=== PATIENT | female | born 1950 | race Caucasian/White ===

== ENCOUNTER 2017-11-02 22:49 | Emergency (ER) | payer MEDICARE ==
[2017-11-02 22:55] VITALS: RESP 18
[2017-11-02] MEDS ORDERED: SODIUM CHLORIDE 0.9% 1,000 ML IV STA ×2 (23:16)
[2017-11-02] MEDS ORDERED: PANTOPRAZOLE 40 MG/10 ML VIAL IVP STA (23:17)
[2017-11-02] MEDS ORDERED: KETOROLAC 30 MG/ML 1 ML VIAL IVP STA (23:17)
[2017-11-02] MEDS ORDERED: MAG HYDROX/AL HYDROX/SIMETH 30 ML, HYOSCYAMINE ELIXIR 10 ML, CIMETIDINE HCL 300 MG PO STA ×3 (23:17)
[2017-11-02 23:34] LABS: Basophils % (A) 0 %; Eosinophils # (A) 0.4 k/uL (0-0.7); Eosinophils % (A) 4 %; HCT 46.8 % (34.0-46.0); HGB 15.5 gm/dL (11.4-16.0); Lymphocytes # (A) 2.8 k/uL (1.0-4.8); Lymphocytes % (A) 29 %; MCH 28.7 pg (25.0-35.0); MCHC 33.2 g/dL (31.0-37.0); MCV 86.5 fL (80.0-100.0); Mean Platelet Volume 7.2; Monocytes # (A) 0.7 k/uL (0-1.0); Monocytes % (A) 7 %; Neutrophils # (A) 5.6 k/uL (1.3-7.7); Neutrophils % (A) 57 %; Platelet Count 223 k/uL (150-450); RBC 5.41 m/uL (3.80-5.40); WBC 9.8 k/uL (3.8-10.6)
[2017-11-02 23:44] LABS: Calcium 10.2 mg/dL (8.4-10.2); Magnesium 2.2 mg/dL (1.6-2.3); Potassium 4.2 mmol/L (3.5-5.1); Total Bilirubin 1.1 mg/dL (0.2-1.3); Total Protein 6.7 g/dL (6.3-8.2)
--- NOTE | 2017-11-02 23:45 | XR ---
EXAMINATION TYPE: XR chest 2V DATE OF EXAM: 11/02/2017 COMPARISON: 06/20/2016 HISTORY: Epigastric pain TECHNIQUE: Frontal and lateral views of the chest are obtained. FINDINGS: Heart and mediastinum are normal. Lungs are clear. Diaphragm is normal. There are chest le ads. Bony thorax is intact. IMPRESSION: Normal chest. No change.
[2017-11-02 23:49] LABS: Partial Thromboplastin Time 24.5 sec (22.0-30.0); Prothrombin Time 10.1 sec (9.0-12.0)
--- NOTE | 2017-11-03 00:03 | ED ---
Chest Pain HPI - General Chief Complaint: Chest Pain Stated Complaint: chest pain Time Seen by Provider: 11/02/17 22:58 Source: patient, RN notes reviewed, old records reviewed Mode of arrival: ambulatory Limitations: no limitations - History of Present Illness Initial Comments: 59-year-old male presents emergency Department chief complaint of burning sensation in her chest. She reports symptomsfor 3 days. She has history of GERD. She is concerned because she's been having the symptoms are not resolving with her usual Prilosec and Zantac that she thought she may have cardiac-related patient does have 1 stent. Denies any significant shortness of breath. She reports she's had no cough. She does state the pain kind of goes to her abdomen. - Related Data Home Medications Medication Instructions Recorded Confirmed Aspirin 162 mg PO BID 07/21/14 10/02/15 Atorvastatin [Lipitor] 80 mg PO QAM 07/21/14 10/02/15 Benazepril HCl 10 mg PO QAM 07/21/14 10/02/15 Insulin Glargine,Hum.rec.anlog 28 units SQ HS 07/21/14 10/02/15 [Lantus Solostar] sitaGLIPtin [Januvia] 100 mg PO QAM 07/21/14 10/02/15 Isosorbide Mononitrate ER [Imdur] 30 mg PO QAM 09/27/15 10/02/15 Metoprolol Succinate [Toprol XL] 50 mg PO BID 09/27/15 10/02/15 metFORMIN HCL 1,000 mg PO AC-SUPPER 09/27/15 10/02/15 metFORMIN HCL [Glucophage] 500 mg PO DAILY 09/27/15 10/02/15 Allergies Allergy/AdvReac Type Severity Reaction Status Date / Time No Known Allergies Allergy Verified 11/02/17 22:54 Review of Systems ROS Statement: Those systems with pertinent positive or pertinent negative responses have been documented in the HPI. ROS Other: All systems not noted in ROS Statement are negative. EKG Findings - EKG Comments: EKG Findings:: EKG shows normal sinus rhythm normal EKG. Ventricular rate of 69 bpm. KS interval 186. QT MRSA 92 ms. QT QTC 396/424. Past Medical History Past Medical History: Coronary Artery Disease (CAD), Cancer, Diabetes Mellitus, Hyperlipidemia, Hypertension, Osteoarthritis (OA) Additional Past Medical History / Comment(s): SKIN CANCER , KIDNEY STONES History of Any Multi-Drug Resistant Organisms: None Reported Past Surgical History: Adenoidectomy, Section, Cholecystectomy, Heart Catheterization, Heart Catheterization With Stent, Joint Replacement, Orthopedic Surgery, Tonsillectomy, Tubal Ligation Additional Past Surgical History / Comment(s): CATARACT BILATERAL EYE, TOTAL RIGHT AND LEFT KNEE, BILATERAL CARPAL TUNNEL RELEASE,C- SECTION X3, Past Anesthesia/Blood Transfusion Reactions: Motion Sickness Date of Last Stent Placement:: 10/2008 Past Psychological History: No Psychological Hx Reported Smoking Status: Never smoker Past Alcohol Use History: None Reported Past Drug Use History: None Reported - Past Family History Mother Family Medical History: Dementia Son(s) Family Medical History: Deep Vein Thrombosis (DVT) General Exam - General Exam Comments Initial Comments: Well appearing 67 year old female, no distress. Limitations: no limitations General appearance: alert, in no apparent distress Head exam: Present: atraumatic, normocephalic, normal inspection Eye exam: Present: normal appearance, PERRL, EOMI. Absent: scleral icterus, conjunctival injection, periorbital swelling ENT exam: Present: normal exam, mucous membranes moist Neck exam: Present: normal inspection. Absent: tenderness, meningismus, lymphadenopathy Cardiovascular Exam: Present: regular rate, normal rhythm, normal heart sounds. Absent: systolic murmur, diastolic murmur, rubs, gallop, clicks GI/Abdominal exam: Present: soft, tenderness (minimal epigastric tenderness), normal bowel sounds. Absent: distended, guarding, rebound, rigid Back exam: Present: normal inspection Neurological exam: Present: alert, oriented X3, CN II-XII intact Psychiatric exam: Present: normal affect, normal mood Course Vital Signs 11/02/17 11/03/17 11/03/17 22:50 00:29 00:43 Temperature 96.9 F L 97.1 F L Pulse Rate 70 62 Respiratory 18 18 Rate Blood Pressure 175/77 137/64 O2 Sat by Pulse 94 L 96 Oximetry Chest Pain MDM - MDM 59-year-old male presents emergency Department chief complaint of burning sensation in her chest. She reports symptomsfor 3 days. She has history of GERD. She is concerned because she's been having the symptoms are not resolving with her usual Prilosec and Zantac that she thought she may have cardiac-related patient does have 1 stent. PAtient EKG is unremarkable, no ST changes. Patient has normal lab work and negative troponin. She felt better after protonix and GI cocktail. Discussed with lenght of symptoms, patient pain is likely GERD vs cardiac etiology with normal lab results. Patient agrees, discussed follow up with PCP and return parameters discussed. Patient agrees and feels well. Disposition Clinical Impression: GERD (gastroesophageal reflux disease) Disposition: HOME SELF-CARE Condition: Good Instructions: Gastroesophageal Reflux Disease (ED) Additional Instructions: Patient advised to have a clear liquid diet for the next few days. Continue your Prilosec and Zantac medications. Return to the emergency department if any alarming signs or symptoms occur. Is patient prescribed a controlled substance at d/c from ED?: No If prescribed controlled substance>3 days was MAPS reviewed?: No When asked, does pt state using other controlled substances?: No Referrals: Lukas Hernandez DO [Primary Care Provider] - 1-2 days Time of Disposition: 00:33
[2017-11-03 00:05] LABS: Creatine Kinase 63 U/L (30-135)
[2017-11-03 00:18] LABS: Creatine Kinase MB 0.5 ng/mL (0.0-2.4); Troponin I <0.012 ng/mL (0.000-0.034)
[2017-11-03 00:30] VITALS: BP 137/64; PULSE 62
[2017-11-03 00:44] VITALS: TEMP 97.1
== END 2017-11-03 00:43 | disposition home or self-care (01) ==
LOC: EC 22:49
DX: K21.9 Gastro-esophageal reflux disease without esophagitis (principal); I25.10 Atherosclerotic heart disease of native coronary artery without angina pectoris; E11.9 Type 2 diabetes mellitus without complications; E78.5 Hyperlipidemia, unspecified; I10 Essential (primary) hypertension; Z95.5 Presence of coronary angioplasty implant and graft; Z79.4 Long term (current) use of insulin; Z79.82 Long term (current) use of aspirin; Z79.84 Long term (current) use of oral hypoglycemic drugs; Z79.899 Other long term (current) drug therapy
CPT/HCPCS: 99285; 96374; 96375; 96361; 36415; 93005; 83880; 80053; 82150; 82550; 82553; 83690; 83735; 84484; 85025; 85610; 85730; 71046; J1885; C9113

== ENCOUNTER → 2018-11-01 | Day surgery (SDC) | payer MEDICARE ==
[2018-10-28 15:29] VITALS: BMI 43.2
[~2018-11-01] MED LIST: LACTATED RINGERS 1,000 ML IV SCH; LIDOCAINE 1% 20 ML VIAL (10MG/ML) FOR IV START INTRADERMA PRN; LIDOCAINE 1% INJ 10MG/ML (20 ML MDV) ONE; PROPOFOL 10 MG/ML 20 ML VIAL IV ONE
[2018-11-01 07:17] VITALS: TEMP 98.1
[2018-11-01 07:25] LABS: Glucose,Whole Blood 187 mg/dL (75-99)
--- NOTE | 2018-11-01 08:34 | P.PCN ---
Date of Procedure: 11/01/18 Procedure(s) Performed: Procedure: Esophagogastroduodenoscopy and biopsy. Preoperative diagnosis: Gastroesophageal reflux and atypical chest pain. Postoperative diagnosis: 1. Small sliding hiatal hernia with no obvious esophagitis or complicated reflux disease. 2. Mild antral gastritis. 3. Multiple biopsies obtained from the duodenum, antrum and esophagus. Preparation and sedation: Was provided by anesthesia. Brief clinical history: The patient is 68-year-old female who was evaluated in the office earlier this month regarding issues with altered bowel function, abdominal pain, gastroesophageal reflux and atypical chest pain. There is family history of colon cancer and she had a colonoscopy in September 2015 that showed diverticulosis. The patient has been having acid reflux issues for the last year and takes omeprazole for that. Over the years, she has taken Zantac as needed for acid indigestion. She has been having epigastric pain and atypical chest pain and left upper quadrant pain. Occasional difficulty swallowing. In addition she has alternating constipation and diarrhea with sig nificant gas. No bleeding or weight loss. Procedure: With the patient on her left lateral decubitus position and after informed consent and adequate sedation, I passed the Olympus-GIF H190 video upp er endoscope through the cricopharyngeus down the esophagus. GE junction was at 40 cm from the incisors and there was a small sliding hiatal hernia but no obvious esophagitis or complicated reflux disease. The endoscope was then passed into the stomach which was insufflated with air and inspected in detail including the retroflex view in the cardia. There was some mottling and erythema in the antrum but no ulcers or erosions. Pyloric channel, duodenal bulb, post bulbar area and descending duodenum appeared within normal limits. I obtained biopsies from the duodenum, antrum and esophagus then the endoscope was withdrawn. The patient tolerated the procedure well. Plan: The patient was reassured. Will await biopsy results and make further plans based on her course and biopsy results.
[2018-11-01 09:00] VITALS: BP 146/76; PULSE 71; RESP 18
== END ==
LOC: ORWHC2ENDO 06:53
DX: K29.50 Unspecified chronic gastritis without bleeding (principal); K21.9 Gastro-esophageal reflux disease without esophagitis; K44.9 Diaphragmatic hernia without obstruction or gangrene; E78.5 Hyperlipidemia, unspecified; I25.10 Atherosclerotic heart disease of native coronary artery without angina pectoris; I10 Essential (primary) hypertension; A08.8 Other specified intestinal infections; E11.9 Type 2 diabetes mellitus without complications; Z79.4 Long term (current) use of insulin; Z80.0 Family history of malignant neoplasm of digestive organs; Z95.5 Presence of coronary angioplasty implant and graft; Z87.442 Personal history of urinary calculi; Z79.82 Long term (current) use of aspirin; Z79.899 Other long term (current) drug therapy
CPT/HCPCS: 88305; 43239; J2001; J2704

== ENCOUNTER 2019-01-31 21:10 | Observation (INO) | payer MEDICARE ==
[2019-01-31] MEDS ORDERED: SODIUM CHLORIDE 0.9% 1,000 ML IV STA (21:50)
--- NOTE | 2019-01-31 21:50 | ED ---
Chest Pain HPI - General Stated Complaint: Tightness in Chest Source: patient Mode of arrival: ambulatory Limitations: no limitations - History of Present Illness Initial Comments: Vita Romero is a 68-year-old female with known coronary artery disease status post stenting approximately 10 years ago and a cardiac catheterization about 8 years ago at which time she was told she had some blockages but none warranting stenting at that time. Patient reports that she follows annually with her heel dipper Dr. Singleton. Patient reports that today she was just doing her usual activities, she was home when she began feeling some discomfort in her chest and lightheadedness. Patient reports feeling a pressure-like discomfort, seems to be relieved with rest, came on suddenly. With this she felt somewhat lightheaded but again feels better resting here in the emergency department. Patient is taken 4 baby aspirin today prior to arrival. Patient denies any associated fevers, chills, palpitations, cough or recent illness. - Related Data Home Medications Medication Instructions Recorded Confirmed Aspirin 162 mg PO BID 07/21/14 01/31/19 Atorvastatin [Lipitor] 80 mg PO W/SUPPER 07/21/14 01/31/19 Insulin Glargine,Hum.rec.anlog 25 units SQ HS 07/21/14 01/31/19 [Lantus Solostar] Isosorbide Mononitrate ER [Imdur] 30 mg PO W/SUPPER 09/27/15 01/31/19 Metoprolol Succinate [Toprol XL] 50 mg PO QAM 09/27/15 01/31/19 Benazepril [Lotensin] 5 mg PO W/SUPPER 10/28/18 01/31/19 Cholecalciferol [Vitamin D3] 5,000 unit PO DAILY 10/28/18 01/31/19 Insulin Aspart [NovoLOG Flexpen] 10 units SQ TID-W/MEALS PRN 10/28/18 01/31/19 Omeprazole [PriLOSEC] 20 mg PO AC-BRKFST 10/28/18 01/31/19 Pioglitazone [Actos] 30 mg PO DAILY 10/28/18 01/31/19 Bifidobacterium Infantis [Align] 4 mg PO DAILY 01/31/19 01/31/19 Calcium Carbonate [Calcium] 1,200 mg PO DAILY 01/31/19 01/31/19 Insulin Aspart [NovoLOG Flexpen] See Protocol SQ AC-TID 01/31/19 01/31/19 Allergies Allergy/AdvReac Type Severity Reaction Status Date / Time No Known Allergies Allergy Verified 01/31/19 21:54 Review of Systems ROS Statement: Those systems with pertinent positive or pertinent negative responses have been documented in the HPI. ROS Other: All systems not noted in ROS Statement are negative. EKG Findings - EKG Comments: EKG Findings:: EKG was obtained due to his complaint of chest pain, EKG was obtained at 2132, rate is 71 rhythm is sinus there is normal axis there are normal intervals, [place] 172, QRS 90, QTc is 421, there are no acute ST elevations or depressions there is no evidence of acute ischemia or infarction. Past Medical History Past Medical History: Coronary Artery Disease (CAD), Cancer, Diabetes Mellitus, GERD/Reflux, Hypertension, Osteoarthritis (OA) Additional Past Medical History / Comment(s): SKIN CANCER , KIDNEY STONES, diarrhea for 6 weeks couple months ago, urinary leakage History of Any Multi-Drug Resistant Organisms: None Reported Past Surgical History: Adenoidectomy, Section, Cholecystectomy, Heart Catheterization, Heart Catheterization With Stent, Joint Replacement, Orthopedic Surgery, Tonsillectomy, Tubal Ligation Additional Past Surgical History / Comment(s): CATARACT BILATERAL EYE, TOTAL mallorie KNEE replacement, BILATERAL CARPAL TUNNEL RELEASE,C- SECTION X3, cancer removed from upper lip Past Anesthesia/Blood Transfusion Reactions: Motion Sickness Date of Last Stent Placement:: 10/2008 Past Psychological History: No Psychological Hx Reported Smoking Status: Never smoker Past Alcohol Use History: None Reported Past Drug Use History: None Reported - Past Family History Son(s) Family Medical History: Deep Vein Thrombosis (DVT) General Exam - General Exam Comments Initial Comments: Physical Exam GENERAL: Patient is well-developed and well-nourished. Patient is nontoxic and well- hydrated and is in no distress. HENT: Normocephalic, Atraumatic. EYES: PERRL, EOMI PULMONARY: Unlabored respirations. No audible rales rhonchi or wheezing was noted. CARDIOVASCULAR: There is a regular rate and rhythm without any murmurs gallops or rubs. Warm and well-perfused extremities No lower extremity edema ABDOMEN: Soft and nontender with normal bowel sounds. SKIN: Skin is clear with no lesions or rashes and otherwise unremarkable. : Deferred NEUROLOGIC: Patient is alert and oriented x3. Moving all extremities spontaneously MUSCULOSKELETAL: Normal extremities with adequate strength and full range of motion. No lower extremity swelling or edema. No calf tenderness. PSYCHIATRIC: Normal psychiatric evaluation Limitations: no limitations Course Vital Signs 01/31/19 21:27 Temperature 98.1 F Pulse Rate 63 Respiratory 18 Rate Blood Pressure 139/80 O2 Sat by Pulse 98 Oximetry Chest Pain MDM - MDM The patient was seen and evaluated, history is obtained from the patient and review of medical record Patient with multiple cardiac risk factors including known coronary artery disease, previous stenting, previous cardiac cath with known partial occlusions, hypertension, hyperlipidemia, diabetes obesity and advanced age presenting with chest pain that began with minimal exertion resolved with rest associated with lightheadedness and shortness of breath Initial EKG is nonischemic HEART score - 6 Initial labs were negative however given the high-risk nature of the patient's pain decision was made to start heparin and admit the patient for further evaluation by cardiology. Patient was updated on this plan for this and is agreeable. Primary care physician Dr. Hernandez typically admits to Dr. murphy however and his absence will be admitted to [facility] with patient's heel dipper Dr. Denise in on consult. Disposition Clinical Impression: Chest pain Disposition: ADMITTED IP TO THIS HOSP Condition: Stable Referrals: Lukas Hernandez DO [Primary Care Provider] - 1-2 days
[2019-01-31 22:01] LABS: Basophils % (A) 0 %; Eosinophils # (A) 0.2 k/uL (0-0.7); Eosinophils % (A) 3 %; HCT 44.9 % (34.0-46.0); HGB 14.7 gm/dL (11.4-16.0); Lymphocytes # (A) 3.2 k/uL (1.0-4.8); Lymphocytes % (A) 35 %; MCH 29.2 pg (25.0-35.0); MCHC 32.8 g/dL (31.0-37.0); MCV 88.9 fL (80.0-100.0); Mean Platelet Volume 6.8; Monocytes # (A) 0.8 k/uL (0-1.0); Monocytes % (A) 9 %; Neutrophils # (A) 4.5 k/uL (1.3-7.7); Neutrophils % (A) 50 %; Platelet Count 237 k/uL (150-450); RBC 5.05 m/uL (3.80-5.40); RDW 13.3 % (11.5-15.5)
[2019-01-31 22:11] LABS: Albumin 4.2 g/dL (3.5-5.0); INR 0.9 (<1.2); Magnesium 2.2 mg/dL (1.6-2.3); Potassium 4.2 mmol/L (3.5-5.1); Prothrombin Time 10.1 sec (9.0-12.0); Total Bilirubin 1.2 mg/dL (0.2-1.3); Total Protein 7.4 g/dL (6.3-8.2)
--- NOTE | 2019-01-31 22:24 | XR ---
EXAM: XR Chest, 2 Views CLINICAL HISTORY: ITS.REASON XR Reason: Chest Pain TECHNIQUE: Frontal and lateral views of the chest. COMPARISON: Chest radiography 11/02/17. FINDINGS: Lungs: Unremarkable. No consolidation. Pleural space: Unremarkable. No pneumothorax. Heart: Unremarkable. No cardiomegaly. Mediastinum: Unremarkable. Bones/joints: Degenerative spine changes. IMPRESSION: No acute cardiopulmonary disease.
[2019-01-31] MEDS ORDERED: NITROGLYCERIN SL TABS 0.4 MG TAB SUBLINGUAL PRN (22:32)
[2019-01-31] MEDS ORDERED: MORPHINE SULFATE 4 MG/ML SYRINGE IV PRN (22:32)
[2019-01-31] MEDS ORDERED: HEPARIN SODIUM,PORCINE 5,000 UNIT/ML 1 ML VIAL IV ONE (22:32)
[2019-01-31] MEDS ORDERED: HEPARIN SOD,PORK IN 0.45% NACL 25,000 UNIT in 0.45% NACL 1 250ML.BAG IV SCH (22:45)
[2019-01-31 23:51] LABS: Glucose,Whole Blood 103 mg/dL (75-99)
[2019-02-01 00:19] VITALS: BMI 44.0
[2019-02-01 04:51] LABS: Mean Platelet Volume 6.8; Platelet Count 204 k/uL (150-450)
[2019-02-01 04:59] LABS: Cholesterol 96 mg/dL (<200); HDL Cholesterol 45 mg/dL (40-60); LDL Cholesterol,Calculated 39 mg/dL (0-99); Triglycerides 61 mg/dL (<150)
[2019-02-01 06:34] LABS: Glucose,Whole Blood 111 mg/dL (75-99)
[2019-02-01] MEDS: INSULIN ASPART (NovoLOG) 100 UNIT/ML VIAL SQ SCH ×3 (06:34→16:18)
[2019-02-01] MEDS ORDERED: PANTOPRAZOLE 40 MG TABLET PO SCH (07:30)
[2019-02-01 08:18] VITALS: RESP 18
[2019-02-01] MEDS ORDERED: ASPIRIN 325 MG TAB PO SCH (09:00)
[2019-02-01] MEDS ORDERED: METOPROLOL SUCCINATE (ER) 50 MG TAB.ER.24H PO SCH (09:00)
[2019-02-01] MEDS ORDERED: ASPIRIN 325 MG TAB PO STA (09:46)
[2019-02-01] MEDS ORDERED: ALPRAZolam 0.5 MG TAB PO PRN (09:46)
[2019-02-01] MEDS ORDERED: NITROGLYCERIN SL TABS 0.4 MG TAB SUBLINGUAL PRN (09:46)
[2019-02-01] MEDS ORDERED: SODIUM CHLORIDE 0.9% 1,000 ML in EMPTY BAG 1 BAG IV ONE (09:46)
[2019-02-01] MEDS ORDERED: ALPRAZolam 0.25 MG TAB PO PRN (09:46)
[2019-02-01] MEDS ORDERED: ATORVASTATIN 80 MG TAB PO STA (09:46)
[2019-02-01] MEDS ORDERED: fentaNYL (PF) 50 MCG/ML 2 ML AMP ONE (10:02)
[2019-02-01] MEDS ORDERED: LIDOCAINE 1% INJ 10MG/ML (20 ML MDV) ONE (10:02)
--- NOTE | 2019-02-01 10:10 | CONS ---
CONSULTATION CHIEF COMPLAINT: Chest pain. Vita is a 68-year-old lady with history of coronary artery disease, hypertension, diabetes, dyslipidemia, who presented to hospital complaining of chest tightness. She describes it as moderate intensity, precordial chest pressure that came on with exertion and radiated to her back. She took one sublingual nitroglycerin last night. She has known CAD and underwent angioplasty of mid LAD in 2004. At the time of my evaluation this morning, she appears comfortable at rest and is free of symptoms. She has had 2 sets of troponins that are negative. Her LDL cholesterol is well controlled. EKG does not reveal ischemic changes. Hemoglobin is normal at 14.7 and the creatinine is 0.8. PAST MEDICAL HISTORY: Significant for coronary artery disease, hypertension, diabetes, dyslipidemia. MEDICATIONS: Medications include Actos, Prilosec, Toprol XL, Imdur 30 daily, insulin, calcium, Lotensin, Lipitor, aspirin. ALLERGIES: There are no known drug allergies. FAMILY HISTORY: Family history is significant for coronary artery disease in her grandparents. SOCIAL HISTORY: Negative for smoking, ETOH abuse or drug abuse. REVIEW OF SYSTEMS: HEENT is unremarkable. CARDIAC: As described above. RESPIRATORY: Negative. GI: Negative. GENITOURINARY: Negative. ALLERGY/IMMUNOLOGY: Negative. SKIN: Negative. MUSCULOSKELETAL: Significant for arthritis. PSYCHOSOCIAL: Negative. ENDOCRINE: Negative. DERM: Negative. CONSTITUTIONAL: Negative. ONCOLOGICAL: Negative. TAPE DUPLICATOR: Negative. Rest of the system review is not relevant. PHYSICAL EXAMINATION: On exam, comfortable at rest. Vital signs are stable. There is no jugular venous distention. Carotid upstroke is normal. There is no bruit. Chest exam reveals good air entry bilaterally. Heart exam reveals first and second heart sounds. No gallop. No murmur. No rub. Abdomen is soft, nontender. Examination of extremities did not reveal any edema. Peripheral pulses are felt. ASSESSMENT: 1. Unstable angina. 2. Hypertension. 3. Diabetes. 4. Dyslipidemia. PLAN: I advised the patient to undergo cardiac catheterization. I will obtain a 2-D echo to evaluate her LV function. MMODL / IJN: [id number] /
[2019-02-01] MEDS ORDERED: SODIUM CHLORIDE 0.9% 500 ML 500 ML IV ONE (10:25)
[2019-02-01] MEDS ORDERED: fentaNYL (PF) 50 MCG/ML 2 ML AMP IV ONE (10:35)
[2019-02-01] MEDS ORDERED: MIDAZOLAM (PF) 2 MG/2 ML VIAL IV ONE (10:35)
[2019-02-01] MEDS ORDERED: LIDOCAINE 1% INJ 10MG/ML (20 ML MDV) SQ ONE (10:36)
[2019-02-01] MEDS ORDERED: IOPAMIDOL-370 100ML BTL INJ ONE (10:46)
[2019-02-01] MEDS ORDERED: RX INFO: IV CONTRAST WAS GIVEN 1 EACH MISC MISCELLANE PRN (11:07)
--- NOTE | 2019-02-01 11:11 | CC ---
CARDIAC CATHETERIZATION REPORT INDICATION: Unstable angina in a patient with known CAD status post prior angioplasty of circumflex coronary artery. PROCEDURE NOTE: After obtaining informed consent, left heart catheterization and coronary angiogram are performed via the right femoral artery using standard Cooper catheters. The patient tolerated the procedure well without any obvious immediate complications. A femoral angiogram was performed and Angio-Seal was deployed for hemostasis. FINDINGS: 1. HEMODYNAMICS: Left ventricular end-diastolic pressure is 14 mm. There is no significant gradient across the aortic valve. 2. LEFT VENTRICULOGRAM: Left ventriculogram is not performed. 3. ANGIOGRAPHIC DATA: Left Main Coronary Artery: Left main coronary artery is a normal-sized vessel and is free of stenosis. Divides into left anterior descending coronary artery and circumflex coronary artery. Circumflex coronary artery was previously stented and the stent appears patent. Both the circumflex and the LAD appear calcified. There is a moderate area of atherosclerotic plaque in the mid LAD which seems unchanged compared to prior cardiac catheterization in 2015. Right coronary artery is a large dominant vessel and is free of significant stenosis. CONCLUSIONS: 1. Patent stent within the circumflex coronary artery. 2. Moderate atherosclerotic plaque in the LAD. 3. Calcified coronaries. PLAN: Patient will have optimal medical therapy. Patient received moderate conscious sedation. Total sedation time was 11 minutes. Angio-Seal was deployed for hemostasis. MMODL / IJN: [id number] /
[2019-02-01] MEDS ORDERED: SODIUM CHLORIDE 0.9% 1,000 ML IV SCH (11:15)
[2019-02-01 12:00] LABS: Glucose,Whole Blood 111 mg/dL (75-99)
--- NOTE | 2019-02-01 13:33 | ECHOF ---
Referral Reason:chest pain, known CAD MEASUREMENTS -------- HEIGHT: 157.5 cm WEIGHT: 109.3 kg BP: 128/58 IVSd: 1.2 cm (0.6 - 1.1) LVIDd: 5.1 cm (3.9 - 5.3) LVPWd: 1.1 cm (0.6 - 1.1) IVSs: 1.5 cm LVIDs: 3.0 cm LVPWs: 1.5 cm LA Diam: 3.9 cm (2.7 - 3.8) Ao Diam: 3.2 cm (2.0 - 3.7) AV Cusp: 1.9 cm (1.5 - 2.6) LA Diam: 4.2 cm (2.7 - 3.8) MV EXCURSION: 17.007 mm (> 18.000) MV EF SLOPE: 93 mm/s (70 - 150) EPSS: 0.3 cm MV E Jagdeep: 1.11 m/s MV DecT: 465 ms MV A Jagdeep: 0.96 m/s MV E/A Ratio: 1.15 AR PHT: 937 ms FINDINGS -------- Sinus rhythm. This was a technically good study. LV size, wall thickness and systolic function are normal, with an EF greater than 55%. The right ventricle is normal in size and function. The left atrium is normal in size. The right atrium is normal in size. Interatrial and interventricular septum intact. There is mild aortic valve sclerosis. There is mild aortic regurgitation. The mitral valve is normal. Mild mitral annular calcification present. There is trace to mild frantz ral regurgitation. The tricuspid valve appears structurally normal. Trace tricuspid regurgitation present. There is no evidence of pulmonary hypertension. Pulmonic valve appears structurally normal. The aortic root, ascending aorta and aortic arch are normal. Normal inferior vena cava with normal inspiratory collapse consistent with estimated right atrial pre ssure of 5 mmHg. The pericardium is normal. CONCLUSIONS -------- 1. Sinus rhythm. 2. This was a technically good study. 3. LV size, wall thickness and systolic function are normal, with an EF greater than 55%. 4. The right ventricle is normal in size and function. 5. The left atrium is normal in size. 6. The right atrium is normal in size. 7. Interatrial and interventricular septum intact. 8. There is mild aortic valve sclerosis. 9. There is mild aortic regurgitation. 10. The mitral valve is normal. 11. Mild mitral annular calcification present. 12. There is trace to mild mitral regurgitation. 13. The tricuspid valve appears structurally normal. 14. Trace tricuspid regurgitation present. 15. There is no evidence of pulmonary hypertension. 16. Pulmonic valve appears structurally normal. 17. The aortic root, ascending aorta and aortic arch are normal. 18. Normal inferior vena cava with normal inspiratory collapse consistent with estimated right atrial pressure of 5 mmHg. 19. The pericardium is normal. POWER LINE INSTALLER AND REPAIRER: Case Jerez RDCS
[2019-02-01 16:11] VITALS: BP 143/76; PULSE 67; TEMP 98.1
[2019-02-01] MEDS ORDERED: ATORVASTATIN 80 MG TAB PO SCH (17:30)
[2019-02-01] MEDS ORDERED: ISOSORBIDE MONONITRATE ER 30 MG TAB.ER.24H PO SCH (17:30)
[2019-02-01] MEDS ORDERED: LISINOPRIL 5 MG TAB PO SCH (17:30)
[2019-02-01] MEDS ORDERED: ASPIRIN 81 MG PO SCH (21:00)
--- NOTE | 2019-02-13 23:59 | P.HPIM ---
History of Present Illness H&P Date: 02/01/19 Chief Complaint: chest Pain Vita Romero is a 68-year-old female with known coronary artery disease status post stenting approximately 10 years ago and a cardiac catheterization about 8 years ago at which time she was told she had some blockages but none warranting stenting at that time. Patient reports that she follows annually with her landscape horticulture instructor Dr. charles. Patient reports that today she was just doing her usual activities, she was home when she began feeling some discomfort in her chest and lightheadedness. Patient reports feeling a pressure-like discomfort, seems to be relieved with rest, came on suddenly. With this she felt somewhat lightheaded but again feels better resting here in the emergency department. Patient is taken 4 baby aspirin today prior to arrival. Patient denies any associated fevers, chills, palpitations, cough or recent illness. EKG NSR CXR showed no cute cardiopulmonary process. troponi X2 negative Review of Systems Constitutional: Patient denies any fever or chills . Generalized weakness and body aches. Cardiovascular: Patient denies any chest pain or short of breath no pal pitations. Respiratory: patient denied any cough is from production. No shortness of breath Neurologic: Patient denied any numbness or tingling headache. Musculoskeletal: Patient denies any complaints of joint swelling or deformity. Skin: Negative Psychiatric: Negative Endocrine: No heat or cold intolerance. No recent weight gain. Genitourinary: No dysuria or hematuria. All other 14 point ROS negative except the above Past Medical History Past Medical History: Coronary Artery Disease (CAD), Cancer, Diabetes Mellitus, GERD/Reflux, Hypertension, Osteoarthritis (OA) Additional Past Medical History / Comment(s): SKIN CANCER , KIDNEY STONES, diarrhea for 6 weeks couple months ago, urinary leakage History of Any Multi-Drug Resistant Organisms: None Reported Past Surgical History: Adenoidectomy, Section, Cholecystectomy, Heart Catheterization, Heart Catheterization With Stent, Joint Replacement, Orthopedic Surgery, Tonsillectomy, Tubal Ligation Additional Past Surgical History / Comment(s): CATARACT BILATERAL EYE, TOTAL mallorie KNEE replacement, BILATERAL CARPAL TUNNEL RELEASE,C- SECTION X3, 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 Brother(s) Family Medical History: Cancer Additional Family Medical History / Comment(s): Pancreatic cancer, at age 62. Medications and Allergies Home Medications Medication Instructions Recorded Confirmed Type Aspirin 162 mg PO BID 07/21/14 01/31/19 History Atorvastatin [Lipitor] 80 mg PO W/SUPPER 07/21/14 01/31/19 History Insulin Glargine,Hum.rec.anlog 25 units SQ HS 07/21/14 01/31/19 History [Lantus Solostar] Isosorbide Mononitrate ER [Imdur] 30 mg PO W/SUPPER 09/27/15 01/31/19 History Metoprolol Succinate [Toprol XL] 50 mg PO QAM 09/27/15 01/31/19 History Benazepril [Lotensin] 5 mg PO W/SUPPER 10/28/18 01/31/19 History Cholecalciferol [Vitamin D3 (25 5,000 unit PO DAILY 10/28/18 01/31/19 History Mcg = 1000 Iu)] Insulin Aspart [NovoLOG Flexpen] 10 units SQ TID-W/MEALS PRN 10/28/18 01/31/19 History Omeprazole [PriLOSEC] 20 mg PO AC-BRKFST 10/28/18 01/31/19 History Pioglitazone [Actos] 30 mg PO DAILY 10/28/18 01/31/19 History Bifidobacterium Infantis [Align] 4 mg PO DAILY 01/31/19 01/31/19 History Calcium Carbonate [Calcium] 1,200 mg PO DAILY 01/31/19 01/31/19 History Insulin Aspart [NovoLOG Flexpen] See Protocol SQ AC-TID 01/31/19 01/31/19 History Allergies Allergy/AdvReac Type Severity Reaction Status Date / Time No Known Allergies Allergy Verified 01/31/19 21:54 Physical Exam Vitals: Vital Signs Temp Pulse Pulse Resp BP BP BP 02/01/19 08:00 98.2 F 61 18 144/69 02/01/19 04:00 97.7 F 63 16 128/58 02/01/19 00:00 97.7 F 70 17 166/71 01/31/19 23:06 66 16 120/62 01/31/19 23:00 67 15 01/31/19 22:30 65 18 139/80 01/31/19 21:27 98.1 F 63 18 139/80 01/31/19 21:25 Pulse Ox 02/01/19 08:00 96 02/01/19 04:00 02/01/19 00:00 96 01/31/19 23:06 98 01/31/19 23:00 95 01/31/19 22:30 97 01/31/19 21:27 98 01/31/19 21:25 98 Intake and Output 01/31/19 02/01/19 02/01/19 22:59 06:59 14:59 Intake Total 50 Balance 50 Intake: IV 50 Other: Voiding Method Toilet # Voids 1 1 # Bowel Movements 0 Weight 108.862 kg 109.6 kg Physical Exam GENERAL: Patient is well-developed and well-nourished. Patient is nontoxic and well- hydrated and is in no distress. HENT: Normocephalic, Atraumatic. EYES: PERRL, EOMI PULMONARY: Unlabored respirations. No audible rales rhonchi or wheezing was noted. CARDIOVASCULAR: There is a regular rate and rhythm without any murmurs gallops or rubs. Warm and well-perfused extremities No lower extremity edema ABDOMEN: Soft and nontender with normal bowel sounds. SKIN: Skin is clear with no lesions or rashes and otherwise unremarkable. : Deferred NEUROLOGIC: Patient is alert and oriented x3. Moving all extremities spontaneously MUSCULOSKELETAL: Normal extremities with adequate strength and full range of motion. No lower extremity swelling or edema. No calf tenderness. PSYCHIATRIC: Normal psychiatric evaluation Limitations: no limitations Results CBC & Chem 7: 02/01/19 04:18 01/31/19 21:38 Labs: Abnormal Lab Results - Last 24 Hours (Table) 01/31/19 01/31/19 02/01/19 Range/Units 21:38 23:49 04:18 APTT 70.7 H (22.0-30.0) sec BUN 22 H (7-17) mg/dL POC Glucose (mg/dL) 103 H (75-99) mg/dL 02/01/19 Range/Units 06:33 APTT (22.0-30.0) sec BUN (7-17) mg/dL POC Glucose (mg/dL) 111 H (75-99) mg/dL Thrombosis Risk Factor Assmnt - DVT/VTE Prophylaxis DVT/VTE Prophylaxis: Pharmacologic Prophylaxis ordered - Choose All That Apply Any of the Below Risk Factors Present?: Yes Each Factor Represents 1 point: Obesity (BMI >25) Other Risk Factors: Yes Each Risk Factor Represents 2 Points: Age 61-74 years Other congenital or acquired thrombophilia - If yes, enter type in comment: No Thrombosis Risk Factor Assessment Total Risk Factor Score: 3 Thrombosis Risk Factor Assessment Level: Moderate Risk Assessment and Plan Assessment: Unstable angina History of coronary artery disease status post stent placement Hypertension Diabetes type 2 Hyperlipidemia GERD PLan: Pt. will be continued on tele. serial troponin x2 negative. continued with insulin dose. continued with home meds. cardiology consult and further recommendations based on clinical course. Time with Patient: Greater than 30
--- NOTE | 2019-02-14 00:02 | P.DS ---
Providers Date of admission: 01/31/19 22:37 Expected date of discharge: 02/01/19 Attending physician: Ervin Zavala MD Consults: 01/31/19 22:33 Consult Physician Urgent Consulting Provider: Yuriy Jones Consult Reason/Comments: chest pain - known CAD Do you want consulting provider notified?: Yes, Notify in am Primary care physician: [facility] Course: Discharge Diagnosis Unstable angina History of coronary artery disease status post stent placement Hypertension Diabetes type 2 Hyperlipidemia GERD Hospital course. Vita Romero is a 68-year-old female with known coronary artery disease status post stenting approximately 10 years ago and a cardiac catheterization about 8 years ago at which time she was told she had some blockages but none warranting stenting at that time. Patient reports that she follows annually with her marine radio installer and servicer Dr. charles. Patient reports that today she was just doing her usual activities, she was home when she began feeling some discomfort in her chest and lightheadedness. Patient reports feeling a pressure-like discomfort, seems to be relieved with rest, came on suddenly. With this she felt somewhat lightheaded but again feels better resting here in the emergency department. Patient is taken 4 baby aspirin today prior to arrival. Patient denies any associated fevers, chills, palpitations, cough or recent illness. EKG NSR CXR showed no cute cardiopulmonary process. troponi X2 negative. Pt. was continued on tele. serial troponin x2 negative. continued with insulin dose. continued with home meds. cardiology consulted. s/p cardiac cath. Patent circumflex stent. stable to be discharged now. Pt. is chest pain free. Discharge PE was done and vitals reviewed. Patient Condition at Discharge: Stable Plan - Discharge Summary Discharge Rx Participant: No New Discharge Prescriptions: Continue Insulin Glargine,Hum.rec.anlog [Lantus Solostar] 25 units SQ HS Atorvastatin [Lipitor] 80 mg PO W/SUPPER Aspirin 162 mg PO BID Metoprolol Succinate [Toprol XL] 50 mg PO QAM Isosorbide Mononitrate ER [Imdur] 30 mg PO W/SUPPER Cholecalciferol [Vitamin D3 (25 Mcg = 1000 Iu)] 5,000 unit PO DAILY Insulin Aspart [NovoLOG Flexpen] 10 units SQ TID-W/MEALS PRN PRN Reason: Blood Sugar - High Benazepril [Lotensin] 5 mg PO W/SUPPER Pioglitazone [Actos] 30 mg PO DAILY Omeprazole [PriLOSEC] 20 mg PO AC-BRKFST Bifidobacterium Infantis [Align] 4 mg PO DAILY Calcium Carbonate [Calcium] 1,200 mg PO DAILY Insulin Aspart [NovoLOG Flexpen] See Protocol SQ AC-TID Discharge Medication List Aspirin 162 mg PO BID 07/21/14 [History] Atorvastatin [Lipitor] 80 mg PO W/SUPPER 07/21/14 [History] Insulin Glargine,Hum.rec.anlog [Lantus Solostar] 25 units SQ HS 07/21/14 [History] Isosorbide Mononitrate ER [Imdur] 30 mg PO W/SUPPER 09/27/15 [History] Metoprolol Succinate [Toprol XL] 50 mg PO QAM 09/27/15 [History] Benazepril [Lotensin] 5 mg PO W/SUPPER 10/28/18 [History] Cholecalciferol [Vitamin D3 (25 Mcg = 1000 Iu)] 5,000 unit PO DAILY 10/28/18 [History] Insulin Aspart [NovoLOG Flexpen] 10 units SQ TID-W/MEALS PRN 10/28/18 [History] Omeprazole [PriLOSEC] 20 mg PO AC-BRKFST 10/28/18 [History] Pioglitazone [Actos] 30 mg PO DAILY 10/28/18 [History] Bifidobacterium Infantis [Align] 4 mg PO DAILY 01/31/19 [History] Calcium Carbonate [Calcium] 1,200 mg PO DAILY 01/31/19 [History] Insulin Aspart [NovoLOG Flexpen] See Protocol SQ AC-TID 01/31/19 [History] Follow up Appointment(s)/Referral(s): Yuriy Jones MD [STAFF PHYSICIAN] - 02/09/19 10:00 am (Thursday with ADMINISTRATIVE ASSISTANT RECEPTIONIST) Luksa Hernandez DO [Primary Care Provider] - 02/08/19 8:20 am (Thursday with ADMINISTRATIVE ASSISTANT RECEPTIONIST) Patient Instructions/Handouts: *[facility] - After Heart Catheterization - Director Of Dietary Instructions, Left Heart Catheterization (DC) Discharge Disposition: HOME SELF-CARE
== END 2019-02-01 17:11 | disposition home or self-care (01) ==
LOC: EC 21:10 → 3SCARD 22:37
PROVIDERS: ADMIT Internal Medicine; ATTEND Internal Medicine
DX: I25.110 Atherosclerotic heart disease of native coronary artery with unstable angina pectoris (principal); E78.5 Hyperlipidemia, unspecified; K21.9 Gastro-esophageal reflux disease without esophagitis; I10 Essential (primary) hypertension; E11.9 Type 2 diabetes mellitus without complications; M19.90 Unspecified osteoarthritis, unspecified site; R32 Unspecified urinary incontinence; E66.9 Obesity, unspecified; Z68.41 Body mass index [BMI] 40.0-44.9, adult; Z79.82 Long term (current) use of aspirin; Z79.4 Long term (current) use of insulin; Z79.899 Other long term (current) drug therapy; Z87.442 Personal history of urinary calculi; Z85.828 Personal history of other malignant neoplasm of skin; Z90.49 Acquired absence of other specified parts of digestive tract; Z95.5 Presence of coronary angioplasty implant and graft; Z96.653 Presence of artificial knee joint, bilateral; Z98.42 Cataract extraction status, left eye; Z98.41 Cataract extraction status, right eye; Z98.51 Tubal ligation status; Z82.49 Family history of ischemic heart disease and other diseases of the circulatory system; Z82.0 Family history of epilepsy and other diseases of the nervous system; Z80.0 Family history of malignant neoplasm of digestive organs
CPT/HCPCS: 99152; 96374; 99285; 36415; 93005; 93306; 93458; 83880; 80061; 80053; 83735; 84484 ×2; 85025; 85049; 85610; 85730 ×2; 71046; G0378 ×2; C1760; C1894; C1769; J1644 ×2; J2001; J3010; Q9967; J2250

== ENCOUNTER 2019-05-10 00:17 | Observation (INO) | payer MEDICARE ==
--- NOTE | 2019-05-10 00:42 | ED ---
Neuro HPI - General Chief Complaint: Neuro Symptoms/Deficit Stated Complaint: rt side arm/face numbness Time Seen by Provider: 05/10/19 00:33 Source: patient Mode of arrival: ambulatory Limitations: no limitations - History of Present Illness Is the patient presenting with stroke symptoms?: Yes Last Known Well Date: 05/09/19 Last Known Well Time: 22:15 Onset/Timin -: hour(s) Initial Comments: This patient is 68-year-old woman who presents to be evaluated for right sided face and body tingling/numbness. She states that her symptoms came on a little after 10 PM, while she was at rest, watching television. She noticed that her face and right arm were feeling a little bit numb or tingling. She also then found that her leg was feeling same way. When the symptoms did not resolve, she became concerned that this may represent onset of a stroke. She denies weakness or lack of coordination with the right side. No change in vision, speech, or swallowing. No headache or neck pain. Location: right face, right arm, right leg History of same: No Place: home Severity: mild Quality: tingling Improves With: none Worsens With: none On Anticoagulants: No Context: sudden onset Associated Symptoms: denies other symptoms Treatments Prior to Arrival: Aspirin - Related Data Home Medications: Home Medications Medication Instructions Recorded Confirmed Aspirin 162 mg PO BID 07/21/14 05/10/19 Atorvastatin [Lipitor] 80 mg PO W/SUPPER 07/21/14 05/10/19 Insulin Glargine,Hum.rec.anlog 25 units SQ HS 07/21/14 05/10/19 [Lantus Solostar] Metoprolol Succinate [Toprol XL] 50 mg PO QAM 09/27/15 05/10/19 Cholecalciferol [Vitamin D3 (25 1,000 unit PO BID 10/28/18 05/10/19 Mcg = 1000 Iu)] Insulin Aspart [NovoLOG Flexpen] 10 units SQ TID-W/MEALS 10/28/18 05/10/19 Omeprazole [PriLOSEC] 20 mg PO AC-BRKFST 10/28/18 05/10/19 Pioglitazone [Actos] 30 mg PO DAILY 10/28/18 05/10/19 Bifidobacterium Infantis [Align] 4 mg PO DAILY 01/31/19 05/10/19 Calcium Carbonate [Calcium] 600 mg PO BID 01/31/19 05/10/19 Insulin Aspart [NovoLOG Flexpen] See Protocol SQ AC-TID PRN 01/31/19 05/10/19 Benazepril HCl 10 mg PO DAILY 05/10/19 05/10/19 Isosorbide Mononitrate ER [Imdur] 30 mg PO W/SUPPER 05/10/19 05/10/19 Allergies/Adverse Reactions: Allergies Allergy/AdvReac Type Severity Reaction Status Date / Time No Known Allergies Allergy Verified 05/10/19 07:33 Review of Systems ROS Statement: Those systems with pertinent positive or pertinent negative responses have been documented in the HPI. ROS Other: All systems not noted in ROS Statement are negative. Constitutional: Denies: fever, chills Eyes: Denies: vision change ENT: Denies: hearing loss Respiratory: Denies: cough, dyspnea Cardiovascular: Denies: chest pain, palpitations, syncope Gastrointestinal: Denies: abdominal pain, vomiting, diarrhea Genitourinary: Denies: dysuria, hematuria Musculoskeletal: Denies: back pain Skin: Denies: rash Neurological: Reports: paresthesias. Denies: headache, weakness, numbness General Exam Limitations: no limitations General appearance: alert, in no apparent distress Head exam: Present: atraumatic, normocephalic Eye exam: Present: normal appearance, PERRL, EOMI. Absent: scleral icterus, conjunctival injection, nystagmus ENT exam: Present: normal oropharynx Neck exam: Present: normal inspection Respiratory exam: Present: normal lung sounds bilaterally. Absent: respiratory distress, wheezes, rales, rhonchi, stridor Cardiovascular Exam: Present: regular rate, normal rhythm, normal heart sounds. Absent: systolic murmur, diastolic murmur, rubs, gallop GI/Abdominal exam: Present: soft. Absent: distended, tenderness, guarding, rebound, rigid Extremities exam: Present: normal inspection, normal capillary refill. Absent: pedal edema, calf tenderness Back exam: Present: normal inspection. Absent: CVA tenderness (R), CVA tendern ess (L) Neurological exam: Present: alert, oriented X3, CN II-XII intact, other (Patient has some minimal decrease in sensation to light touch throughout the right side of her body. She definitely can detect touch.) Expanded Neurological exam: Present: protecting the airway Patient oriented to: Present: person, place, time Speech: Present: fluid speech Cranial nerves: EOM's Intact: Normal, Gag Reflex: Normal, Tongue Deviation: Normal, Facial Sensation: Normal Cerebellar function: Finger to Nose: Normal Motor strength exam: RUE: 5, LUE: 5, RLE: 5, LLE: 5 Eye Response: (4) open spontaneously Motor Response: (6) obeys commands Verbal Response: (5) oriented Skin exam: Present: warm, dry, intact, normal color. Absent: rash Stroke MDM - Lab Data Result diagrams: 05/10/19 01:10 05/10/19 01:10 Lab Results 05/10/19 05/10/19 05/10/19 Range/Units 01:10 01:10 01:10 WBC 7.2 (3.8-10.6) k/uL RBC 4.59 (3.80-5.40) m/uL Hgb 14.0 (11.4-16.0) gm/dL Hct 40.8 (34.0-46.0) % MCV 88.7 (80.0-100.0) fL MCH 30.6 (25.0-35.0) pg MCHC 34.5 (31.0-37.0) g/dL RDW 12.9 (11.5-15.5) % Plt Count 208 (150-450) k/uL Neutrophils % 56 % Lymphocytes % 29 % Monocytes % 9 % Eosinophils % 3 % Basophils % 1 % Neutrophils # 4.0 (1.3-7.7) k/uL Lymphocytes # 2.0 (1.0-4.8) k/uL Monocytes # 0.6 (0-1.0) k/uL Eosinophils # 0.2 (0-0.7) k/uL Basophils # 0.1 (0-0.2) k/uL PT 10.5 (9.0-12.0) sec INR 1.0 (<1.2) APTT 25.2 (22.0-30.0) sec Sodium 137 (137-145) mmol/L Potassium 4.5 (3.5-5.1) mmol/L Chloride 104 (98-107) mmol/L Carbon Dioxide 23 (22-30) mmol/L Anion Gap 10 mmol/L BUN 25 H (7-17) mg/dL Creatinine 0.79 (0.52-1.04) mg/dL Est GFR (CKD-EPI)AfAm 89 (>60 ml/min/1.73 sqM) Est GFR (CKD-EPI)NonAf 77 (>60 ml/min/1.73 sqM) Glucose 228 H (74-99) mg/dL Calcium 9.4 (8.4-10.2) mg/dL Total Bilirubin 1.0 (0.2-1.3) mg/dL AST 30 (14-36) U/L ALT 30 (9-52) U/L Alkaline Phosphatase 114 (38-126) U/L Troponin I (0.000-0.034) ng/mL Total Protein 6.6 (6.3-8.2) g/dL Albumin 3.6 (3.5-5.0) g/dL 05/10/19 Range/Units 01:10 WBC (3.8-10.6) k/uL RBC (3.80-5.40) m/uL Hgb (11.4-16.0) gm/dL Hct (34.0-46.0) % MCV (80.0-100.0) fL MCH (25.0-35.0) pg MCHC (31.0-37.0) g/dL RDW (11.5-15.5) % Plt Count (150-450) k/uL Neutrophils % % Lymphocytes % % Monocytes % % Eosinophils % % Basophils % % Neutrophils # (1.3-7.7) k/uL Lymphocytes # (1.0-4.8) k/uL Monocytes # (0-1.0) k/uL Eosinophils # (0-0.7) k/uL Basophils # (0-0.2) k/uL PT (9.0-12.0) sec INR (<1.2) APTT (22.0-30.0) sec Sodium (137-145) mmol/L Potassium (3.5-5.1) mmol/L Chloride (98-107) mmol/L Carbon Dioxide (22-30) mmol/L Anion Gap mmol/L BUN (7-17) mg/dL Creatinine (0.52-1.04) mg/dL Est GFR (CKD-EPI)AfAm (>60 ml/min/1.73 sqM) Est GFR (CKD-EPI)NonAf (>60 ml/min/1.73 sqM) Glucose (74-99) mg/dL Calcium (8.4-10.2) mg/dL Total Bilirubin (0.2-1.3) mg/dL AST (14-36) U/L ALT (9-52) U/L Alkaline Phosphatase (38-126) U/L Troponin I <0.012 (0.000-0.034) ng/mL Total Protein (6.3-8.2) g/dL Albumin (3.5-5.0) g/dL - EKG Data -: EKG Interpreted by Me EKG shows normal: sinus rhythm (Normal), axis (Normal), intervals (Normal), QRS complexes (Normal), ST-T waves (Normal) Rate: normal (Rate 70 bpm) Interpretation: normal EKG Past Medical History Past Medical History: Coronary Artery Disease (CAD), Cancer, Diabetes Mellitus, GERD/Reflux, Hypertension, Osteoarthritis (OA) Additional Past Medical History / Comment(s): SKIN CANCER , KIDNEY STONES, diarrhea for 6 weeks couple months ago, urinary leakage History of Any Multi-Drug Resistant Organisms: None Reported Past Surgical History: Adenoidectomy, Section, Cholecystectomy, Heart Catheterization, Heart Catheterization With Stent, Joint Replacement, Orthopedic Surgery, Tonsillectomy, Tubal Ligation Additional Past Surgical History / Comment(s): CATARACT BILATERAL EYE, TOTAL mallorie KNEE replacement, BILATERAL CARPAL TUNNEL RELEASE,C- SECTION X3, 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 Brother(s) Family Medical History: Cancer Additional Family Medical History / Comment(s): Pancreatic cancer, at age 62. Course Vital Signs 05/10/19 05/10/19 05/10/19 00:19 02:41 03:00 Temperature 97.5 F L 97.9 F 98 F Pulse Rate 71 71 65 Respiratory 18 18 18 Rate Blood Pressure 182/78 130/63 147/73 O2 Sat by Pulse 99 95 98 Oximetry 05/10/19 04:00 Temperature 98 F Pulse Rate 66 Respiratory 18 Rate Blood Pressure 140/72 O2 Sat by Pulse 97 Oximetry Disposition Clinical Impression: Paresthesia of right arm and leg Disposition: ADMITTED IP TO THIS HOSP Condition: Fair Is patient prescribed a controlled substance at d/c from ED?: No
[2019-05-10 01:21] LABS: Basophils # (A) 0.1 k/uL (0-0.2); Basophils % (A) 1 %; Eosinophils # (A) 0.2 k/uL (0-0.7); Eosinophils % (A) 3 %; HCT 40.8 % (34.0-46.0); Lymphocytes % (A) 29 %; MCH 30.6 pg (25.0-35.0); MCHC 34.5 g/dL (31.0-37.0); MCV 88.7 fL (80.0-100.0); Mean Platelet Volume 5.7; Monocytes # (A) 0.6 k/uL (0-1.0); Monocytes % (A) 9 %; Neutrophils % (A) 56 %; Platelet Count 208 k/uL (150-450); RBC 4.59 m/uL (3.80-5.40); RDW 12.9 % (11.5-15.5); WBC 7.2 k/uL (3.8-10.6)
[2019-05-10 01:30] LABS: Albumin 3.6 g/dL (3.5-5.0); Calcium 9.4 mg/dL (8.4-10.2); Total Protein 6.6 g/dL (6.3-8.2)
[2019-05-10 01:35] LABS: Partial Thromboplastin Time 25.2 sec (22.0-30.0); Prothrombin Time 10.5 sec (9.0-12.0)
--- NOTE | 2019-05-10 01:38 | CT ---
EXAMINATION TYPE: CT brain wo con for TPA DATE OF EXAM: 05/10/2019 COMPARISON: None HISTORY: Neuro defecit CT DLP: 1109.4 mGycm Automated exposure control for dose reduction was used. FINDINGS: Ventricles have normal size. There is no mass effect nor midline shift. There is no sign of intracran ial hemorrhage. Calvarium is intact. IMPRESSION: NEGATIVE HEAD CT SCAN.
[2019-05-10 01:45] LABS: Potassium 4.5 mmol/L (3.5-5.1)
--- NOTE | 2019-05-10 01:45 | XR ---
EXAMINATION TYPE: XR chest 2V DATE OF EXAM: 05/10/2019 COMPARISON: 01/31/2019 HISTORY: Altered mental status TECHNIQUE: Frontal and lateral views of the chest are obtained. FINDINGS: Heart and mediastinum are normal. Lungs are clear. Diaphragm is normal. Bony thorax is int act. There are chest leads. IMPRESSION: No cardiopulmonary disease. No change.
[2019-05-10] MEDS ORDERED: ASPIRIN 325 MG TAB PO STA (02:58)
[2019-05-10 06:22] LABS: Glucose,Whole Blood 152 mg/dL (75-99)
[2019-05-10] MEDS: INSULIN ASPART (NovoLOG) 100 UNIT/ML VIAL SQ SCH ×6 (06:34→20:50)
[2019-05-10] MEDS: SODIUM CHLORIDE 0.9% 1,000 ML IV SCH ×2 (06:36→23:56)
[2019-05-10] MEDS: DOCUSATE 100 MG CAP PO SCH ×3 (07:54→23:55)
[2019-05-10] MEDS ORDERED: FAMOTIDINE 20 MG TAB PO SCH (09:00)
[2019-05-10] MEDS: METOPROLOL SUCCINATE (ER) 50 MG TAB.ER.24H PO SCH (10:59)
[2019-05-10] MEDS: PIOGLITAZONE 30 MG TAB PO SCH (10:59)
[2019-05-10] MEDS: LISINOPRIL 10 MG TAB PO SCH (10:59)
[2019-05-10] MEDS: PANTOPRAZOLE 40 MG TABLET PO SCH (10:59)
[2019-05-10 12:47] LABS: Glucose,Whole Blood 156 mg/dL (75-99)
--- NOTE | 2019-05-10 13:30 | US ---
EXAMINATION TYPE: US carotid duplex BILAT DATE OF EXAM: 05/10/2019 COMPARISON: NONE CLINICAL HISTORY: possible stroke. Pt states right side numbness EXAM MEASUREMENTS: RIGHT: Peak Systolic Velocity (PSV) cm/sec ----- Right CCA: 75.5 ----- Right ICA: 97.4 ----- Right ECA: 75.5 ICA/CCA ratio: 1.3 RIGHT: End Diastole cm/sec ----- Right CCA: 14.2 ----- Right ICA: 9.6 ----- Right ECA: 69.4 LEFT: Peak Systolic Velocity (PSV) cm/sec ----- Left CCA: 91.1 ----- Left ICA: 124.0 ----- Left ECA: 83.2 ICA/CCA ratio: 1.4 LEFT: End Diastole cm/sec ----- Left CCA: 19.7 ----- Left ICA: 27.4 ----- Left ECA: 5.2 VERTEBRALS (direction of flow): Right Vertebral: Antegrade Left Vertebral: Antegrade Rhythm: Normal No significant stenosis seen IMPRESSION: 1. No diagnostic evidence of significant hemodynamic stenosis. 2. Mild atherosclerotic plaque. Criteria for Assigning % of Stenosis / Diameter reduction (Estimation based on the indirect measurements of the internal carotid artery velocities (ICA PSV). 1. Normal (no stenosis)=ICA PSV < 125 cm/s: ratio < 2.0: ICA EDV<40 cm/s. 2. Less than 50% stenosis=ICA PSV < 125 cm/s: ratio < 2.0: ICA EDV<40 cm/s. 3. 50 to 69% stenosis=ICA PSV of 125 to 230 cm/s: ration 2.0 ? 4.0: ICA EDV 40-100 cm/s. 4. Greater than 70% stenosis to near occlusion= ICA PSV > 230 cm/s: ratio > 4.0: ICA EDV > 100 cm/s. 5. Near occlusion= ICA PSV velocities may be low or undetectable: variable ratio and ICA EDV. 6. Total occlusion=unable to detect flow.
--- NOTE | 2019-05-10 16:21 | P.HPIM ---
History of Present Illness A pleasant 68-year-old female was admitted for right-sided facial numbness and tingling and numbness in the right of the body. This happened while watching the lesion patient's symptoms resolved within about few minutes. Patient had on and off for the symptoms. Patient denied any weakness denied any lightheadedness headache photophobia. Patient denied any history of migraine. Patient was evaluated by neurology and the patient did state 325 mg of aspirin denied any history of atrial fibrillation does have history of coronary artery disease and the patient is on high-dose statin already and LDL is also being obtained along with the MRI and carotid Doppler. Review of Systems REVIEW OF SYSTEMS: CONSTITUTIONAL: No fever, no malaise, no fatigue. HEENT: No recent visual problems or hearing problems. Denied any sore throat. CARDIOVASCULAR: No chest pain, orthopnea, PND, no palpitations, no syncope. PULMONARY: No shortness of breath, no cough, no hemoptysis. GASTROINTESTINAL: No diarrhea, no nausea, no vomiting, no abdominal pain. NEUROLOGICAL: No headaches, no weakness, HEMATOLOGICAL: Denies any bleeding or petechiae. GENITOURINARY: Denies any burning micturition, frequency, or urgency. MUSCULOSKELETAL/RHEUMATOLOGICAL: Denies any joint pain, swelling, or any muscle pain. ENDOCRINE: Denies any polyuria or polydipsia. The rest of the 14-point review of systems is negative. Past Medical History Past Medical History: Coronary Artery Disease (CAD), Cancer, Diabetes Mellitus, GERD/Reflux, Hypertension, Osteoarthritis (OA) Additional Past Medical History / Comment(s): SKIN CANCER , KIDNEY STONES, diarrhea for 6 weeks couple months ago, urinary leakage History of Any Multi-Drug Resistant Organisms: None Reported Past Surgical History: Adenoidectomy, Section, Cholecystectomy, Heart Catheterization, Heart Catheterization With Stent, Joint Replacement, Orthopedic Surgery, Tonsillectomy, Tubal Ligation Additional Past Surgical History / Comment(s): CATARACT BILATERAL EYE, TOTAL mallorie KNEE replacement, BILATERAL CARPAL TUNNEL RELEASE,C- SECTION X3, 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 Brother(s) Family Medical History: Cancer Additional Family Medical History / Comment(s): Pancreatic cancer, at age 62. Medications and Allergies Home Medications Medication Instructions Recorded Confirmed Type Aspirin 162 mg PO BID 07/21/14 05/10/19 History Atorvastatin [Lipitor] 80 mg PO W/SUPPER 07/21/14 05/10/19 History Insulin Glargine,Hum.rec.anlog 25 units SQ HS 07/21/14 05/10/19 History [Lantus Solostar] Metoprolol Succinate [Toprol XL] 50 mg PO QAM 09/27/15 05/10/19 History Cholecalciferol [Vitamin D3 (25 1,000 unit PO BID 10/28/18 05/10/19 History Mcg = 1000 Iu)] Insulin Aspart [NovoLOG Flexpen] 10 units SQ TID-W/MEALS 10/28/18 05/10/19 History Omeprazole [PriLOSEC] 20 mg PO AC-BRKFST 10/28/18 05/10/19 History Pioglitazone [Actos] 30 mg PO DAILY 10/28/18 05/10/19 History Bifidobacterium Infantis [Align] 4 mg PO DAILY 01/31/19 05/10/19 History Calcium Carbonate [Calcium] 600 mg PO BID 01/31/19 05/10/19 History Insulin Aspart [NovoLOG Flexpen] See Protocol SQ AC-TID PRN 01/31/19 05/10/19 History Benazepril HCl 10 mg PO DAILY 05/10/19 05/10/19 History Isosorbide Mononitrate ER [Imdur] 30 mg PO W/SUPPER 05/10/19 05/10/19 History Allergies Allergy/AdvReac Type Severity Reaction Status Date / Time No Known Allergies Allergy Verified 05/10/19 07:33 Physical Exam Vitals: Vital Signs Temp Pulse Pulse Resp BP BP Pulse Ox 05/10/19 11:00 97.8 F 69 18 175/75 97 05/10/19 08:00 97.5 F L 68 18 187/77 98 05/10/19 07:50 97.5 F L 68 18 187/77 98 05/10/19 05:20 98 F 64 18 180/81 99 05/10/19 04:00 98 F 66 18 140/72 97 05/10/19 03:00 98 F 65 18 147/73 98 05/10/19 02:41 97.9 F 71 18 130/63 95 05/10/19 00:19 97.5 F L 71 18 182/78 99 Intake and Output 05/10/19 05/10/19 05/10/19 06:59 14:59 22:59 Intake Total 1320 Balance 1320 Intake: Intake, IV Titration 160 Amount Sodium Chloride 0.9% 1, 160 000 ml @ 20 mls/hr IV . Q24H [facility] Rx#:[id number] Oral 1160 Other: # Voids 0 2 Weight 110.7 kg PHYSICAL EXAMINATION: GENERAL: The patient is alert and oriented x3, not in any acute distress. Well developed, well nourished. HEENT: Pupils are round and equally reacting to light. EOMI. No scleral icterus. No conjunctival pallor. Normocephalic, atraumatic. No pharyngeal erythema. No thyromegaly. CARDIOVASCULAR: S1 and S2 present. No murmurs, rubs, or gallops. PULMONARY: Chest is clear to auscultation, no wheezing or crackles. ABDOMEN: Soft, nontender, nondistended, normoactive bowel sounds. No palpable organomegaly. MUSCULOSKELETAL: No joint swelling or deformity. EXTREMITIES: No cyanosis, clubbing, or pedal edema. NEUROLOGICAL: Gross neurological examination did not reveal any focal deficits. SKIN: No rashes. 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 Carotid Doppler will obtain, MRI will be obtained MRI may not show any significant abnormality as patient has TIA rather than stroke. Continue with antiplatelet therapy and statin -Coronary artery disease with stents in the past. An-type 2 diabetes mellitus Gastroesophageal reflux disease -Hypertension
[2019-05-10 17:09] LABS: Glucose,Whole Blood 108 mg/dL (75-99)
[2019-05-10] MEDS ORDERED: ATORVASTATIN 80 MG TAB PO SCH (17:30)
[2019-05-10] MEDS ORDERED: ISOSORBIDE MONONITRATE ER 30 MG TAB.ER.24H PO SCH (17:30)
[2019-05-10 17:37] LABS: Hemoglobin A1C 6.8 % (4.0-6.0)
--- NOTE | 2019-05-10 17:38 | P.CNNES ---
History of Present Illness Consult date: 05/10/19 Reason for Consult: Stroke vs TIA Chief complaint: R face and arm numbness History of Present Illness: HISTORY OF PRESENT ILLNESS: Thank you for allowing me to evaluate Ms. Vita Romero. Ms. Romero is a 68-year-old woman with past medical history of coronary artery disease, diabetes, GERD, hypertension, skin cancer, kidney stones, who presented to [facility] for right-sided face and body tingling/numbness. Her symptoms started around 10 PM last night while she was watching TV. Patient states that she still has some numbness in her R lower face and R lateral forearm area. Patient thinks she may have some numbness in her RLE, but patient also with history of sciatica so she can't tell if it was from her sciatica. Patient denies ever having similar symptoms. Denies recent sickness, headache, nausea, vomiting, double/blurry vision, weakness, CP, SOB, diarrhea or constipation. PAST MEDICAL HISTORY: Coronary artery disease, diabetes, GERD, hypertension, skin cancer, kidney stones PAST SURGICAL HISTORY: Adenoidectomy, , cholecystectomy, heart catheterization with stent, tonsillectomy, tubal ligation, bilateral eye cataract surgery, total bilateral knee replacement, bilateral carpal tunnel release, HOME MEDICATIONS: Insulin, atorvastatin, aspirin, metoprolol, pioglitazone, omeprazole, calcium, benazepril, Imdur ALLERGIES: NKDA SOCIAL HISTORY: Never smoker FAMILY HISTORY: Mother with Alzheimer's disease. Father at 48 of unknown etiology. Brother with pancreatic cancer. Son had DVT REVIEW OF SYSTEMS: The 14 systems are reviewed and no additional points are identified compared to the review of systems documented history and physical PHYSICAL EXAMINATION: VITAL SIGNS: T 97.5 HR 68 RR 18 BP 187/77 O2 sat 98% on RA GEN.: NAD, pleasant and cooperative HEENT: NCAT, sclera without icterus NECK: Supple, no carotid bruit SKIN AND EXTREMITIES: Warm to touch, no edema NEURO: MENTAL STATUS: Patient alert and oriented to self, place, time. Able to name the current president. Speech fluent, able to name and repeat, following all commands readily. No right and left disorientation, extinction to double simultaneous stimulation, finger agnosia, neglect. CRANIAL NERVES II THROUGH XII: II: Pupils are equal and reactive to light symmetrically. No afferent pupillary defect. Visual jerome are intact. III, IV, : No ptosis. Extraocular movements full. No nystagmus. V: Mild decrease in sensation in R V2 and V3 area. VII. No clear facial asymmetry. VIII: Hearing intact to finger rub bilaterally. IX, X: Symmetric palate elevation. XI: Shoul raymond shrug intact. XII: Tongue midline without fasciculation or atrophy. MOTOR: Normal bulk/tone. No pronator drift or tremor. Strength is 5/5 throughout all 4 extremities. SENSORY: Intact to light touch, temperature, pinprick in all 4 extremities. Romberg is negative. REFLEXES: 2+ throughout. Toes are downgoing. No clonus. Dayan's is absent COORDINATION: Finger to nose and heel to patterson intact. No dysmetria. Rapid alternating movements with good speed and accuracy. GAIT: Narrow-based and stable. Able to toe/heel/tandem walk DIAGNOSTIC TESTING: LABORATORY: WBC 7.2 hemoglobin 14.0 platelet 208 PT 10.5 INR 1.0 sodium 137 potassium 4.5 chloride 104 bicarb 23 BUN 25 creatinine 0.79 glucose 228 AST 30 ALT 30 alk phos 114 troponin <0.012 IMAGING: CT head without contrast 05/10/2019: Negative CT. EKG 05/10/2019: Normal sinus rhythm Transthoracic Echocardiogram 02/01/19: SR. EF >55%. RV/LV/LA/RA sizes are normal ASSESSMENT: 68-year-old woman with past medical history of coronary artery disease, diabetes, GERD, hypertension, skin cancer, kidney stones, who presented to [facility] for right-sided face and body tingling/numbness. MRI brain w/o contrast with no acute intracranial finding. There is a small area in the R parietal lobe on DWI and Flair, most likely T2 shine through. Carotid Doppler also with no hemodynamically significant stenosis. Patient most likely had a TIA, another possibility is patient's high blood glucose level 273. RECOMMENDATIONS: 1. ASA 81mg qday and Plavix 75mg qday (dual antiplatelet therapy for 3 weeks per POINT trial, then Aspirin 81mg qday only) 2. Atorvastatin 80mg qhs 3. Labs: A1C, TSH 1.830, LDL 48 4. Discussed with patient about stroke prevention guidelines. Medication compliance, hypertension/diabetes control, lifestyle changes including no smoking, drinking in moderation, losing weight, exercising, eating healthier 5. Neurology will sign off at this time. Patient needs to follow up with neurologist as outpatient with her 1-2 weeks of discharge Past Medical History Past Medical History: Coronary Artery Disease (CAD), Cancer, Diabetes Mellitus, GERD/Reflux, Hypertension, Osteoarthritis (OA) Additional Past Medical History / Comment(s): SKIN CANCER , KIDNEY STONES, diarrhea for 6 weeks couple months ago, urinary leakage History of Any Multi-Drug Resistant Organisms: None Reported Past Surgical History: Adenoidectomy, Section, Cholecystectomy, Heart Catheterization, Heart Catheterization With Stent, Joint Replacement, Orthopedic Surgery, Tonsillectomy, Tubal Ligation Additional Past Surgical History / Comment(s): CATARACT BILATERAL EYE, TOTAL mallorie KNEE replacement, BILATERAL CARPAL TUNNEL RELEASE,C- SECTION X3, 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 Brother(s) Family Medical History: Cancer Additional Family Medical History / Comment(s): Pancreatic cancer, at age 62. Medications and Allergies Home Medications Medication Instructions Recorded Confirmed Type Aspirin 162 mg PO BID 07/21/14 05/10/19 History Atorvastatin [Lipitor] 80 mg PO W/SUPPER 07/21/14 05/10/19 History Insulin Glargine,Hum.rec.anlog 25 units SQ HS 07/21/14 05/10/19 History [Lantus Solostar] Metoprolol Succinate [Toprol XL] 50 mg PO QAM 09/27/15 05/10/19 History Cholecalciferol [Vitamin D3 (25 1,000 unit PO BID 10/28/18 05/10/19 History Mcg = 1000 Iu)] Insulin Aspart [NovoLOG Flexpen] 10 units SQ TID-W/MEALS 10/28/18 05/10/19 History Omeprazole [PriLOSEC] 20 mg PO AC-BRKFST 10/28/18 05/10/19 History Pioglitazone [Actos] 30 mg PO DAILY 10/28/18 05/10/19 History Bifidobacterium Infantis [Align] 4 mg PO DAILY 01/31/19 05/10/19 History Calcium Carbonate [Calcium] 600 mg PO BID 01/31/19 05/10/19 History Insulin Aspart [NovoLOG Flexpen] See Protocol SQ AC-TID PRN 01/31/19 05/10/19 History Benazepril HCl 10 mg PO DAILY 05/10/19 05/10/19 History Isosorbide Mononitrate ER [Imdur] 30 mg PO W/SUPPER 05/10/19 05/10/19 History Allergies Allergy/AdvReac Type Severity Reaction Status Date / Time No Known Allergies Allergy Verified 05/10/19 07:33 Physical Examination - Vital Signs Vital Signs: Vital Signs Temp Pulse Pulse Resp BP BP Pulse Ox 05/10/19 08:00 97.5 F L 68 18 187/77 98 05/10/19 07:50 97.5 F L 68 18 187/77 98 05/10/19 05:20 98 F 64 18 180/81 99 05/10/19 04:00 98 F 66 18 140/72 97 05/10/19 03:00 98 F 65 18 147/73 98 05/10/19 02:41 97.9 F 71 18 130/63 95 05/10/19 00:19 97.5 F L 71 18 182/78 99 Intake and Output 05/09/19 05/10/19 05/10/19 22:59 06:59 14:59 Other: # Voids 0 Weight 110.7 kg Results - Laboratory Findings CBC and BMP: 05/10/19 01:10 05/10/19 01:10 Abnormal Lab Findings: Abnormal Labs 05/10/19 05/10/19 01:10 06:21 BUN 25 H Glucose 228 H POC Glucose (mg/dL) 152 H
--- NOTE | 2019-05-10 17:46 | MR ---
EXAMINATION TYPE: MR brain wo con DATE OF EXAM: 05/10/2019 COMPARISON: 05/10/2019 CT HISTORY: 68-year-old female Right sided facial and arm numbness TECHNIQUE: Multiplanar, multisequence images of the brain and brainstem were acquired without IV con trast. Diffusion weighted imaging is performed. FINDINGS: DWI sequence shows some T2 shine through in the right periatrial white matter. No evidence for acute infarction, hemorrhage, mass, mass effect, midline shift, herniation, effacemen t of basal cisterns, or extra-axial fluid collection. Mild ventricular prominence secondary to central cerebral atrophy. Dominant right vertebral artery. Major intracranial flow voids are intact. T2/FLAIR weighted sequences show mild scattered burden of white matter change particularly in the sub cortical and periventricular region of both cerebral hemispheres. Approximately 7 foci on the left an d 3 foci in the right. Empty sella is noted with corresponding enlargement of the sella turcica. Otherwise, midline structur es demonstrate normal morphology. The craniocervical junction is normal. Scattered mild mucosal thickening within the ethmoid air cells. The globes are intact. IMPRESSION: 1. No acute intracranial abnormality seen. Focal bright signal on DWI within the right periatrial whi te matter corresponds to T2 shine through when correlating with ADC map. 2. Mild central cerebral atrophy. 3. Scattered nonspecific T2 bright white matter change nonspecific, likely relating to mild changes o f chronic small vessel ischemic disease. 4. Incidental empty sella.
[2019-05-10 20:50] LABS: Glucose,Whole Blood 99 mg/dL (75-99)
[2019-05-10] MEDS ORDERED: INSULIN DETEMIR (LEVEMIR) 100 UNIT/ML SYR SQ SCH (21:00)
[2019-05-10] MEDS: CHOLECALCIFEROL 1,000 UNIT TAB PO SCH (22:26)
[2019-05-10] MEDS: CALCIUM CARBONATE 500 MG CHEWABLE PO SCH (22:26)
[2019-05-11] MEDS ORDERED: ASPIRIN 325 MG TAB PO SCH ×2 (03:01→09:00)
[2019-05-11] MEDS: PANTOPRAZOLE 40 MG TABLET PO SCH (06:49)
[2019-05-11 07:26] LABS: Glucose,Whole Blood 86 mg/dL (75-99)
[2019-05-11] MEDS: INSULIN ASPART (NovoLOG) 100 UNIT/ML VIAL SQ SCH ×4 (07:31→12:52)
[2019-05-11] MEDS: DOCUSATE 100 MG CAP PO SCH (07:55)
[2019-05-11] MEDS: METOPROLOL SUCCINATE (ER) 50 MG TAB.ER.24H PO SCH (07:59)
[2019-05-11] MEDS: PIOGLITAZONE 30 MG TAB PO SCH (07:59)
[2019-05-11] MEDS: CHOLECALCIFEROL 1,000 UNIT TAB PO SCH (07:59)
[2019-05-11] MEDS: CALCIUM CARBONATE 500 MG CHEWABLE PO SCH (07:59)
[2019-05-11] MEDS: LISINOPRIL 10 MG TAB PO SCH (07:59)
[2019-05-11 11:09] VITALS: BP 124/75; PULSE 63; RESP 18; TEMP 97.8
[2019-05-11 12:31] LABS: Glucose,Whole Blood 96 mg/dL (75-99)
--- NOTE | 2019-05-11 12:32 | P.PN ---
Subjective 68-year-old admitted with the tingling and numbness of the right side of the body and rates of the face appears to have pure sensory TIA MRI is essentially not significant. Patient is cleared by neurology the recommending addition of Plavix to his her aspirin for about 3 weeks. Patient had a carotid Doppler which did not show any significant disease that needs intervention at this time. Patient will be discharged today. Patient is already on high-dose statin. Her symptoms presently resolved. PHYSICAL EXAMINATION: GENERAL: The patient is alert and oriented x3, not in any acute distress. Well developed, well nourished. HEENT: Pupils are round and equally reacting to light. EOMI. No scleral icterus. No conjunctival pallor. Normocephalic, atraumatic. No pharyngeal erythema. No thyromegaly. CARDIOVASCULAR: S1 and S2 present. No murmurs, rubs, or gallops. PULMONARY: Chest is clear to auscultation, no wheezing or crackles. ABDOMEN: Soft, nontender, nondistended, normoactive bowel sounds. No palpable organomegaly. MUSCULOSKELETAL: No joint swelling or deformity. EXTREMITIES: No cyanosis, clubbing, or pedal edema. NEUROLOGICAL: Gross neurological examination did not reveal any focal deficits. SKIN: No rashes. please refer to my HPI for further discussion of hospitalization course and medical problems that were addressed. Objective - Vital Signs Vital signs: Vital Signs Temp 97.8 F 05/11/19 07:45 Pulse 63 05/11/19 07:45 Resp 18 05/11/19 07:45 BP 124/75 05/11/19 07:45 Pulse Ox 99 05/11/19 07:45 Intake & Output 05/10/19 05/11/19 05/11/19 18:59 06:59 18:59 Intake Total 1560 120 358 Balance 1560 120 358 Weight 110 kg Intake: Intake, IV Titration 160 Amount Sodium Chloride 0.9% 1, 160 000 ml @ 20 mls/hr IV . Q24H [facility] Rx#:[id number] Oral 1400 120 358 Other: # Voids 1 2 - Labs CBC & Chem 7: 05/10/19 01:10 05/10/19 01:10 Labs: Abnormal Lab Results - Last 24 Hours (Table) 05/10/19 05/10/19 05/10/19 Range/Units 01:10 12:41 17:03 POC Glucose (mg/dL) 156 H 108 H (75-99) mg/dL Hemoglobin A1c 6.8 H (4.0-6.0) %
== END 2019-05-11 13:04 | disposition home or self-care (01) ==
LOC: EC 00:17 → 3SCARD 03:01
PROVIDERS: ADMIT Hospitalist; ATTEND Hospitalist
DX: R20.2 Paresthesia of skin (principal); R20.0 Anesthesia of skin; I25.10 Atherosclerotic heart disease of native coronary artery without angina pectoris; I10 Essential (primary) hypertension; E11.65 Type 2 diabetes mellitus with hyperglycemia; K21.9 Gastro-esophageal reflux disease without esophagitis; M19.90 Unspecified osteoarthritis, unspecified site; M54.31 Sciatica, right side; R32 Unspecified urinary incontinence; Z79.82 Long term (current) use of aspirin; Z79.4 Long term (current) use of insulin; Z79.899 Other long term (current) drug therapy; Z96.653 Presence of artificial knee joint, bilateral; Z90.49 Acquired absence of other specified parts of digestive tract; Z95.5 Presence of coronary angioplasty implant and graft; Z98.42 Cataract extraction status, left eye; Z98.41 Cataract extraction status, right eye; Z98.51 Tubal ligation status; Z82.0 Family history of epilepsy and other diseases of the nervous system; Z80.0 Family history of malignant neoplasm of digestive organs; Z82.49 Family history of ischemic heart disease and other diseases of the circulatory system
CPT/HCPCS: 99285; 36415; 93005; 97161; 97165; 80061; 80053; 84443; 84484; 85025; 85610; 85730; 83036; 71046; 93880; 70450; 70551; G0378 ×2

== ENCOUNTER 2019-06-02 22:46 | Observation (INO) | payer MEDICARE ==
[2019-06-02] MEDS ORDERED: SODIUM CHLORIDE 0.9% 1,000 ML IV STA (22:58)
[2019-06-02 22:59] LABS: Glucose,Whole Blood 162 mg/dL (75-99)
--- NOTE | 2019-06-02 23:03 | ED ---
Neuro HPI - General Chief Complaint: Neuro Symptoms/Deficit Stated Complaint: R Sided Numbness Time Seen by Provider: 06/02/19 22:58 Source: patient Mode of arrival: ambulatory Limitations: no limitations - History of Present Illness Is the patient presenting with stroke symptoms?: No Initial Comments: Vita is a 8-year-old female with a history of diabetes, hypertension and a recent TIA approximately 2 weeks ago. Patient returns the emergency department today by private vehicle for reevaluation of TIA-like symptoms. Patient reports that 2 weeks ago when she was evaluated she was experiencing some vague numbness in her right arm, she came to the emergency department had a negative workup was admitted the hospital had a negative MRI and was discharged home on Plavix and continued her home statin therapy. Patient states she's been compliant with her medications. She states around 7 PM this evening she felt that her entire right arm was going numb and then felt numbness on the right side of her body including her right leg. Patient had a vague headache upon initiation of the symptoms with the headache resolved. Patient denies any facial droop, difficulty with speech or swallowing, she denies any drooling. She denies any vision changes. reports that she can feel her arm and leg she has no weaknesses in them but the feeling seems dulled. She reports a sensation just feels different than the left side of her body. - Related Data Home Medications: Home Medications Medication Instructions Recorded Confirmed Atorvastatin [Lipitor] 80 mg PO AC-SUPPER 07/21/14 06/02/19 Insulin Glargine,Hum.rec.anlog 25 units SQ HS 07/21/14 06/02/19 [Lantus Solostar] Metoprolol Succinate [Toprol XL] 50 mg PO DAILY 09/27/15 06/02/19 Cholecalciferol [Vitamin D3 (25 2,500 unit PO BID 10/28/18 06/02/19 Mcg = 1000 Iu)] Insulin Aspart [NovoLOG Flexpen] 10 units SQ TID-W/MEALS 10/28/18 06/02/19 Omeprazole [PriLOSEC] 20 mg PO AC-BRKFST 10/28/18 06/02/19 Pioglitazone [Actos] 30 mg PO DAILY 10/28/18 06/02/19 Bifidobacterium Infantis [Align] 4 mg PO DAILY 01/31/19 06/02/19 Calcium Carbonate [Calcium] 600 mg PO BID 01/31/19 06/02/19 Insulin Aspart [NovoLOG Flexpen] See Protocol SQ AC-TID PRN 01/31/19 06/02/19 Isosorbide Mononitrate ER [Imdur] 30 mg PO W/SUPPER 05/10/19 06/02/19 Benazepril/Hydrochlorothiazide 0.5 tab PO DAILY 06/02/19 06/02/19 [Benazepril-Hctz 20-12.5 mg Tab] Isosorbide 30mg(Unknown) 1 tab PO AC-SUPPER 06/02/19 06/02/19 Previous Rx's Medication Instructions Recorded Clopidogrel Bisulfate [Plavix] 75 mg PO DAILY #30 tab 05/11/19 Allergies/Adverse Reactions: Allergies Allergy/AdvReac Type Severity Reaction Status Date / Time No Known Allergies Allergy Verified 06/02/19 22:47 Review of Systems ROS Statement: Those systems with pertinent positive or pertinent negative responses have been documented in the HPI. ROS Other: All systems not noted in ROS Statement are negative. General Exam - General Exam Comments Initial Comments: Physical Exam GENERAL: Patient is well-developed and well-nourished. Patient is nontoxic and well-hydrated and is in no distress. HENT: Normocephalic, Atraumatic. EYES: PERRL, EOMI PULMONARY: Unlabored respirations. No audible rales rhonchi or wheezing was noted. CARDIOVASCULAR: There is a regular rate and rhythm without any murmurs gallops or rubs. ABDOMEN: Soft and nontender with normal bowel sounds. SKIN: Skin is clear with no lesions or rashes and otherwise unremarkable. : Deferred NEUROLOGIC: Patient is alert and oriented x3. Moving all extremities spontaneously Cranial nerves II through XII are grossly intact Normal strength in bilateral upper and lower extremities Normal gait Normal coordination no ataxia Subjective decreased sensation in right upper and lower extremity MUSCULOSKELETAL: Normal extremities with adequate strength and full range of motion. No lower extremity swelling or edema. No calf tenderness. PSYCHIATRIC: Normal psychiatric evaluation. Limitations: no limitations Stroke MDM - Lab Data Result diagrams: 06/02/19 23:00 06/02/19 23:00 Lab Results 06/02/19 06/02/19 06/02/19 Range/Units 22:57 23:00 23:00 WBC 8.5 (3.8-10.6) k/uL RBC 4.70 (3.80-5.40) m/uL Hgb 14.3 (11.4-16.0) gm/dL Hct 41.8 (34.0-46.0) % MCV 89.0 (80.0-100.0) fL MCH 30.3 (25.0-35.0) pg MCHC 34.1 (31.0-37.0) g/dL RDW 13.0 (11.5-15.5) % Plt Count 234 (150-450) k/uL Neutrophils % 52 % Lymphocytes % 32 % Monocytes % 8 % Eosinophils % 4 % Basophils % 2 % Neutrophils # 4.4 (1.3-7.7) k/uL Lymphocytes # 2.8 (1.0-4.8) k/uL Monocytes # 0.7 (0-1.0) k/uL Eosinophils # 0.3 (0-0.7) k/uL Basophils # 0.2 (0-0.2) k/uL PT (9.0-12.0) sec INR (<1.2) APTT (22.0-30.0) sec Sodium 138 (137-145) mmol/L Potassium 4.3 (3.5-5.1) mmol/L Chloride 107 (98-107) mmol/L Carbon Dioxide 24 (22-30) mmol/L Anion Gap 7 mmol/L BUN 25 H (7-17) mg/dL Creatinine 0.73 (0.52-1.04) mg/dL Est GFR (CKD-EPI)AfAm >90 (>60 ml/min/1.73 sqM) Est GFR (CKD-EPI)NonAf 85 (>60 ml/min/1.73 sqM) Glucose 165 H (74-99) mg/dL POC Glucose (mg/dL) 162 H (75-99) mg/dL POC Glu Surgical Scheduler ID Cullen Allan Calcium 9.9 (8.4-10.2) mg/dL Total Bilirubin 1.3 (0.2-1.3) mg/dL AST 31 (14-36) U/L ALT 31 (9-52) U/L Alkaline Phosphatase 105 (38-126) U/L Troponin I (0.000-0.034) ng/mL Total Protein 7.2 (6.3-8.2) g/dL Albumin 3.9 (3.5-5.0) g/dL Urine Color Urine Appearance (Clear) Urine pH (5.0-8.0) Ur Specific [place] (1.001-1.035) Urine Protein (Negative) Urine Glucose (UA) (Negative) Urine Ketones (Negative) Urine Blood (Negative) Urine Nitrite (Negative) Urine Bilirubin (Negative) Urine Urobilinogen (<2.0) mg/dL Ur Leukocyte Esterase (Negative) 06/02/19 06/02/19 06/03/19 Range/Units 23:00 23:00 00:13 WBC (3.8-10.6) k/uL RBC (3.80-5.40) m/uL Hgb (11.4-16.0) gm/dL Hct (34.0-46.0) % MCV (80.0-100.0) fL MCH (25.0-35.0) pg MCHC (31.0-37.0) g/dL RDW (11.5-15.5) % Plt Count (150-450) k/uL Neutrophils % % Lymphocytes % % Monocytes % % Eosinophils % % Basophils % % Neutrophils # (1.3-7.7) k/uL Lymphocytes # (1.0-4.8) k/uL Monocytes # (0-1.0) k/uL Eosinophils # (0-0.7) k/uL Basophils # (0-0.2) k/uL PT 10.3 (9.0-12.0) sec INR 1.0 (<1.2) APTT 26.6 (22.0-30.0) sec Sodium (137-145) mmol/L Potassium (3.5-5.1) mmol/L Chloride (98-107) mmol/L Carbon Dioxide (22-30) mmol/L Anion Gap mmol/L BUN (7-17) mg/dL Creatinine (0.52-1.04) mg/dL Est GFR (CKD-EPI)AfAm (>60 ml/min/1.73 sqM) Est GFR (CKD-EPI)NonAf (>60 ml/min/1.73 sqM) Glucose (74-99) mg/dL POC Glucose (mg/dL) (75-99) mg/dL POC Glu Surgical Scheduler ID Calcium (8.4-10.2) mg/dL Total Bilirubin (0.2-1.3) mg/dL AST (14-36) U/L ALT (9-52) U/L Alkaline Phosphatase (38-126) U/L Troponin I <0.012 (0.000-0.034) ng/mL Total Protein (6.3-8.2) g/dL Albumin (3.5-5.0) g/dL Urine Color Light Yellow Urine Appearance Clear (Clear) Urine pH 5.5 (5.0-8.0) Ur Specific [place] 1.007 (1.001-1.035) Urine Protein Negative (Negative) Urine Glucose (UA) Negative (Negative) Urine Ketones Negative (Negative) Urine Blood Negative (Negative) Urine Nitrite Negative (Negative) Urine Bilirubin Negative (Negative) Urine Urobilinogen <2.0 (<2.0) mg/dL Ur Leukocyte Esterase Negative (Negative) - NIH Stroke Scale 1a. Level of Consciousness: (0) alert 1b. LOC Questions: (0) answers correctly 1c. LOC Commands: (0) performs tasks correctly 2. Best Gaze: (0) normal 3. Visual: (0) no visual loss 4. Facial Palsy: (0) normal symmetrical movement 5a. Motor Arm Left: (0) no drift 5b. Motor Arm Right: (0) no drift 6a. Motor Leg Left: (0) no drift 6b. Motor Leg Right: (0) no drift 7. Limb Ataxia: (0) absent 8. Sensory: (1) mild/moderate sensory loss 9. Best Language: (0) no aphasia 10. Dysarthria: (0) normal 11. Extinction/Inattention: (0) no abnormality - Medical Decision Making Patient was seen and evaluated immediately upon arrival to the emergency department, patient with recurrent subjective numbness of the right upper extremity with no objective findings. NIH is 1 for subjective findings. This is a recurrence of symptoms that happened 2 weeks ago and had a negative workup at that time. Patient's been compliant with medications. Symptoms been present for 4 hours at the time of arrival. Given the very low NIH in no objective findings I would not consider TPA in this patient therefore a code stroke was not called. Labs and imaging were obtained, labs and imaging were unremarkable. Signed patient be readmitted to the hospital for further observation and evaluation by neurology. - EKG Data -: EKG Interpreted by Me EKG shows normal: sinus rhythm Rate: normal When compared to previous EKG there are: no significant change Interpretation: no acute changes EKG was obtained as part of the stroke workup, EKG was obtained at 2259, rate is 81 rhythm is sinus there is a normal axis, there are normal intervals, SC 190, care assigned to come QTc is 434. There are no acute ST elevations or depressions there is no evidence of acute ischemia or infarction. There is no evidence of arrhythmia. 06/03/19 01:01 Past Medical History Past Medical History: Coronary Artery Disease (CAD), Cancer, CVA/TIA, Diabetes Mellitus, GERD/Reflux, Hypertension, Osteoarthritis (OA) Additional Past Medical History / Comment(s): SKIN CANCER , KIDNEY STONES, diarrhea for 6 weeks couple months ago, urinary leakage History of Any Multi-Drug Resistant Organisms: None Reported Past Surgical History: Adenoidectomy, Section, Cholecystectomy, Heart Catheterization, Heart Catheterization With Stent, Joint Replacement, Orthopedic Surgery, Tonsillectomy, Tubal Ligation Additional Past Surgical History / Comment(s): CATARACT BILATERAL EYE, TOTAL mallorie KNEE replacement, BILATERAL CARPAL TUNNEL RELEASE,C- SECTION X3, 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 Brother(s) Family Medical History: Cancer Additional Family Medical History / Comment(s): Pancreatic cancer, at age 62. Course Vital Signs 06/02/19 06/02/19 06/02/19 22:48 23:00 23:37 Temperature 97.9 F Pulse Rate 78 72 73 Respiratory 16 18 18 Rate Blood Pressure 186/84 190/82 166/71 O2 Sat by Pulse 97 98 97 Oximetry Disposition Clinical Impression: Transient cerebral ischemia Disposition: ADMITTED IP TO THIS HOSP Condition: Stable Is patient prescribed a controlled substance at d/c from ED?: No
[2019-06-02 23:10] LABS: Basophils # (A) 0.2 k/uL (0-0.2); Basophils % (A) 2 %; Eosinophils # (A) 0.3 k/uL (0-0.7); Eosinophils % (A) 4 %; HCT 41.8 % (34.0-46.0); HGB 14.3 gm/dL (11.4-16.0); Lymphocytes # (A) 2.8 k/uL (1.0-4.8); Lymphocytes % (A) 32 %; MCH 30.3 pg (25.0-35.0); MCHC 34.1 g/dL (31.0-37.0); Monocytes # (A) 0.7 k/uL (0-1.0); Monocytes % (A) 8 %; Neutrophils # (A) 4.4 k/uL (1.3-7.7); Neutrophils % (A) 52 %; Platelet Count 234 k/uL (150-450); WBC 8.5 k/uL (3.8-10.6)
[2019-06-02 23:18] LABS: Partial Thromboplastin Time 26.6 sec (22.0-30.0); Prothrombin Time 10.3 sec (9.0-12.0)
[2019-06-02 23:22] LABS: ALT 31 U/L (9-52); AST 31 U/L (14-36); African American GFR (CKD) >90 (>60 ml/min/1.73 sqM); Albumin 3.9 g/dL (3.5-5.0); Alkaline Phosphatase 105 U/L (38-126); Anion Gap 7 mmol/L; Blood Urea Nitrogen 25 mg/dL (7-17); Calcium 9.9 mg/dL (8.4-10.2); Carbon Dioxide 24 mmol/L (22-30); Chloride 107 mmol/L (98-107); Glucose 165 mg/dL (74-99); Non-African American GFR(CKD) 85 (>60 ml/min/1.73 sqM); Potassium 4.3 mmol/L (3.5-5.1); Sodium 138 mmol/L (137-145); Total Bilirubin 1.3 mg/dL (0.2-1.3); Total Protein 7.2 g/dL (6.3-8.2)
--- NOTE | 2019-06-02 23:22 | XR ---
EXAMINATION TYPE: XR chest 2V DATE OF EXAM: 06/02/2019 COMPARISON: 05/10/2019 HISTORY: Neuro deficits. Weakness. TECHNIQUE: Frontal and lateral views of the chest are obtained. FINDINGS: There is no heart failure nor confluent pneumonic infiltrate. Costophrenic angles are marlin r. There are chest leads. IMPRESSION: No active cardiopulmonary disease. No significant change.
--- NOTE | 2019-06-02 23:23 | CT ---
EXAMINATION TYPE: CT brain wo con for TPA DATE OF EXAM: 06/02/2019 COMPARISON: 05/10/2019 HISTORY: Neuro deficit. CT DLP: 1094.4 mGycm Automated exposure control for dose reduction was used. FINDINGS: Ventricles have fairly normal size. There is no mass effect nor midline shift. There is no sign of in tracranial hemorrhage. Calvarium is intact. IMPRESSION: NEGATIVE HEAD CT SCAN. No change.
[2019-06-03 00:23] LABS: Appearance,Urine Clear (Clear); Bilirubin,Urine Negative (Negative); Blood,Urine Negative (Negative); Color,Urine Light Yellow; Glucose,Urine (UA) Negative (Negative); Ketones,Urine Negative (Negative); Leukocyte Esterase,Urine Negative (Negative); Nitrite,Urine Negative (Negative); PH, Urine 5.5 (5.0-8.0); Protein,Urine Negative (Negative); Specific Gravity,Urine 1.007 (1.001-1.035); Urobilinogen,Urine <2.0 mg/dL (<2.0)
[2019-06-03] MEDS ORDERED: NALOXONE 0.4 MG/ML 1 ML VIAL IV PRN (00:44)
[2019-06-03 03:25] VITALS: BMI 44.1
[2019-06-03 06:08] LABS: Glucose,Whole Blood 109 mg/dL (75-99)
[2019-06-03] MEDS: INSULIN ASPART (NovoLOG) 100 UNIT/ML VIAL SQ SCH ×3 (06:09→13:16)
[2019-06-03] MEDS ORDERED: PANTOPRAZOLE 40 MG TABLET PO SCH (07:30)
[2019-06-03] MEDS ORDERED: CLOPIDOGREL 75 MG TAB PO SCH (09:00)
[2019-06-03] MEDS ORDERED: LISINOPRIL 10 MG TAB PO SCH (09:00)
[2019-06-03] MEDS ORDERED: METOPROLOL SUCCINATE (ER) 50 MG TAB.ER.24H PO SCH (09:00)
[2019-06-03] MEDS ORDERED: HYDROCHLOROTHIAZIDE 25 MG TAB PO SCH (09:00)
[2019-06-03 12:09] LABS: Glucose,Whole Blood 139 mg/dL (75-99)
--- NOTE | 2019-06-03 13:17 | MR ---
EXAMINATION TYPE: MR angio head wo con DATE OF EXAM: 06/03/2019 COMPARISON: Prior brain MR 05/10/2019 HISTORY: Recurrent TIA TECHNIQUE: Time of flight images focusing on the [employer] [facility] [place] were performed without contrast. 3- dimensional reconstructions on an alternate workstation. FINDINGS: There is patency of the anterior and posterior circulation, no evident aneurysm, dissection , or embolus. IMPRESSION: Normal [place] MRA.
--- NOTE | 2019-06-03 15:18 | P.CNNES ---
History of Present Illness Consult date: 06/03/19 Requesting physician: Gilda Hartman Reason for Consult: Right-sided numbness, negative workup History of Present Illness: Patient is a 68-year-old female, who was recently hospitalized for right facial brachial numbness on 05/10/2019. Patient was seen by Dr. Mcclure, and patient underwent an MRI of the brain, which was negative for any acute stroke. Focal bright signal on DWI within the right periatrial white matter response to T2 shine through and coordinating with ADC map. Mild central cerebral atrophy. Scattered nonspecific T2 bright white matter change nonspecific, likely related to mild changes of chronic small vessel ischemic disease. Incidental empty sella. Carotid Doppler was negative showing mild atherosclerotic plaque. Patient had a 2-D echo which revealed EF greater than 55%. Left-ventricular size and wall thickness normal. Left atrium is normal. Mild aortic valve sclerosis. EKG showed normal sinus rhythm. Hemoglobin A1c was 6.8, total cholesterol 108, LDL 48, HDL 44 and triglycerides 82. Patient was on aspirin 81 mg, 2 tablets twice a day taking since every 2018 recommended by her bander hand. After this event, patient's regimen was changed to aspirin 81 mg and Plavix 75 mg. Patient states her neurological symptoms as mentioned above lasted for about 7-8 hours and then resolved. Patient states that she subsequently saw Dr. Mccarthy on 05/31/2019, who recommended an MRA of the brain, and also recommended to stay with monotherapy with Plavix and to stop the aspirin. Patient states that she did not take aspirin on Thursday and morning and this event happened yesterday in the evening. Patient states that the symptoms mostly resolved as of this morning. She feels fine. Denies any focal weakness, slurred speech, double vision. Patient states that yesterday she was riding in the car with her , When at around 7 PM She [place] the Same Thing Coming over Again Involving the Face Arm but Also Involved the Top of the Right Thigh. She [place] like Novocain Shot. Patient has diabetes for the last 18 years, controlled. She has hypertension f or long time. Patient had a cardiac stent performed 10 years ago in 2018 after which she started taking an aspirin 81 mg daily. The dose was increased to 4 baby aspirins a day in August as mentioned above. Patient has never smoked. Denies any family history of strokes. Patient had a repeat computed tomography scan of the head performed yesterday which was normal. Patient also had an MRA of the head performed today, which also is normal with no evidence of large vessel occlusion. Review of Systems Transient numbness as mentioned above. Otherwise completely unremarkable. Past Medical History Past Medical History: Coronary Artery Disease (CAD), Cancer, CVA/TIA, Diabetes Mellitus, GERD/Reflux, Hypertension, Osteoarthritis (OA) Additional Past Medical History / Comment(s): SKIN CANCER , KIDNEY STONES, diarrhea for 6 weeks couple months ago, urinary leakage History of Any Multi-Drug Resistant Organisms: None Reported Past Surgical History: Adenoidectomy, Section, Cholecystectomy, Heart Catheterization, Heart Catheterization With Stent, Joint Replacement, Orthopedic Surgery, Tonsillectomy, Tubal Ligation Additional Past Surgical History / Comment(s): CATARACT BILATERAL EYE, TOTAL mallorie KNEE replacement, BILATERAL CARPAL TUNNEL RELEASE,C- SECTION X3, cancer removed from upper lip, heart cath 10/19 and 01/28 Past Anesthesia/Blood Transfusion Reactions: Motion Sickness Date of Last Stent Placement:: 10/2008 Past Psychological History: No Psychological Hx Reported Smoking Status: Never smoker Past Alcohol Use History: None Reported Past Drug Use History: None Reported - Past Family History Son(s) Family Medical History: Deep Vein Thrombosis (DVT) Mother Additional Family Medical History / Comment(s): Alzheimer Disease Father Additional Family Medical History / Comment(s): Passed at age 48 due to unknown medical complications. Brother(s) Family Medical History: Cancer Additional Family Medical History / Comment(s): Pancreatic cancer, at age 62. Medications and Allergies Home Medications Medication Instructions Recorded Confirmed Type Atorvastatin [Lipitor] 80 mg PO AC-SUPPER 07/21/14 06/02/19 History Insulin Glargine,Hum.rec.anlog 25 units SQ HS 07/21/14 06/02/19 History [Lantus Solostar] Metoprolol Succinate [Toprol XL] 50 mg PO DAILY 09/27/15 06/02/19 History Cholecalciferol [Vitamin D3 (25 2,500 unit PO BID 10/28/18 06/02/19 History Mcg = 1000 Iu)] Insulin Aspart [NovoLOG Flexpen] 10 units SQ TID-W/MEALS 10/28/18 06/02/19 History Omeprazole [PriLOSEC] 20 mg PO AC-BRKFST 10/28/18 06/02/19 History Pioglitazone [Actos] 30 mg PO DAILY 10/28/18 06/02/19 History Bifidobacterium Infantis [Align] 4 mg PO DAILY 01/31/19 06/02/19 History Calcium Carbonate [Calcium] 600 mg PO BID 01/31/19 06/02/19 History Insulin Aspart [NovoLOG Flexpen] See Protocol SQ AC-TID PRN 01/31/19 06/02/19 History Clopidogrel Bisulfate [Plavix] 75 mg PO DAILY #30 tab 05/11/19 06/02/19 Rx Benazepril/Hydrochlorothiazide 0.5 tab PO DAILY 06/02/19 06/02/19 History [Benazepril-Hctz 20-12.5 mg Tab] Isosorbide Dinitrate 30 mg PO W/SUPPER 06/03/19 06/03/19 History Allergies Allergy/AdvReac Type Severity Reaction Status Date / Time No Known Allergies Allergy Verified 06/02/19 22:47 Physical Examination - Vital Signs Vital Signs: Vital Signs Temp Pulse Pulse Resp BP BP Pulse Ox 06/03/19 11:49 97.7 F 63 18 130/71 99 06/03/19 08:00 98.1 F 66 18 147/78 98 06/03/19 04:00 97.6 F 75 18 163/79 98 06/03/19 02:58 97.9 F 81 16 148/69 98 06/03/19 01:01 76 18 146/68 98 06/02/19 23:37 73 18 166/71 97 06/02/19 23:00 72 18 190/82 98 06/02/19 22:48 97.9 F 78 16 186/84 97 Intake and Output 06/03/19 06/03/19 06/03/19 06:59 14:59 22:59 Intake Total 480 Balance 480 Intake: Oral 480 Other: Voiding Method Toilet # Voids 1 Weight 109.458 kg On examination patient is an elderly female, very pleasant, in no acute distress. Patient is alert awake oriented to time place and person. Speech and language functions are normal. Attention and concentration fund of knowledge is adequate. On cranial examination pupils are round and reacting to light, visual jerome are full, face is symmetric, tongue protrudes to the midline. Palatal elevation and sensation normal. On muscle strength testing there is no pronator drift and the strength is normal in arms and legs distally and proximally. Reflexes are 1 in the upper limbs, diminished at the knees from previous knee surgery, 1+ at at the right ankle, 1 on left and plantars downgoing. Sensory to touch and temperature is equal in both upper limbs with no neglect. No ataxia for [id number] testing. Tone and bulk of muscles normal. Gait normal. There is no carotid bruit or murmur, peripheral pulses present. Results - Laboratory Findings CBC and BMP: 06/02/19 23:00 06/02/19 23:00 Abnormal Lab Findings: Abnormal Labs 06/02/19 06/02/19 06/03/19 22:57 23:00 06:05 BUN 25 H Glucose 165 H POC Glucose (mg/dL) 162 H 109 H 06/03/19 12:06 BUN Glucose POC Glucose (mg/dL) 139 H Assessment and Plan Assessment: * Recurrent TIA with numbness of right side of the body. Symptoms are suggesti ve of possible small vessel lacunar syndrome, producing recurrent ischemic symptoms, perhaps in the left thalamus. Patient's symptoms again have resolved. * Hypertension * Diabetes, well controlled * Hyperlipidemia Plan: * Patient's MRA of the brain is normal. Her symptoms are suggestive of possible involvement of small vessel. * Patient will continue Plavix 75 mg daily, and start taking aspirin 81 mg twice a day (dual antiplatelet medication). * Patient was recommended to optimize all other stroke risk factors including hypertension and diabetes. She should continue statins. * Patient was recommended to follow up with her neurologist in 2-3 weeks. * Neurologically clear for discharge.
[2019-06-03 16:07] VITALS: BP 138/79; PULSE 61; RESP 16; TEMP 97.4
[2019-06-03 17:12] LABS: Glucose,Whole Blood 109 mg/dL (75-99)
[2019-06-03] MEDS ORDERED: ISOSORBIDE MONONITRATE ER 30 MG TAB.ER.24H PO SCH (17:30)
[2019-06-03] MEDS ORDERED: ATORVASTATIN 80 MG TAB PO SCH (17:30)
[2019-06-03] MEDS ORDERED: INSULIN ASPART (NovoLOG) 100 UNIT/ML VIAL SQ SCH (17:30)
--- NOTE | 2019-06-03 22:59 | P.HPIM ---
History of Present Illness H&P Date: 06/03/19 Chief Complaint: Right-sided numbness History of presenting complaint: This is a very pleasant 68-year-old patient of Dr. Hernandez. Chronic stable medical conditions include coronary artery disease with stent in 2008, diabetes, GERD, hypertension, osteoarthritis, urinary incontinence. Patient was here with right-sided weakness recently on May 10. Patient then had a carotid Doppler, computed tomography scan of the brain, MRI of the brain although vocal was negative. Brain MRI was to be done as an outpatient. Patient had no residual weakness. Patient was supposed to follow up with Dr. Villafuerte. Yesterday patient presented with some reversible rest of the face, arm and leg. No real weakness. Symptoms lasted for a few hours. There is no change in vision, no change in speech, no change in swallowing or headache. Symptoms are completely resolved. Patient presented to the ER. is present with the patient. Neurology was consulted. Review of systems: GEN.: None EYES: None HEENT: None NECK: None RESPIRATORY: None CARDIOVASCULAR: None GASTROINTESTINAL: None GENITOURINARY: Incontinence MUSCULOSKELETAL: Joint pains LYMPHATICS: None HEMATOLOGICAL: None PSYCHIATRY: None NEUROLOGICAL: As above Past medical history: Coronary artery disease with stent in 2008, diabetes, GERD, hypertension, osteoarthritis, urinary incontinence, kidney stones, skin cancer, TIA Social history: Doesn't smoke or regard. Retired teacher. Physical examination: VITAL SIGNS: 97.9, 78, 16, 186/84, 97% room air GENERAL: BMI 44.1, sitting in the edge of bed comfortable. EYES: Pupils equal. Conjunctiva normal. HEENT: External appearance of nose and ears normal, oral cavity grossly normal. NECK: JVD not raised; masses not palpable. HEART: First and second heart sounds are normal; no edema. LUNGS: Respiratory rate normal; clear to auscultation. ABDOMEN: Soft, nontender, liver spleen not palpable, no masses palpable. PSYCH: Alert and oriented x3; mood and affect normal. NEUROLOGICAL: Cranial nerves grossly intact; no facial asymmetry, power and sensation grossly intact. LYMPHATICS: No lymph nodes palpable in the axilla and neck INVESTIGATIONS, reviewed in the clinical context: Studies from 05/10/2019 to include computed tomography scan will brain, carotid Doppler, MRI of the brain unremarkable Computed tomography scan of this admission-unremarkable EKG tracing personally reviewed by me-to sinus rhythm Chest x-ray film personally reviewed by me-acute, none Assessment: -This is a patient was here about 3 weeks ago with some right-sided numbness. Workup at that time included a computed tomography scan of the brain, carotid D oppler, and one of the brain that was all negative. Yet again presented with similar symptoms. Repeat computed tomography scan again was negative. Symptoms completely resolved. Suspicious again for TIA. -Coronary artery disease with a stent -Diabetes mellitus type 2 -GERD -Essential hypertension -Primary osteoarthritis -Urinary stress incontinence -Morbid obesity BMI 44.1 Plan: MRI of the brain was ordered. Neurology was consulted. Neuro checks in place. Home medications resumed. Past Medical History Past Medical History: Coronary Artery Disease (CAD), Cancer, CVA/TIA, Diabetes Mellitus, GERD/Reflux, Hypertension, Osteoarthritis (OA) Additional Past Medical History / Comment(s): SKIN CANCER , KIDNEY STONES, diarrhea for 6 weeks couple months ago, urinary leakage History of Any Multi-Drug Resistant Organisms: None Reported Past Surgical History: Adenoidectomy, Section, Cholecystectomy, Heart Catheterization, Heart Catheterization With Stent, Joint Replacement, Orthopedic Surgery, Tonsillectomy, Tubal Ligation Additional Past Surgical History / Comment(s): CATARACT BILATERAL EYE, TOTAL mallorie KNEE replacement, BILATERAL CARPAL TUNNEL RELEASE,C- SECTION X3, cancer removed from upper lip, heart cath 10/19 and 01/28 Past Anesthesia/Blood Transfusion Reactions: Motion Sickness Date of Last Stent Placement:: 10/2008 Past Psychological History: No Psychological Hx Reported Smoking Status: Never smoker Past Alcohol Use History: None Reported Past Drug Use History: None Reported - Past Family History Son(s) Family Medical History: Deep Vein Thrombosis (DVT) Mother Additional Family Medical History / Comment(s): Alzheimer Disease Father Additional Family Medical History / Comment(s): Passed at age 48 due to unknown medical complications. Brother(s) Family Medical History: Cancer Additional Family Medical History / Comment(s): Pancreatic cancer, at age 62. Medications and Allergies Home Medications Medication Instructions Recorded Confirmed Type Atorvastatin [Lipitor] 80 mg PO AC-SUPPER 07/21/14 06/02/19 History Insulin Glargine,Hum.rec.anlog 25 units SQ HS 07/21/14 06/02/19 History [Lantus Solostar] Metoprolol Succinate [Toprol XL] 50 mg PO DAILY 09/27/15 06/02/19 History Cholecalciferol [Vitamin D3 (25 2,500 unit PO BID 10/28/18 06/02/19 History Mcg = 1000 Iu)] Insulin Aspart [NovoLOG Flexpen] 10 units SQ TID-W/MEALS 10/28/18 06/02/19 History Omeprazole [PriLOSEC] 20 mg PO AC-BRKFST 10/28/18 06/02/19 History Pioglitazone [Actos] 30 mg PO DAILY 10/28/18 06/02/19 History Bifidobacterium Infantis [Align] 4 mg PO DAILY 01/31/19 06/02/19 History Calcium Carbonate [Calcium] 600 mg PO BID 01/31/19 06/02/19 History Insulin Aspart [NovoLOG Flexpen] See Protocol SQ AC-TID PRN 01/31/19 06/02/19 History Clopidogrel Bisulfate [Plavix] 75 mg PO DAILY #30 tab 05/11/19 06/02/19 Rx Benazepril/Hydrochlorothiazide 0.5 tab PO DAILY 06/02/19 06/02/19 History [Benazepril-Hctz 20-12.5 mg Tab] Aspirin 81 mg PO DAILY #30 chewable 06/03/19 Rx Isosorbide Dinitrate 30 mg PO W/SUPPER 06/03/19 06/03/19 History Allergies Allergy/AdvReac Type Severity Reaction Status Date / Time No Known Allergies Allergy Verified 06/02/19 22:47 Physical Exam Vitals: Vital Signs Temp Pulse Pulse Resp BP BP Pulse Ox 06/03/19 11:49 97.7 F 63 18 130/71 99 06/03/19 08:00 98.1 F 66 18 147/78 98 06/03/19 04:00 97.6 F 75 18 163/79 98 06/03/19 02:58 97.9 F 81 16 148/69 98 06/03/19 01:01 76 18 146/68 98 06/02/19 23:37 73 18 166/71 97 06/02/19 23:00 72 18 190/82 98 06/02/19 22:48 97.9 F 78 16 186/84 97 Intake and Output 06/02/19 06/03/19 06/03/19 22:59 06:59 14:59 Intake Total 240 Balance 240 Intake: Oral 240 Other: Voiding Method Toilet # Voids 1 Weight 108.862 kg 109.458 kg Results CBC & Chem 7: 06/02/19 23:00 06/02/19 23:00 Labs: Abnormal Lab Results - Last 24 Hours (Table) 06/02/19 06/02/19 06/03/19 Range/Units 22:57 23:00 06:05 BUN 25 H (7-17) mg/dL Glucose 165 H (74-99) mg/dL POC Glucose (mg/dL) 162 H 109 H (75-99) mg/dL 06/03/19 Range/Units 12:06 BUN (7-17) mg/dL Glucose (74-99) mg/dL POC Glucose (mg/dL) 139 H (75-99) mg/dL Thrombosis Risk Factor Assmnt - Choose All That Apply Each Risk Factor Represents 2 Points: Age 61-74 years Thrombosis Risk Factor Assessment Total Risk Factor Score: 2 Thrombosis Risk Factor Assessment Level: Low Risk
--- NOTE | 2019-06-06 15:29 | P.DS ---
Providers Date of admission: 06/03/19 00:46 Expected date of discharge: 06/03/19 Attending physician: Stevo Zapata Consults: 06/03/19 00:44 Consult Physician Urgent Consulting Provider: Serjio Landin Consult Reason/Comments: right sided numbness - negative workup, had TIA 2 weeks ago Do you want consulting provider notified?: Yes, Notify in am Primary care physician: Lukas [facility] Course: Chief Complaint: Right-sided numbness History of presenting complaint: This is a very pleasant 68-year-old patient of Dr. Hernandez. Chronic stable med ical conditions include coronary artery disease with stent in 2008, diabetes, GERD, hypertension, osteoarthritis, urinary incontinence. Patient was here with right-sided weakness recently on May 10. Patient then had a carotid Doppler, computed tomography scan of the brain, MRI of the brain although vocal was negative. Brain MRI was to be done as an outpatient. Patient had no residual weakness. Patient was supposed to follow up with Dr. Villafuerte. Yesterday patient presented with some reversible rest of the face, arm and leg. No real weakness. Symptoms lasted for a few hours. There is no change in vision, no change in speech, no change in swallowing or headache. Symptoms are completely resolved. Patient presented to the ER. Brain magnetic resonance imaging came back to be negative. Seen by neurology. Julius for discharge. Care was discussed with the patient and . Engine Dynamometer Tester: Dr. Nuñez from neurology Physical examination: VITAL SIGNS: 97.4, 61, 16, 138/79, 100% room air GENERAL: BMI 44.1, sitting in the edge of bed comfortable. EYES: Pupils equal. Conjunctiva normal. HEENT: External appearance of nose and ears normal, oral cavity grossly normal. NECK: JVD not raised; masses not palpable. HEART: First and second heart sounds are normal; no edema. LUNGS: Respiratory rate normal; clear to auscultation. ABDOMEN: Soft, nontender, liver spleen not palpable, no masses palpable. PSYCH: Alert and oriented x3; mood and affect normal. NEUROLOGICAL: Cranial nerves grossly intact; no facial asymmetry, power and sensation grossly intact. INVESTIGATIONS, reviewed in the clinical context: Studies from 05/10/2019 to include computed tomography scan will brain, carotid Doppler, MRI of the brain unremarkable Computed tomography scan of this admission-unremarkable EKG tracing personally reviewed by me-to sinus rhythm Chest x-ray film personally reviewed by me-acute, none MRA-unremarkable Assessment: -Possible TIA -Coronary artery disease with a stent -Diabetes mellitus type 2 -GERD -Essential hypertension -Primary osteoarthritis -Urinary stress incontinence -Morbid obesity BMI 44.1 Disposition: Home Patient Condition at Discharge: Stable Plan - Discharge Summary Discharge Rx Participant: No New Discharge Prescriptions: New Aspirin 81 mg PO DAILY #30 chewable Continue Insulin Glargine,Hum.rec.anlog [Lantus Solostar] 25 units SQ HS Atorvastatin [Lipitor] 80 mg PO AC-SUPPER Metoprolol Succinate [Toprol XL] 50 mg PO DAILY Cholecalciferol [Vitamin D3 (25 Mcg = 1000 Iu)] 2,500 unit PO BID Insulin Aspart [NovoLOG Flexpen] 10 units SQ TID-W/MEALS Pioglitazone [Actos] 30 mg PO DAILY Omeprazole [PriLOSEC] 20 mg PO AC-BRKFST Bifidobacterium Infantis [Align] 4 mg PO DAILY Calcium Carbonate [Calcium] 600 mg PO BID Insulin Aspart [NovoLOG Flexpen] See Protocol SQ AC-TID PRN PRN Reason: BLOOD SUGAR OVER 150 Clopidogrel Bisulfate [Plavix] 75 mg PO DAILY #30 tab Benazepril/Hydrochlorothiazide [Benazepril-Hctz 20-12.5 mg Tab] 0.5 tab PO DAILY Isosorbide Dinitrate 30 mg PO W/SUPPER Discharge Medication List Atorvastatin [Lipitor] 80 mg PO AC-SUPPER 07/21/14 [History] Insulin Glargine,Hum.rec.anlog [Lantus Solostar] 25 units SQ HS 07/21/14 [History] Metoprolol Succinate [Toprol XL] 50 mg PO DAILY 09/27/15 [History] Cholecalciferol [Vitamin D3 (25 Mcg = 1000 Iu)] 2,500 unit PO BID 10/28/18 [History] Insulin Aspart [NovoLOG Flexpen] 10 units SQ TID-W/MEALS 10/28/18 [History] Omeprazole [PriLOSEC] 20 mg PO AC-BRKFST 10/28/18 [History] Pioglitazone [Actos] 30 mg PO DAILY 10/28/18 [History] Bifidobacterium Infantis [Align] 4 mg PO DAILY 01/31/19 [History] Calcium Carbonate [Calcium] 600 mg PO BID 01/31/19 [History] Insulin Aspart [NovoLOG Flexpen] See Protocol SQ AC-TID PRN 01/31/19 [History] Clopidogrel Bisulfate [Plavix] 75 mg PO DAILY #30 tab 05/11/19 [Rx] Benazepril/Hydrochlorothiazide [Benazepril-Hctz 20-12.5 mg Tab] 0.5 tab PO DAILY 06/02/19 [History] Aspirin 81 mg PO DAILY #30 chewable 06/03/19 [Rx] Isosorbide Dinitrate 30 mg PO W/SUPPER 06/03/19 [History] Follow up Appointment(s)/Referral(s): Lukas Hernandez DO [Primary Care Provider] - 06/16/19 10:40 am (Office will call if an earlier appointment opens up. For now keep previous appointment. ) Tony Villafuerte MD [Medical Doctor] - 1 Week (Office closed, please follow up with your neurologist within one week of being discharged. ) Patient Instructions/Handouts: Transient Ischemic Attack (DC), Heart Healthy Diet (DC) Activity/Diet/Wound Care/Special Instructions: CVA/TIA 1. Call your physician with any worsening symptoms of stroke such as, increased weakness, new numbness or tingling, mental status changes, visual changes or new loss of sensation. 2. Stroke prevention methods include lowering cholesterol, thinning your blood, preventing high blood pressure, keeping tight control of your diabetes, increasing exercise/activity, smoking cessation and alcohol cessation. Discharge Disposition: HOME SELF-CARE
== END 2019-06-03 17:58 | disposition home or self-care (01) ==
LOC: EC 22:46 → 3SCARD 06-03 00:46
PROVIDERS: ADMIT Hospitalist; ATTEND Hospitalist
DX: R20.0 Anesthesia of skin (principal); E11.9 Type 2 diabetes mellitus without complications; E66.01 Morbid (severe) obesity due to excess calories; E78.5 Hyperlipidemia, unspecified; I10 Essential (primary) hypertension; I25.10 Atherosclerotic heart disease of native coronary artery without angina pectoris; I35.8 Other nonrheumatic aortic valve disorders; K21.9 Gastro-esophageal reflux disease without esophagitis; M19.91 Primary osteoarthritis, unspecified site; N39.3 Stress incontinence (female) (male); Z68.41 Body mass index [BMI] 40.0-44.9, adult; Z79.02 Long term (current) use of antithrombotics/antiplatelets; Z79.4 Long term (current) use of insulin; Z79.82 Long term (current) use of aspirin; Z79.899 Other long term (current) drug therapy; Z80.0 Family history of malignant neoplasm of digestive organs; Z82.0 Family history of epilepsy and other diseases of the nervous system; Z85.828 Personal history of other malignant neoplasm of skin; Z86.73 Personal history of transient ischemic attack (TIA), and cerebral infarction without residual deficits; Z87.442 Personal history of urinary calculi; Z95.5 Presence of coronary angioplasty implant and graft; Z96.653 Presence of artificial knee joint, bilateral; Z90.49 Acquired absence of other specified parts of digestive tract; Z98.42 Cataract extraction status, left eye; Z98.41 Cataract extraction status, right eye; Z98.51 Tubal ligation status
CPT/HCPCS: 96361 ×2; 96360; 99285; 36415; 93005; 80053; 84484; 85025; 85610; 85730; 81003; 71046; 70450; 70544; G0378

== ENCOUNTER 2019-06-08 11:01 | Emergency (ER) | payer MEDICARE ==
[2019-06-08 11:08] VITALS: BP 152/76; PULSE 71; RESP 17; TEMP 97.9
--- NOTE | 2019-06-08 11:52 | CT ---
EXAMINATION TYPE: CT brain wo con DATE OF EXAM: 06/08/2019 COMPARISON: 06/02/2019 CT brain INDICATION: Right sided facial and arm numbness. DLP: 1129.4 mGycm, Automated exposure control for dose reduction was used. CONTRAST: None CT of the brain is performed utilizing 3 mm thick sections through the posterior fossa and 3 mm thick sections through the remaining calvarium. Study is performed within 24 hours of arrival to the hosp ital. No abnormal hyperdensity is present to suggest an acute intracranial hemorrhage. No mass lesion is evident. No acute infarcts are evident. Ventricles and sulci are appropriate for the patient age. Paranasal sinuses and mastoid air cells within the [id number] are clear. IMPRESSIONS: 1. Normal CT Brain 2. Examination appears stable from the comparison study.
--- NOTE | 2019-06-08 12:02 | ED ---
General Adult HPI - General Chief complaint: Neuro Symptoms/Deficit Stated complaint: rt sided numbness Time Seen by Provider: 06/08/19 11:11 Source: patient, RN notes reviewed, old records reviewed Mode of arrival: wheelchair Limitations: no limitations - History of Present Illness Initial comments: 68-year-old female presents for evaluation of right sided numbness and tingling. No reported weakness. Patient has had symptoms over the past several weeks and has presented to the emergency department with admission for TIA on 2 separate occasions. She reports his symptoms returned at approximately 10 AM. Denies headache. Denies vision changes. Numbness is right-sided patient's face, right arm and progressing into her right leg. She is on aspirin and Plavix. She's had workup including MRI MRA carotid ultrasound. She's been seen by neurology both as an inpatient and as an outpatient. - Related Data Home Medications Medication Instructions Recorded Confirmed Atorvastatin [Lipitor] 80 mg PO AC-SUPPER 07/21/14 06/08/19 Insulin Glargine,Hum.rec.anlog 25 units SQ HS 07/21/14 06/08/19 [Lantus Solostar] Metoprolol Succinate [Toprol XL] 50 mg PO DAILY 09/27/15 06/08/19 Cholecalciferol [Vitamin D3 (25 2,500 unit PO BID 10/28/18 06/08/19 Mcg = 1000 Iu)] Insulin Aspart [NovoLOG Flexpen] 5 units SQ TID-W/MEALS 10/28/18 06/08/19 Omeprazole [PriLOSEC] 20 mg PO AC-BRKFST 10/28/18 06/08/19 Pioglitazone [Actos] 30 mg PO DIRECTED 10/28/18 06/08/19 Bifidobacterium Infantis [Align] 4 mg PO DAILY 01/31/19 06/08/19 Calcium Carbonate [Calcium] 600 mg PO BID 01/31/19 06/08/19 Insulin Aspart [NovoLOG Flexpen] See Protocol SQ AC-TID PRN 01/31/19 06/08/19 Benazepril/Hydrochlorothiazide 0.5 tab PO DAILY 06/02/19 06/08/19 [Benazepril-Hctz 20-12.5 mg Tab] Isosorbide Dinitrate 30 mg PO W/SUPPER 06/03/19 06/08/19 Aspirin 162 mg PO BID 06/08/19 06/08/19 Previous Rx's Medication Instructions Recorded Clopidogrel Bisulfate [Plavix] 75 mg PO DAILY #30 tab 05/11/19 Allergies Allergy/AdvReac Type Severity Reaction Status Date / Time No Known Allergies Allergy Verified 06/08/19 12:02 Review of Systems ROS Statement: Those systems with pertinent positive or pertinent negative responses have been documented in the HPI. ROS Other: All systems not noted in ROS Statement are negative. Past Medical History Past Medical History: Coronary Artery Disease (CAD), Cancer, CVA/TIA, Diabetes Mellitus, GERD/Reflux, Hypertension, Osteoarthritis (OA) Additional Past Medical History / Comment(s): SKIN CANCER , KIDNEY STONES, diarrhea for 6 weeks couple months ago, urinary leakage History of Any Multi-Drug Resistant Organisms: None Reported Past Surgical History: Adenoidectomy, Section, Cholecystectomy, Heart Catheterization, Heart Catheterization With Stent, Joint Replacement, Orthopedic Surgery, Tonsillectomy, Tubal Ligation Additional Past Surgical History / Comment(s): CATARACT BILATERAL EYE, TOTAL mallorie KNEE replacement, BILATERAL CARPAL TUNNEL RELEASE,C- SECTION X3, cancer removed from upper lip, heart cath 10/19 and 01/28 Past Anesthesia/Blood Transfusion Reactions: Motion Sickness Date of Last Stent Placement:: 10/2008 Past Psychological History: No Psychological Hx Reported Smoking Status: Never smoker Past Alcohol Use History: None Reported Past Drug Use History: None Reported - Past Family History Son(s) Family Medical History: Deep Vein Thrombosis (DVT) Mother Additional Family Medical History / Comment(s): Alzheimer Disease Father Additional Family Medical History / Comment(s): Passed at age 48 due to unknown medical complications. Brother(s) Family Medical History: Cancer Additional Family Medical History / Comment(s): Pancreatic cancer, at age 62. General Exam Limitations: no limitations General appearance: alert, in no apparent distress Head exam: Present: atraumatic, normocephalic Eye exam: Present: normal appearance, PERRL, EOMI ENT exam: Present: normal exam Neck exam: Present: normal inspection. Absent: tenderness, meningismus Respiratory exam: Present: normal lung sounds bilaterally, respiratory distress Cardiovascular Exam: Present: regular rate, normal rhythm GI/Abdominal exam: Present: soft. Absent: distended, tenderness, guarding Extremities exam: Present: normal inspection Neurological exam: Present: alert, oriented X3, CN II-XII intact, motor sensory deficit (Minor sensory deficit right upper extremity and upper portion of the right lower extremity. No focal weakness, 5 out of 5 strength.) Psychiatric exam: Present: normal affect, normal mood Skin exam: Present: warm, dry, intact. Absent: cyanosis, diaphoretic Course Vital Signs 06/08/19 11:05 Temperature 97.9 F Pulse Rate 71 Respiratory 17 Rate Blood Pressure 152/76 O2 Sat by Pulse 97 Oximetry EKG Findings - EKG Comments: EKG Findings:: EKG: Normal sinus rhythm, rate of 76, MN interval 184, QRS duration 90, QTC 427, no ST segment elevation or depression, no arrhythmia Medical Decision Making - Medical Decision Making 68-year-old female presenting for evaluation of right arm numbness, right facial numbness. Symptoms similar to previous TIA which did evaluated in the ER and with inpatient admission. Imaging from previous admission including MRI, MRA, an ultrasound of carotid arteries was reviewed. This was within normal limits. Head CT was performed today which was negative for any acute abnormality. Patient has normal electrolytes, normal CBC. She is stable vitals as well. She has no motor deficits. She has sensation although she perceives this has diminished on the right. Discussed case with Dr. Mcclure who is familiar with this patient. Agrees that there is no need for further inpatient evaluation. Recommends reevaluating aspirin and Plavix. Patient is currently on aspirin and Plavix. She's been on Plavix for 3 weeks because she had been on aspirin prior to previous TIA. She has an appointment with her neurologist in one week. Patient is eager for discharge. She will maintain her appointment with her neurologist. She will continue medications as prescribed until she follows up with her neurologist. - Lab Data Result diagrams: 06/08/19 12:15 06/08/19 12:15 Lab Results 06/08/19 06/08/19 Range/Units 12:15 12:15 WBC 7.1 (3.8-10.6) k/uL RBC 4.95 (3.80-5.40) m/uL Hgb 14.7 (11.4-16.0) gm/dL Hct 43.9 (34.0-46.0) % MCV 88.8 (80.0-100.0) fL MCH 29.7 (25.0-35.0) pg MCHC 33.4 (31.0-37.0) g/dL RDW 12.7 (11.5-15.5) % Plt Count 234 (150-450) k/uL Neutrophils % 63 % Lymphocytes % 24 % Monocytes % 8 % Eosinophils % 2 % Basophils % 1 % Neutrophils # 4.5 (1.3-7.7) k/uL Lymphocytes # 1.7 (1.0-4.8) k/uL Monocytes # 0.6 (0-1.0) k/uL Eosinophils # 0.2 (0-0.7) k/uL Basophils # 0.1 (0-0.2) k/uL Sodium 138 (137-145) mmol/L Potassium 4.1 (3.5-5.1) mmol/L Chloride 102 (98-107) mmol/L Carbon Dioxide 30 (22-30) mmol/L Anion Gap 6 mmol/L BUN 21 H (7-17) mg/dL Creatinine 0.76 (0.52-1.04) mg/dL Est GFR (CKD-EPI)AfAm >90 (>60 ml/min/1.73 sqM) Est GFR (CKD-EPI)NonAf 81 (>60 ml/min/1.73 sqM) Glucose 139 H (74-99) mg/dL Calcium 10.1 (8.4-10.2) mg/dL Magnesium 2.1 (1.6-2.3) mg/dL Total Bilirubin 1.4 H (0.2-1.3) mg/dL AST 34 (14-36) U/L ALT 30 (9-52) U/L Alkaline Phosphatase 88 (38-126) U/L Total Protein 7.5 (6.3-8.2) g/dL Albumin 4.1 (3.5-5.0) g/dL Disposition Clinical Impression: Transient cerebral ischemia Disposition: HOME SELF-CARE Condition: Fair Instructions (If sedation given, give patient instructions): Transient Ischemic Attack (ED) Is patient prescribed a controlled substance at d/c from ED?: No Referrals: Lukas Hernandez DO [Primary Care Provider] - 1-2 days Tony Villafuerte MD [Medical Doctor] - 1-2 days Time of Disposition: 13:08
[2019-06-08 12:40] LABS: Basophils # (A) 0.1 k/uL (0-0.2); Basophils % (A) 1 %; Eosinophils # (A) 0.2 k/uL (0-0.7); Eosinophils % (A) 2 %; HCT 43.9 % (34.0-46.0); HGB 14.7 gm/dL (11.4-16.0); Lymphocytes # (A) 1.7 k/uL (1.0-4.8); Lymphocytes % (A) 24 %; MCH 29.7 pg (25.0-35.0); MCHC 33.4 g/dL (31.0-37.0); MCV 88.8 fL (80.0-100.0); Mean Platelet Volume 6.5; Monocytes # (A) 0.6 k/uL (0-1.0); Monocytes % (A) 8 %; Neutrophils # (A) 4.5 k/uL (1.3-7.7); Neutrophils % (A) 63 %; Platelet Count 234 k/uL (150-450); RBC 4.95 m/uL (3.80-5.40); RDW 12.7 % (11.5-15.5); WBC 7.1 k/uL (3.8-10.6)
[2019-06-08 12:45] LABS: ALT 30 U/L (9-52); AST 34 U/L (14-36); African American GFR (CKD) >90 (>60 ml/min/1.73 sqM); Albumin 4.1 g/dL (3.5-5.0); Alkaline Phosphatase 88 U/L (38-126); Anion Gap 6 mmol/L; Blood Urea Nitrogen 21 mg/dL (7-17); Calcium 10.1 mg/dL (8.4-10.2); Carbon Dioxide 30 mmol/L (22-30); Chloride 102 mmol/L (98-107); Glucose 139 mg/dL (74-99); Magnesium 2.1 mg/dL (1.6-2.3); Non-African American GFR(CKD) 81 (>60 ml/min/1.73 sqM); Potassium 4.1 mmol/L (3.5-5.1); Sodium 138 mmol/L (137-145); Total Bilirubin 1.4 mg/dL (0.2-1.3); Total Protein 7.5 g/dL (6.3-8.2)
== END 2019-06-08 13:25 | disposition home or self-care (01) ==
LOC: EC 11:01
DX: G45.9 Transient cerebral ischemic attack, unspecified (principal); I25.10 Atherosclerotic heart disease of native coronary artery without angina pectoris; E11.9 Type 2 diabetes mellitus without complications; K21.9 Gastro-esophageal reflux disease without esophagitis; I10 Essential (primary) hypertension; M19.90 Unspecified osteoarthritis, unspecified site; Z79.4 Long term (current) use of insulin; Z79.82 Long term (current) use of aspirin; Z79.899 Other long term (current) drug therapy; Z86.73 Personal history of transient ischemic attack (TIA), and cerebral infarction without residual deficits; Z85.828 Personal history of other malignant neoplasm of skin; Z95.5 Presence of coronary angioplasty implant and graft; Z96.653 Presence of artificial knee joint, bilateral
CPT/HCPCS: 36415; 70450; 80053; 83735; 85025; 99285

== ENCOUNTER 2021-04-17 15:33 | Inpatient (IN) | payer MEDICARE ==
[2021-04-17] MEDS ORDERED: SODIUM CHLORIDE 0.9% 500 ML 500 ML IV STA (16:02)
--- NOTE | 2021-04-17 16:13 | ED ---
General Adult HPI - General Chief complaint: Neuro Symptoms/Deficit Stated complaint: r sided numbness Time Seen by Provider: 04/17/21 15:51 Source: patient, RN notes reviewed, old records reviewed Mode of arrival: ambulatory Limitations: no limitations - History of Present Illness Initial comments: 70-year-old female presenting for evaluation of right-sided numbness and tingling. Patient has a previous history of TIA. She is currently on aspirin and Plavix. She states that yesterday evening approximately 22 hours prior to arrival she developed the symptoms. They have persisted and she is seeking medical attention. She denies weakness. She denies headache. Denies chest pain or dyspnea. She states that her previous TIA right arm and right facial numbness which she is experiencing today and today she also has right leg numbness and tingling. - Related Data Home Medications Medication Instructions Recorded Confirmed Atorvastatin [Lipitor] 80 mg PO HS 07/21/14 04/17/21 Insulin Glargine,Hum.rec.anlog 30 units SQ HS 07/21/14 04/17/21 [Lantus Solostar Pen] Metoprolol Succinate [Toprol XL] 50 mg PO DAILY 09/27/15 04/17/21 Calcium Carbonate [Calcium] 1,200 mg PO DAILY 01/31/19 04/17/21 Insulin Aspart [NovoLOG Flexpen] See Protocol SQ AC-TID 01/31/19 04/17/21 Isosorbide Dinitrate 30 mg PO HS 06/03/19 04/17/21 Aspirin 81 mg PO BID 06/08/19 04/17/21 Benazepril HCl 10 mg PO HS 04/17/21 04/17/21 Benazepril HCl 20 mg PO DAILY 04/17/21 04/17/21 Cholecalciferol (Vitamin D3) 125 mcg PO DAILY 04/17/21 04/17/21 [Vitamin D3 (125 MCG = 5,000 IU)] Empagliflozin [Jardiance] 25 mg PO DAILY 04/17/21 04/17/21 Pantoprazole Sodium [Protonix] 40 mg PO BID 04/17/21 04/17/21 Previous Rx's Medication Instructions Recorded Clopidogrel Bisulfate [Plavix] 75 mg PO DAILY #30 tab 05/11/19 Allergies Allergy/AdvReac Type Severity Reaction Status Date / Time No Known Allergies Allergy Verified 04/17/21 18:11 Review of Systems ROS Statement: Those systems with pertinent positive or pertinent negative responses have been documented in the HPI. ROS Other: All systems not noted in ROS Statement are negative. Past Medical History Past Medical History: Coronary Artery Disease (CAD), Cancer, CVA/TIA, Diabetes Mellitus, GERD/Reflux, Hypertension, Osteoarthritis (OA) Additional Past Medical History / Comment(s): SKIN CANCER , KIDNEY STONES, diarrhea for 6 weeks couple months ago, urinary leakage History of Any Multi-Drug Resistant Organisms: None Reported Past Surgical History: Adenoidectomy, Section, Cholecystectomy, Heart Catheterization, Heart Catheterization With Stent, Joint Replacement, Orthopedic Surgery, Tonsillectomy, Tubal Ligation Additional Past Surgical History / Comment(s): CATARACT BILATERAL EYE, TOTAL mallorie KNEE replacement, BILATERAL CARPAL TUNNEL RELEASE,C- SECTION X3, cancer removed from upper lip, heart cath 10/19 and 01/28 Past Anesthesia/Blood Transfusion Reactions: Motion Sickness Date of Last Stent Placement:: 10/2008 Past Psychological History: No Psychological Hx Reported Smoking Status: Never smoker Past Alcohol Use History: None Reported Past Drug Use History: None Reported - Past Family History Son(s) Family Medical History: Deep Vein Thrombosis (DVT) Mother Additional Family Medical History / Comment(s): Alzheimer Disease Father Additional Family Medical History / Comment(s): Passed at age 48 due to unknown medical complications. Brother(s) Family Medical History: Cancer Additional Family Medical History / Comment(s): Pancreatic cancer, at age 62. General Exam Limitations: no limitations General appearance: alert, in no apparent distress Head exam: Present: atraumatic, normocephalic Eye exam: Present: normal appearance, PERRL ENT exam: Present: normal exam Neck exam: Present: normal inspection. Absent: tenderness, meningismus Respiratory exam: Present: normal lung sounds bilaterally. Absent: respiratory distress Cardiovascular Exam: Present: normal rhythm, tachycardia GI/Abdominal exam: Present: soft. Absent: distended, tenderness, guarding Extremities exam: Present: normal inspection, normal capillary refill. Absent: pedal edema Neurological exam: Present: alert, oriented X3, CN II-XII intact, motor sensory deficit (Patient has mild reduced sensation on the right, right face, right arm. NIH of 1.) Psychiatric exam: Present: normal affect, normal mood Skin exam: Present: warm, dry, intact. Absent: cyanosis, diaphoretic Course Vital Signs 04/17/21 04/17/21 15:47 19:01 Temperature 98.2 F Pulse Rate 120 H 69 Respiratory 16 18 Rate Blood Pressure 152/69 149/79 O2 Sat by Pulse 97 98 Oximetry EKG Findings - EKG Comments: EKG Findings:: EKG: Normal sinus rhythm, rate of 68, SD interval 164, QRS duration 86, QTC 395, no ST segment elevation. Medical Decision Making - Medical Decision Making 70-year-old female with history of previous TIA resulting with right-sided nu mbness and tingling. Patient is well-appearing. She has no focal weakness. She has a low NIH. Head CT is performed which is negative for intracranial hemorrhage. CT angiography also performed, results pending. Chest x-ray is clear. She has a normal CBC, normal CMP, negative troponin. She is in sinus rhythm. She will be admitted with neurology on consult. Case discussed with Dr. Zavala who will admit. - Lab Data Result diagrams: 04/17/21 16:44 04/17/21 16:44 Lab Results 04/17/21 04/17/21 04/17/21 Range/Units 16:44 16:44 16:44 WBC 7.8 (3.8-10.6) k/uL RBC 5.27 (3.80-5.40) m/uL Hgb 15.7 (11.4-16.0) gm/dL Hct 47.6 H (34.0-46.0) % MCV 90.4 (80.0-100.0) fL MCH 29.8 (25.0-35.0) pg MCHC 32.9 (31.0-37.0) g/dL RDW 12.7 (11.5-15.5) % Plt Count 235 (150-450) k/uL MPV 7.4 Neutrophils % 64 % Lymphocytes % 26 % Monocytes % 7 % Eosinophils % 1 % Basophils % 0 % Neutrophils # 5.0 (1.3-7.7) k/uL Lymphocytes # 2.0 (1.0-4.8) k/uL Monocytes # 0.5 (0-1.0) k/uL Eosinophils # 0.1 (0-0.7) k/uL Basophils # 0.0 (0-0.2) k/uL PT 10.3 (9.0-12.0) sec INR 1.0 (<1.2) APTT 24.0 (22.0-30.0) sec Sodium 140 (137-145) mmol/L Potassium 4.6 (3.5-5.1) mmol/L Chloride 107 (98-107) mmol/L Carbon Dioxide 23 (22-30) mmol/L Anion Gap 10 mmol/L BUN 25 H (7-17) mg/dL Creatinine 1.02 (0.52-1.04) mg/dL Est GFR (CKD-EPI)AfAm 64 (>60 ml/min/1.73 sqM) Est GFR (CKD-EPI)NonAf 56 (>60 ml/min/1.73 sqM) Glucose 129 H (74-99) mg/dL Calcium 10.3 H (8.4-10.2) mg/dL Total Bilirubin 1.0 (0.2-1.3) mg/dL AST 30 (14-36) U/L ALT 21 (4-34) U/L Alkaline Phosphatase 88 (38-126) U/L Troponin I (0.000-0.034) ng/mL Total Protein 7.2 (6.3-8.2) g/dL Albumin 3.9 (3.5-5.0) g/dL 04/17/21 Range/Units 16:44 WBC (3.8-10.6) k/uL RBC (3.80-5.40) m/uL Hgb (11.4-16.0) gm/dL Hct (34.0-46.0) % MCV (80.0-100.0) fL MCH (25.0-35.0) pg MCHC (31.0-37.0) g/dL RDW (11.5-15.5) % Plt Count (150-450) k/uL MPV Neutrophils % % Lymphocytes % % Monocytes % % Eosinophils % % Basophils % % Neutrophils # (1.3-7.7) k/uL Lymphocytes # (1.0-4.8) k/uL Monocytes # (0-1.0) k/uL Eosinophils # (0-0.7) k/uL Basophils # (0-0.2) k/uL PT (9.0-12.0) sec INR (<1.2) APTT (22.0-30.0) sec Sodium (137-145) mmol/L Potassium (3.5-5.1) mmol/L Chloride (98-107) mmol/L Carbon Dioxide (22-30) mmol/L Anion Gap mmol/L BUN (7-17) mg/dL Creatinine (0.52-1.04) mg/dL Est GFR (CKD-EPI)AfAm (>60 ml/min/1.73 sqM) Est GFR (CKD-EPI)NonAf (>60 ml/min/1.73 sqM) Glucose (74-99) mg/dL Calcium (8.4-10.2) mg/dL Total Bilirubin (0.2-1.3) mg/dL AST (14-36) U/L ALT (4-34) U/L Alkaline Phosphatase (38-126) U/L Troponin I <0.012 (0.000-0.034) ng/mL Total Protein (6.3-8.2) g/dL Albumin (3.5-5.0) g/dL Disposition Clinical Impression: Cerebrovascular accident (CVA), Transient cerebral ischemia Disposition: ADMITTED IP TO THIS [facility] Condition: Stable Is patient prescribed a controlled substance at d/c from ED?: No Referrals: Lukas Hernandez DO [Primary Care Provider] - 1-2 days Decision to Admit Reason: Admit from EC Decision Date: 04/17/21 Decision Time: 19:49
[2021-04-17 16:59] LABS: Basophils % (A) 0 %; Eosinophils # (A) 0.1 k/uL (0-0.7); Eosinophils % (A) 1 %; HCT 47.6 % (34.0-46.0); HGB 15.7 gm/dL (11.4-16.0); Lymphocytes % (A) 26 %; MCH 29.8 pg (25.0-35.0); MCHC 32.9 g/dL (31.0-37.0); MCV 90.4 fL (80.0-100.0); Mean Platelet Volume 7.4; Monocytes # (A) 0.5 k/uL (0-1.0); Monocytes % (A) 7 %; Neutrophils % (A) 64 %; Platelet Count 235 k/uL (150-450); RBC 5.27 m/uL (3.80-5.40); RDW 12.7 % (11.5-15.5); WBC 7.8 k/uL (3.8-10.6)
[2021-04-17 17:08] LABS: Albumin 3.9 g/dL (3.5-5.0); Calcium 10.3 mg/dL (8.4-10.2); Potassium 4.6 mmol/L (3.5-5.1); Total Protein 7.2 g/dL (6.3-8.2)
[2021-04-17 17:09] LABS: Prothrombin Time 10.3 sec (9.0-12.0)
--- NOTE | 2021-04-17 17:37 | XR ---
EXAMINATION TYPE: XR chest 2V DATE OF EXAM: 04/17/2021 COMPARISON: 06/02/2019 HISTORY: 70 years Female. STUDY INDICATION GIVEN: altered mental status . TECHNIQUE: Frontal and lateral chest radiographs IMPRESSION: No focal airspace disease, pneumothorax or pleural effusion. Cardiomediastinal silhouette is normal. Tiny cystic changes seen in the upper lobes likely on the basis of COPD/emphysema progressed compared to prior. No acute osseous abnormality. Bony spurs noted in the spine similar to prior. Minimal atherosclerotic calcifications project in the aortic arch. Overall no significant change.
--- NOTE | 2021-04-17 19:25 | CT ---
EXAMINATION TYPE: CT brain wo con DATE OF EXAM: 04/17/2021 COMPARISON: 08/08/2018 HISTORY: right side weakness, h/o TIA TECHNIQUE: CT scan of the head performed without contrast CT DLP: 1082 mGycm Automated exposure control for dose reduction was used. FINDINGS: No acute intracranial hemorrhage midline shift or mass effect seen. Slightly decreased casanova-white matter differentiation seen in the right temporal lobe series 3 2021 im age 12. There is brain volume loss and findings consistent with chronic microvascular ischemic changes. Tiny minimal bilateral lacunar infarcts noted in the bilateral basal ganglia. CSF spaces and ventricles are prominent in keeping with volume loss. No acute orbital, osseous or soft tissue abnormality. Atherosclerotic calcification seen in the intracranial internal carotid arteries. Paranasal sinuses and mastoid air cells partially seen and appear well aerated. IMPRESSION: 1. SLIGHT DECREASE IN CASANOVA-WHITE MATTER DIFFERENTIATION IN THE RIGHT TEMPORAL LOBE COULD BE ARTIFACTU AL OR COULD BE SECONDARY TO VASCULAR INSULT. RECOMMEND CORRELATION WITH BRAIN MRI. 2. CHRONIC CHANGES DESCRIBED IN BODY OF REPORT.
--- NOTE | 2021-04-17 19:38 | CT ---
EXAMINATION TYPE: CT angio head neck DATE OF EXAM: 04/17/2021 HISTORY: right side weakness, h/o TIA COMPARISON: None CT DLP: 531.4 mGycm. Automated Exposure Control for Dose Reduction was Utilized. TECHNIQUE: CTA scan of the neck is performed with IV Contrast, patient injected with 65 mL of Isovue 370, axial images are obtained, coronal and sagittal reformatted images are reviewed. 3D reconstruct ed images are created on an independent workstation and reviewed. FINDINGS: Carotid/Vascular Structures: Minimal atherosclerotic calcifications are seen in the arch of the aorta . There is a common origin of the left common carotid artery and brachiocephalic artery. There is a r etropharyngeal course of the right common carotid artery. There is less than 50% narrowing right grea ter than left involving the carotid bifurcation. Internal carotid arteries are patent. There is mild to moderate bilateral narrowing of the intracranial/cavernous segments of the internal carotid arteri es bilaterally. Both MCAs are patent. There is mild to moderate narrowing at the M1 segment of the ri ght MCA. Mild narrowing of the M1 segment of the left MCA noted. Both anterior cerebral arteries are patent. Questionable origin of the right posterior cerebral artery. Both posterior cerebral art eries are patent. The basilar artery is patent. Vertebral arteries are patent. There is mild narrowin g at the proximal/near origin aspect of the left vertebral artery. The right vertebral artery is vishal nant. Grossly patent deep venous sinuses. Other: No evidence for acute intracranial hemorrhage, midline shift or mass effect. Parapharyngeal fat is maintained. Airways are patent and symmetric in appearance. Occluded lungs are unremarkable. 2.2 cm lesion in the left thyroid lobe extending to the isthmus correlation with ultrasound recommend ed. Moderate severe degenerative changes seen in the cervical and thoracic spine. IMPRESSION: 1. No complete vascular occlusion seen. 2. Mild to moderate right M1 MCA segment narrowing. 3. Mild left M1 MCA segment narrowing. 4. Mild narrowing at the region of the left vertebral artery. 5. A stent 50% narrowing right greater than left bilateral carotid bifurcation. 6. Questionable origin right posterior cerebral artery. 7. Parapharyngeal course of the right common carotid artery. 8. Thyroid nodule-2.2 cm, correlate with ultrasound. NASCET criteria was used in interpretation of this exam?
[2021-04-17] MEDS ORDERED: ASPIRIN 325 MG TAB PO STA (19:45)
[2021-04-17] MEDS: SODIUM CHLORIDE 0.9% 1,000 ML IV SCH (20:00)
[2021-04-17 22:41] LABS: Glucose,Whole Blood 128 mg/dL (75-99)
[2021-04-17] MEDS: ATORVASTATIN 80 MG TAB PO SCH (23:10)
[2021-04-17] MEDS: HEPARIN SODIUM,PORCINE/PF 5,000 UNIT/0.5 ML SYRINGE SQ SCH (23:10)
[2021-04-17] MEDS: INSULIN DETEMIR (LEVEMIR) 100 UNIT/ML SYR SQ SCH (23:10)
[2021-04-18 06:09] LABS: Glucose,Whole Blood 80 mg/dL (75-99)
[2021-04-18] MEDS: PANTOPRAZOLE 40 MG TABLET PO SCH ×2 (06:28→17:19)
[2021-04-18] MEDS: SODIUM CHLORIDE 0.9% 1,000 ML IV SCH ×2 (06:44→17:17)
[2021-04-18] MEDS: METOPROLOL SUCCINATE (ER) 50 MG TAB.ER.24H PO SCH (09:13)
[2021-04-18] MEDS: CLOPIDOGREL 75 MG TAB PO SCH (09:13)
[2021-04-18] MEDS: ASPIRIN 325 MG TAB PO SCH (09:14)
[2021-04-18] MEDS: CHOLECALCIFEROL 25 MCG (1000 IU) TABLET PO SCH (09:14)
[2021-04-18] MEDS: HEPARIN SODIUM,PORCINE/PF 5,000 UNIT/0.5 ML SYRINGE SQ SCH ×2 (09:14→20:01)
--- NOTE | 2021-04-18 10:53 | US ---
EXAMINATION TYPE: US carotid duplex BILAT DATE OF EXAM: 04/18/2021 COMPARISON: 05/10/2019 CLINICAL HISTORY: TIA. EXAM MEASUREMENTS: RIGHT: Peak Systolic Velocity (PSV) cm/sec ----- Right CCA: 87.7 ----- Right ICA: 125. ----- Right ECA: 88.1 ICA/CCA ratio: 1.4 RIGHT: End Diastole cm/sec ----- Right CCA: 16.9 ----- Right ICA: 7.0 ----- Right ECA: 5.0 LEFT: Peak Systolic Velocity (PSV) cm/sec ----- Left CCA: 93.0 ----- Left ICA: 119 ----- Left ECA: 108.0 ICA/CCA ratio: 1.27 LEFT: End Diastole cm/sec ----- Left CCA: 17.6 ----- Left ICA: 25.6 ----- Left ECA: 12.5 VERTEBRALS (direction of flow): Right Vertebral: Antegrade Left Vertebral: Antegrade Rhythm: Normal No significant velocities seen bilaterally. IMPRESSION: 1. No significant hemodynamic stenosis bilaterally Criteria for Assigning % of Stenosis / Diameter reduction (Estimation based on the indirect measurements of the internal carotid artery velocities (ICA PSV). 1. Normal (no stenosis)=ICA PSV < 125 cm/s: ratio < 2.0: ICA EDV<40 cm/s. 2. Less than 50% stenosis=ICA PSV < 125 cm/s: ratio < 2.0: ICA EDV<40 cm/s. 3. 50 to 69% stenosis=ICA PSV of 125 to 230 cm/s: ration 2.0 ? 4.0: ICA EDV 40-100 cm/s. 4. Greater than 70% stenosis to near occlusion= ICA PSV > 230 cm/s: ratio > 4.0: ICA EDV > 100 cm/s. 5. Near occlusion= ICA PSV velocities may be low or undetectable: variable ratio and ICA EDV. 6. Total occlusion=unable to detect flow.
[2021-04-18 12:01] LABS: Glucose,Whole Blood 121 mg/dL (75-99)
[2021-04-18] MEDS: INSULIN ASPART (NovoLOG) 100 UNIT/ML VIAL SQ SCH ×2 (12:02→17:17)
--- NOTE | 2021-04-18 12:04 | P.CRDCN ---
History of Present Illness History of present illness: HISTORY OF PRESENTING ILLNESS This is a pleasant 70-year-old female past medical history significant for TIA, coronary artery disease status post PCI to the left circumflex in 2008, hyperten vita, type 2 diabetes, dyslipidemia, obesity. She follows in the office with Dr. Jones. Patient presented to the emergency department for evaluation of right-sided face, arm, and leg numbness and tingling that started on 04/16/21. Her symptoms persisted and decided to present to the ER. She denies any chest pain, lightheadedness, dizziness, palpitations, shortness of breath, change in vision, or syncope. Denies symptoms of orthopnea or PND. She states she is compliant with her medication. She is a non-smoker, denies alcohol use. DIAGNOSTICS EKG reveals sinus rhythm, heart rate 68, T wave inversions in lead III, prior EKG similar Telemetry tracings indicate sinus mechanism heart rate 60s. Lexiscan stress test in the office in 10/2020 was negative for reversible ischemia 24-hour Holter monitor 03/2020 revealed sinus mechanism with first degree AV block, no arrhythmia seen. Most recent echocardiogram 07/2018 revealed EF of 55%, mild LVH Carotid ultrasound no significant hemodynamic stenosis bilaterally CT Brain- Slight decrease in casanova-white matter differentiation in the right temporal lobe could be artifactual or secondary to vascular insult Recommend MRI CTA- no complete vascular occlusion seen, mild left M1 MCA segment narrowing, mild narrowing at the beach left vertebral artery Laboratory reviewed, WBC 7.8, hemoglobin 15, platelets 235, sodium 140, potassium 4.6, BUN 25, serum creatinine 1.0, troponin negative 1, COVID-19 PCr negative Current home medications include aspirin 81 mg daily, atorvastatin 80 mg daily, Plavix 75 mg daily, Imdur 30 mg daily, Toprol 50 daily, benazepril 20 mg morning and 10 mg at night REVIEW OF SYSTEMS At the time of my exam: CONSTITUTIONAL: Denies fever or chills. CARDIOVASCULAR: Denies chest pain, shortness of breath, orthopnea, PND or palpitations. RESPIRATORY: Denies cough. GASTROINTESTINAL: Denies abdominal pain, diarrhea, constipation, nausea or vomiting. MUSCULOSKELETAL: Denies myalgias. NEUROLOGIC: + numbness, +tingling, Denies headacbe or weakness. ENDOCRINE: Denies fatigue, weight change, polydipsia or polyurina. GENITOURINARY: Denies burning, hematuria or urgency with micturation. HEMATOLOGIC: Denies history of anemia or bleeding. PHYSICAL EXAMINATION Blood pressure 133/70, heart rate 63, afebrile, maintaining oxygen saturations on room air CONSTITUTIONAL: No apparent distress. HEENT: Head is normocephalic. Pupils are equal, round. Sclerae anicteric. Mucous membranes of the mouth are moist. No JVD. No carotid bruit. CHEST EXAMINATION: Lungs are clear to auscultation. No chest wall tenderness is noted on palpation or with deep breathing. HEART EXAMINATION: Regular rate and rhythm. S1, S2 heard. No murmurs, gallops or rub. ABDOMEN: Soft, nontender. Positive bowel sounds. EXTREMITIES: 2+ peripheral pulses, no lower extremity edema and no calf tenderness. NEUROLOGIC EXAMINATION: Patient is awake, alert and oriented x3. ASSESSMENT Acute onset right-sided face, arm, and leg numbness and tingling History of TIA History of Coronary artery disease status post PCI to the left circumflex in 2008 Hypertension Type 2 diabetes Dyslipidemia PLAN -Lipid Panel -2D echocardiogram -Continue current cardiac medications. If patient's blood pressure increases, recommend increasing Benazepril -Workup per neurology -Will discuss possible loop recorder placement either inpatient vs outpatient Nurse Practitioner note has been reviewed, I agree with a documented findings and plan of care. Patient was seen and examined. Past Medical History Past Medical History: Coronary Artery Disease (CAD), Cancer, CVA/TIA, Diabetes Mellitus, GERD/Reflux, Hypertension, Osteoarthritis (OA) Additional Past Medical History / Comment(s): SKIN CANCER , KIDNEY STONES, diarrhea for 6 weeks couple months ago, urinary leakage History of Any Multi-Drug Resistant Organisms: None Reported Past Surgical History: Adenoidectomy, Section, Cholecystectomy, Heart Catheterization, Heart Catheterization With Stent, Joint Replacement, Orthopedic Surgery, Tonsillectomy, Tubal Ligation Additional Past Surgical History / Comment(s): CATARACT BILATERAL EYE, TOTAL mallorie KNEE replacement, BILATERAL CARPAL TUNNEL RELEASE,C- SECTION X3, 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 stress test in 10/29 Past Anesthesia/Blood Transfusion Reactions: Motion Sickness Date of Last Stent Placement:: 10/2008 Past Psychological History: No Psychological Hx Reported Smoking Status: Never smoker Past Alcohol Use History: None Reported Past Drug Use History: None Reported - Past Family History Son(s) Family Medical History: Deep Vein Thrombosis (DVT) Mother Additional Family Medical History / Comment(s): Alzheimer Disease Father Additional Family Medical History / Comment(s): Passed at age 48 due to unknown medical complications. Brother(s) Family Medical History: Cancer Additional Family Medical History / Comment(s): Pancreatic cancer, at age 62. Medications and Allergies Home Medications Medication Instructions Recorded Confirmed Type Atorvastatin [Lipitor] 80 mg PO HS 07/21/14 04/17/21 History Insulin Glargine,Hum.rec.anlog 30 units SQ HS 07/21/14 04/17/21 History [Lantus Solostar Pen] Metoprolol Succinate [Toprol XL] 50 mg PO DAILY 09/27/15 04/17/21 History Calcium Carbonate [Calcium] 1,200 mg PO DAILY 01/31/19 04/17/21 History Insulin Aspart [NovoLOG Flexpen] See Protocol SQ AC-TID 01/31/19 04/17/21 History Clopidogrel Bisulfate [Plavix] 75 mg PO DAILY #30 tab 05/11/19 04/17/21 Rx Isosorbide Dinitrate 30 mg PO HS 06/03/19 04/17/21 History Aspirin 81 mg PO BID 06/08/19 04/17/21 History Benazepril HCl 10 mg PO HS 04/17/21 04/17/21 History Benazepril HCl 20 mg PO DAILY 04/17/21 04/17/21 History Cholecalciferol (Vitamin D3) 125 mcg PO DAILY 04/17/21 04/17/21 History [Vitamin D3 (125 MCG = 5,000 IU)] Empagliflozin [Jardiance] 25 mg PO DAILY 04/17/21 04/17/21 History Pantoprazole Sodium [Protonix] 40 mg PO BID 04/17/21 04/17/21 History Allergies Allergy/AdvReac Type Severity Reaction Status Date / Time No Known Allergies Allergy Verified 04/17/21 18:11 Physical Exam Vitals: Vital Signs Temp Pulse Pulse Resp BP BP Pulse Ox 04/18/21 07:15 97.5 F L 63 14 133/78 99 04/18/21 03:20 64 17 112/66 98 04/17/21 23:10 97 F L 71 17 127/74 97 04/17/21 21:40 98.1 F 63 17 150/78 98 04/17/21 19:01 69 18 149/79 98 04/17/21 15:47 98.2 F 120 H 16 152/69 97 Intake and Output 04/17/21 04/18/21 04/18/21 22:59 06:59 14:59 Other: Voiding Method Toilet Toilet # Voids 1 2 Weight 92.986 kg 94 kg Results 04/17/21 16:44 04/17/21 16:44 Cardiac Enzymes 04/17/21 04/17/21 Range/Units 16:44 16:44 AST 30 (14-36) U/L Troponin I <0.012 (0.000-0.034) ng/mL Coagulation 04/17/21 Range/Units 16:44 PT 10.3 (9.0-12.0) sec APTT 24.0 (22.0-30.0) sec CBC 04/17/21 Range/Units 16:44 WBC 7.8 (3.8-10.6) k/uL RBC 5.27 (3.80-5.40) m/uL Hgb 15.7 (11.4-16.0) gm/dL Hct 47.6 H (34.0-46.0) % Plt Count 235 (150-450) k/uL Comprehensive Metabolic Panel 04/17/21 Range/Units 16:44 Sodium 140 (137-145) mmol/L Potassium 4.6 (3.5-5.1) mmol/L Chloride 107 (98-107) mmol/L Carbon Dioxide 23 (22-30) mmol/L BUN 25 H (7-17) mg/dL Creatinine 1.02 (0.52-1.04) mg/dL Glucose 129 H (74-99) mg/dL Calcium 10.3 H (8.4-10.2) mg/dL AST 30 (14-36) U/L ALT 21 (4-34) U/L Alkaline Phosphatase 88 (38-126) U/L Total Protein 7.2 (6.3-8.2) g/dL Albumin 3.9 (3.5-5.0) g/dL Current Medications Generic Name Dose Route Start Last Admin Trade Name Freq PRN Reason Stop Dose Admin Aspirin 325 mg 04/18/21 09:00 04/18/21 09:14 Aspirin 325 Mg Tab PO 325 mg DAILY PAOLA Administration Atorvastatin Calcium 80 mg 04/17/21 22:00 04/17/21 23:10 Atorvastatin 80 Mg Tab PO 80 mg HS PAOLA Administration Cholecalciferol 125 mcg 04/18/21 09:00 04/18/21 09:14 Cholecalciferol 25 Mcg (1000 Iu) Tablet PO 125 mcg DAILY PAOLA Administration Clopidogrel Bisulfate 75 mg 04/18/21 09:00 04/18/21 09:13 Clopidogrel 75 Mg Tab PO 75 mg DAILY PAOLA Administration Heparin Sodium (Porcine) 5,000 unit 04/17/21 22:00 04/18/21 09:14 Heparin Sodium,Porcine/Pf 5,000 Unit/0.5 Ml Syringe SQ 5,000 unit Q12HR PAOLA Administration Sodium Chloride 1,000 mls @ 100 mls/hr 04/17/21 19:45 04/18/21 06:44 Saline 0.9% IV Not Given .Q10H PAOLA Insulin Detemir 30 unit 04/17/21 22:30 04/17/21 23:10 Insulin Detemir (Levemir) 100 Unit/Ml Syr SQ 30 unit HS PAOLA Administration Isosorbide Dinitrate 30 mg 04/18/21 21:00 Isosorbide Dinitrate 10 Mg Tab PO HS PAOLA Metoprolol Succinate 50 mg 04/18/21 09:00 04/18/21 09:13 Metoprolol Succinate (Er) 50 Mg Tab.Er.24h PO 50 mg DAILY PAOLA Administration Pantoprazole Sodium 40 mg 04/18/21 07:30 04/18/21 06:28 Pantoprazole 40 Mg Tablet PO 40 mg AC-BID PAOLA Administration Intake and Output 04/17/21 04/18/21 04/18/21 22:59 06:59 14:59 Other: Voiding Method Toilet Toilet # Voids 1 2 Weight 92.986 kg 94 kg 04/17/21 16:44 04/17/21 16:44
--- NOTE | 2021-04-18 12:08 | P.HPIM ---
History of Present Illness This is a pleasant 70 years old female with past medical history of Coronary Artery Disease (CAD), Cancer, CVA/TIA, Diabetes Mellitus, GERD, Hypertension, Osteoarthritis , KIDNEY STONES, diarrhea for 6 weeks couple months ago, urinary leakage Patient presents with right-sided numbness with intermittent headache Patient presents because of numbness on the right side of the face, arm and her leg for last night with no weakness. Associated only with mild headache. No smoking, alcohol or illicit drugs. No previous vascular surgery her neurologist is Dr. Villafuerte but she only referred to him once after last TIA Patient had a similar attack 2 years ago and diagnosed with TIA. She is currently on aspirin and Plavix, aspirin and Plavix because of TIA last time Vitals are stable. Labs including CBC, INR, BMP and liver enzymes are unremarkable. Sodium 140, potassium 4.6 and calcium 10.3. Coronavirus not detected CTA of the brain showing no complete vascular occlusion, mild to moderate right MCA significant narrowing, mild left MCA significant narrowing, mild narrowing in the region of the left vertebral artery, a stent 50% narrowing right greater than left bilateral carotid bifurcation, questionable origin right posterior cerebral artery. Left Thyroid nodule 2.[address] of brain: Slight decrease in the casanova-white matter differentiation in the right temporal lobe could be artificial or could be secondary to vascular insult. Recommend correlate with brain MRI Chest x-ray: No significant change, COPD EKG showed normal sinus rhythm at [address] T changes, QTC is 395 Patient is on aspirin 81 mg and Plavix at home, aspirin increased to 325 mg and emergency room Review of Systems CONSTITUTIONAL: No fever, no malaise, no fatigue. HEENT: No recent visual problems or hearing problems. Denied any sore throat. CARDIOVASCULAR: No orthopnea, PND, no palpitations, no syncope. PULMONARY: No shortness of breath, no cough, no hemoptysis. GASTROINTESTINAL: No diarrhea, no nausea, no vomiting, no abdominal pain. Normoactive bowel sounds. NEUROLOGICAL: No headaches, no weakness, no numbness. HEMATOLOGICAL: Denies any bleeding or petechiae. GENITOURINARY: Denies any burning micturition, frequency, or urgency. MUSCULOSKELETAL/RHEUMATOLOGICAL: Denies any joint pain, swelling, or any muscle pain. ENDOCRINE: Denies any polyuria or polydipsia. Past Medical History Past Medical History: Coronary Artery Disease (CAD), Cancer, CVA/TIA, Diabetes Mellitus, GERD/Reflux, Hypertension, Osteoarthritis (OA) Additional Past Medical History / Comment(s): SKIN CANCER , KIDNEY STONES, diarrhea for 6 weeks couple months ago, urinary leakage History of Any Multi-Drug Resistant Organisms: None Reported Past Surgical History: Adenoidectomy, Section, Cholecystectomy, Heart Catheterization, Heart Catheterization With Stent, Joint Replacement, Orthopedic Surgery, Tonsillectomy, Tubal Ligation Additional Past Surgical History / Comment(s): CATARACT BILATERAL EYE, TOTAL mallorie KNEE replacement, BILATERAL CARPAL TUNNEL RELEASE,C- SECTION X3, 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 stress test in 10/29 Past Anesthesia/Blood Transfusion Reactions: Motion Sickness Date of Last Stent Placement:: 10/2008 Past Psychological History: No Psychological Hx Reported Smoking Status: Never smoker Past Alcohol Use History: None Reported Past Drug Use History: None Reported - Past Family History Son(s) Family Medical History: Deep Vein Thrombosis (DVT) Mother Additional Family Medical History / Comment(s): Alzheimer Disease Father Additional Family Medical History / Comment(s): Passed at age 48 due to unknown medical complications. Brother(s) Family Medical History: Cancer Additional Family Medical History / Comment(s): Pancreatic cancer, at age 62. Medications and Allergies Home Medications Medication Instructions Recorded Confirmed Type Atorvastatin [Lipitor] 80 mg PO HS 07/21/14 04/17/21 History Insulin Glargine,Hum.rec.anlog 30 units SQ HS 07/21/14 04/17/21 History [Lantus Solostar Pen] Metoprolol Succinate [Toprol XL] 50 mg PO DAILY 09/27/15 04/17/21 History Calcium Carbonate [Calcium] 1,200 mg PO DAILY 01/31/19 04/17/21 History Insulin Aspart [NovoLOG Flexpen] See Protocol SQ AC-TID 01/31/19 04/17/21 History Clopidogrel Bisulfate [Plavix] 75 mg PO DAILY #30 tab 05/11/19 04/17/21 Rx Isosorbide Dinitrate 30 mg PO HS 06/03/19 04/17/21 History Aspirin 81 mg PO BID 06/08/19 04/17/21 History Benazepril HCl 10 mg PO HS 04/17/21 04/17/21 History Benazepril HCl 20 mg PO DAILY 04/17/21 04/17/21 History Cholecalciferol (Vitamin D3) 125 mcg PO DAILY 04/17/21 04/17/21 History [Vitamin D3 (125 MCG = 5,000 IU)] Empagliflozin [Jardiance] 25 mg PO DAILY 04/17/21 04/17/21 History Pantoprazole Sodium [Protonix] 40 mg PO BID 04/17/21 04/17/21 History Allergies Allergy/AdvReac Type Severity Reaction Status Date / Time No Known Allergies Allergy Verified 04/17/21 18:11 Physical Exam Vitals: Vital Signs Temp Pulse Pulse Resp BP BP Pulse Ox 04/18/21 03:20 64 17 112/66 98 04/17/21 23:10 97 F L 71 17 127/74 97 04/17/21 21:40 98.1 F 63 17 150/78 98 04/17/21 19:01 69 18 149/79 98 04/17/21 15:47 98.2 F 120 H 16 152/69 97 Intake and Output 04/17/21 04/18/21 04/18/21 22:59 06:59 14:59 Other: Voiding Method Toilet Toilet # Voids 1 2 Weight 92.986 kg 94 kg GENERAL: The patient is alert and oriented x3, not in any acute distress. Well developed, well nourished. HEENT: Pupils are round and equally reacting to light. EOMI. No scleral icterus. No conjunctival pallor. Normocephalic, atraumatic. No pharyngeal erythema. No thyromegaly. CARDIOVASCULAR: S1 and S2 present. No murmurs, rubs, or gallops. PULMONARY: Chest is clear to auscultation, no wheezing or crackles. ABDOMEN: Soft, nontender, nondistended, normoactive bowel sounds. No palpable organomegaly. MUSCULOSKELETAL: No joint swelling or deformity. EXTREMITIES: No cyanosis, clubbing, or pedal edema. NEUROLOGICAL: Gross neurological examination did not reveal any focal deficits. SKIN: No rashes. No petechiae Results CBC & Chem 7: 04/17/21 16:44 04/17/21 16:44 Labs: Abnormal Lab Results - Last 24 Hours (Table) 04/17/21 04/17/21 04/17/21 Range/Units 16:44 16:44 22:40 Hct 47.6 H (34.0-46.0) % BUN 25 H (7-17) mg/dL Glucose 129 H (74-99) mg/dL POC Glucose (mg/dL) 128 H (75-99) mg/dL Calcium 10.3 H (8.4-10.2) mg/dL Thrombosis Risk Factor Assmnt - Choose All That Apply Any of the Below Risk Factors Present?: Yes Each Factor Represents 1 point: Obesity (BMI >25) Each Risk Factor Represents 2 Points: Age 61-74 years Other congenital or acquired thrombophilia - If yes, enter type in comment: Yes Thrombosis Risk Factor Assessment Total Risk Factor Score: 3 Thrombosis Risk Factor Assessment Level: Moderate Risk Assessment and Plan Assessment: Right sided numbness, possible TIA versus stroke Left thyroid nodule 2.2 cm Hypertension History of coronary artery disease Diabetes mellitus History of GERD History of CVA/TIA History of osteoarthritis Plan: This is a pleasant 70 years old female who presents with chest pain Abnormal CT of the brain and CT of the brain are noted. Continue with aspirin and Plavix Continue with normal saline at 100 mL per hour follow-up echocardiogram Thyroid Function test. Patient informed about her thyroid nodule and the need to follow-up with Dr. Hernandez, she already has an appointment on 05/01 Neurological consult Vascular surgery consults Labs and medication were reviewed.. Continue same treatment. Continue with symptomatic treatment. Resume home medication. Monitor lytes and vitals. DVT and GI prophylaxis. Further recommendations depends on the clinical course of the patient DVT prophylaxis: Subcutaneous heparin GI Prophylaxis: Ppi PT/OT: Pending Prognosis is guarded
[2021-04-18 12:35] LABS: Basophils % (A) 0 %; Eosinophils # (A) 0.1 k/uL (0-0.7); Eosinophils % (A) 2 %; Lymphocytes % (A) 30 %; MCH 30.1 pg (25.0-35.0); MCV 88.6 fL (80.0-100.0); Mean Platelet Volume 7.1; Monocytes # (A) 0.4 k/uL (0-1.0); Monocytes % (A) 6 %; Neutrophils # (A) 3.9 k/uL (1.3-7.7); Neutrophils % (A) 60 %; Platelet Count 226 k/uL (150-450); RBC 4.97 m/uL (3.80-5.40); RDW 13.2 % (11.5-15.5); WBC 6.5 k/uL (3.8-10.6)
--- NOTE | 2021-04-18 12:46 | P.GSCN ---
History of Present Illness Consult date: 04/18/21 Reason for Consult: TIA, carotid stenosis Requesting physician: Ervin E Sheet History of present illness: This is a 70-year-old female with past medical history significant for TIA, coronary artery disease status post PCI, hypertension, type 2 diabetes, dyslipidemia, and obesity. Patient presented to the emergency department yesterday with complaints of right facial and right extremity numbness and tingling that had started on 04/16/2021 the evening. She states that it persisted through the next day into the afternoon and with her history of TIA she was concerned and came to the emergency department for further evaluation. She states she never really had weakness just that she felt off. She did not fall, no visual disturbances, no speech disturbances and no other reported focal deficits. She had a CT of the brain that showed slight decrease in casanova-white matter differentiation in the right temporal lobe could be artifactual or could be secondary to vascular insult recommend correlation with brain MRI. CT angiogram head and neck with findings of no complete vascular occlusion. Mild to moderate right M1 MCA segment narrowing, mid left M1 MCA segment narrowing. Mild narrowing at the region of the left vertebral artery. A stent 50% narrowing right greater than left bilateral carotid bifurcation, questionable origin right posterior cerebral artery, parapharyngeal course of the right common artery, thyroid nodule 2.2 cm correlate with ultrasound. Vascular surgery was consulted regarding possible carotid stenosis. Review of Systems A 14 point review of systems was completed all pertinent positives and negatives as stated in the HPI. Past Medical History Past Medical History: Coronary Artery Disease (CAD), Cancer, CVA/TIA, Diabetes Mellitus, GERD/Reflux, Hypertension, Osteoarthritis (OA) Additional Past Medical History / Comment(s): SKIN CANCER , KIDNEY STONES, diarrhea for 6 weeks couple months ago, urinary leakage History of Any Multi-Drug Resistant Organisms: None Reported Past Surgical History: Adenoidectomy, Section, Cholecystectomy, Heart Catheterization, Heart Catheterization With Stent, Joint Replacement, Orthopedic Surgery, Tonsillectomy, Tubal Ligation Additional Past Surgical History / Comment(s): CATARACT BILATERAL EYE, TOTAL mallorie KNEE replacement, BILATERAL CARPAL TUNNEL RELEASE,C- SECTION X3, 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 stress test in 10/29 Past Anesthesia/Blood Transfusion Reactions: Motion Sickness Date of Last Stent Placement:: 10/2008 Past Psychological History: No Psychological Hx Reported Smoking Status: Never smoker Past Alcohol Use History: None Reported Past Drug Use History: None Reported - Past Family History Son(s) Family Medical History: Deep Vein Thrombosis (DVT) Mother Additional Family Medical History / Comment(s): Alzheimer Disease Father Additional Family Medical History / Comment(s): Passed at age 48 due to unknown medical complications. Brother(s) Family Medical History: Cancer Additional Family Medical History / Comment(s): Pancreatic cancer, at age 62. Medications and Allergies Home Medications Medication Instructions Recorded Confirmed Type Atorvastatin [Lipitor] 80 mg PO HS 07/21/14 04/17/21 History Insulin Glargine,Hum.rec.anlog 30 units SQ HS 07/21/14 04/17/21 History [Lantus Solostar Pen] Metoprolol Succinate [Toprol XL] 50 mg PO DAILY 09/27/15 04/17/21 History Calcium Carbonate [Calcium] 1,200 mg PO DAILY 01/31/19 04/17/21 History Insulin Aspart [NovoLOG Flexpen] See Protocol SQ AC-TID 01/31/19 04/17/21 Histo ry Clopidogrel Bisulfate [Plavix] 75 mg PO DAILY #30 tab 05/11/19 04/17/21 Rx Isosorbide Dinitrate 30 mg PO HS 06/03/19 04/17/21 History Aspirin 81 mg PO BID 06/08/19 04/17/21 History Benazepril HCl 10 mg PO HS 04/17/21 04/17/21 History Benazepril HCl 20 mg PO DAILY 04/17/21 04/17/21 History Cholecalciferol (Vitamin D3) 125 mcg PO DAILY 04/17/21 04/17/21 History [Vitamin D3 (125 MCG = 5,000 IU)] Empagliflozin [Jardiance] 25 mg PO DAILY 04/17/21 04/17/21 History Pantoprazole Sodium [Protonix] 40 mg PO BID 04/17/21 04/17/21 History Allergies Allergy/AdvReac Type Severity Reaction Status Date / Time No Known Allergies Allergy Verified 04/17/21 18:11 Surgical - Exam Vital Signs Temp Pulse Resp BP Pulse Ox 98.2 F 120 H 16 152/69 97 04/17/21 15:47 04/17/21 15:47 04/17/21 15:47 04/17/21 15:47 04/17/21 15:47 General appearance: The patient is alert, oriented, appears in no acute distress. HET: Head is normocephalic and atraumatic. Pupils are equal and reactive. Neck: Supple without lymphadenopathy. Trachea midline. Heart: S1 S2. Regular rate and rhythm. Lungs: Clear to auscultation. Abdomen: Soft, nontender, nondistended Extremities: Normal skin color and turgor. No cyanosis, rash, ulceration, clubbing, or edema. Radial and pedal pulses are 2/4 bilaterally. Neurological: No focal deficits. Strength and sensation are grossly intact. Results - Labs 04/18/21 12:10 04/18/21 12:10 Abnormal Lab Results - Last 24 Hours (Table) 04/17/21 04/17/21 04/17/21 Range/Units 16:44 16:44 22:40 Hct 47.6 H (34.0-46.0) % BUN 25 H (7-17) mg/dL Glucose 129 H (74-99) mg/dL POC Glucose (mg/dL) 128 H (75-99) mg/dL Calcium 10.3 H (8.4-10.2) mg/dL 04/18/21 Range/Units 11:54 Hct (34.0-46.0) % BUN (7-17) mg/dL Glucose (74-99) mg/dL POC Glucose (mg/dL) 121 H (75-99) mg/dL Calcium (8.4-10.2) mg/dL Diabetes panel 04/17/21 Range/Units 16:44 Sodium 140 (137-145) mmol/L Potassium 4.6 (3.5-5.1) mmol/L Chloride 107 (98-107) mmol/L Carbon Dioxide 23 (22-30) mmol/L BUN 25 H (7-17) mg/dL Creatinine 1.02 (0.52-1.04) mg/dL Glucose 129 H (74-99) mg/dL Calcium 10.3 H (8.4-10.2) mg/dL AST 30 (14-36) U/L ALT 21 (4-34) U/L Alkaline Phosphatase 88 (38-126) U/L Total Protein 7.2 (6.3-8.2) g/dL Albumin 3.9 (3.5-5.0) g/dL Calcium panel 04/17/21 Range/Units 16:44 Calcium 10.3 H (8.4-10.2) mg/dL Albumin 3.9 (3.5-5.0) g/dL Pituitary panel 04/17/21 Range/Units 16:44 Sodium 140 (137-145) mmol/L Potassium 4.6 (3.5-5.1) mmol/L Chloride 107 (98-107) mmol/L Carbon Dioxide 23 (22-30) mmol/L BUN 25 H (7-17) mg/dL Creatinine 1.02 (0.52-1.04) mg/dL Glucose 129 H (74-99) mg/dL Calcium 10.3 H (8.4-10.2) mg/dL Adrenal panel 04/17/21 Range/Units 16:44 Sodium 140 (137-145) mmol/L Potassium 4.6 (3.5-5.1) mmol/L Chloride 107 (98-107) mmol/L Carbon Dioxide 23 (22-30) mmol/L BUN 25 H (7-17) mg/dL Creatinine 1.02 (0.52-1.04) mg/dL Glucose 129 H (74-99) mg/dL Calcium 10.3 H (8.4-10.2) mg/dL Total Bilirubin 1.0 (0.2-1.3) mg/dL AST 30 (14-36) U/L ALT 21 (4-34) U/L Alkaline Phosphatase 88 (38-126) U/L Total Protein 7.2 (6.3-8.2) g/dL Albumin 3.9 (3.5-5.0) g/dL - Imaging Comments: Carotid ultrasound right ICA PSV 125, ICA/CCA ratio 1.4 left ICA PSV 119, ICA/ CCA ratio 1.27. No significant hemodynamic stenosis bilaterally Assessment and Plan Assessment: 1. Right facial and upper extremity numbness and tingling 2. No significant hemodynamic internal carotid stenosis bilaterally 3. History of TIA 4. History of coronary artery disease 5. History of type 2 diabetes mellitus 6. History of hypertension and hyperlipidemia Plan: 1. CT angiogram head and neck reviewed 2. Carotid ultrasound ordered and reviewed with no hemodynamic stenosis bilaterally 3. Continue with recommendations from neurology 4. No indication for any vascular surgical intervention, patient may follow-up on an outpatient basis for carotid surveillance as needed Thank you for this consultation, and allowing us take part in the plan of care of your patient during his hospital stay The impression and plan of care has been dictated as directed. I performed a history and examination of this patient, discussed the same with the dictator. I agree with the dictator's note ,documented as a scribe. Any additional findings or plans will be noted.
[2021-04-18 12:48] LABS: African American GFR (CKD) >90 (>60 ml/min/1.73 sqM); Anion Gap 6 mmol/L; Blood Urea Nitrogen 18 mg/dL (7-17); Calcium 9.3 mg/dL (8.4-10.2); Carbon Dioxide 25 mmol/L (22-30); Chloride 107 mmol/L (98-107); Glucose 123 mg/dL (74-99); Non-African American GFR(CKD) 81 (>60 ml/min/1.73 sqM); Potassium 4.3 mmol/L (3.5-5.1); Sodium 138 mmol/L (137-145)
--- NOTE | 2021-04-18 13:56 | P.CNNES ---
History of Present Illness Consult date: 04/18/21 Requesting physician: Serge Gong Reason for Consult: CVA History of Present Illness: Patient is a 70-year-old right-handed female came to the hospital yesterday at 3:33 PM for recurrent paresthesias right side of the body. Patient states her symptoms started on Thursday night, 2 days prior to arrival. She would develop numbness and tingling sensation in right side of the face, right arm and right leg. The symptoms would come and go. She also felt like her arm was slightly weak, not as strong. She felt fuzzy headed. Denied any facial droop, slurred speech, or deviation of the tongue when she looked herself in the mirror. Denies any visual symptoms. Her balance is all right although she felt the r ight side was not as strong. Patient's vitals on arrival blood pressure 152/69, pulse rate 120, temperature 98.2. CT head showed slight decrease in casanova-white matter differentiation in the right temporal lobe could be artifactual or could be secondary to vascular insult. Recommend correlation with brain MRI. Chronic changes. CTA of head and neck showed no vascular occlusion. Mild to moderate right M1 MCA segment narrowing. Mild left M1 MCA segment narrowing. Mild narrowing at the origin of the left vertebral artery. There is less than 50% narrowing right greater than left involving carotid bifurcation. Internal carotid arteries are patent. Thyroid nodule. Will defer thyroid issue to IM. Chest x-ray showed no acute process. EKG with normal sinus rhythm. Patient has been seen by myself on 06/03/2019, when she has presented with recurrent TIA with numbness of right side of the body. Symptoms were suggestive of possible small vessel lacunar syndrome producing recurrent ischemic symptoms, perhaps in the left thalamus. Patient was on Plavix prior to that admission and aspirin was added to the regimen. Patient still taking dual antiplatelet medications as this time including Plavix 75 mg and aspirin 81 mg twice a day. Patient's blood test shows normal CBC, PT/PTT, normal chem 20. Calcium 10.3, coronavirus PCR negative. Patient has history of diabetes for last 20 years, which is very well controlled. She has never smoked. Patient says that she has blood test performed by her primary physician on 03/27/2021, in which her A1c was 6.3. Her lipid panel on 03/27/2021 was cholesterol 118, LDL 52, HDL 49 and triglycerides 87, all completely normal. Review of Systems Completely unremarkable except as mentioned above. Patient does have history of bilateral knee surgeries. Past Medical History Past Medical History: Coronary Artery Disease (CAD), Cancer, CVA/TIA, Diabetes Mellitus, GERD/Reflux, Hypertension, Osteoarthritis (OA) Additional Past Medical History / Comment(s): SKIN CANCER , KIDNEY STONES, diarrhea for 6 weeks couple months ago, urinary leakage History of Any Multi-Drug Resistant Organisms: None Reported Past Surgical History: Adenoidectomy, Section, Cholecystectomy, Heart Catheterization, Heart Catheterization With Stent, Joint Replacement, Orthopedic Surgery, Tonsillectomy, Tubal Ligation Additional Past Surgical History / Comment(s): CATARACT BILATERAL EYE, TOTAL mallorie KNEE replacement, BILATERAL CARPAL TUNNEL RELEASE,C- SECTION X3, 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 stress test in 10/29 Past Anesthesia/Blood Transfusion Reactions: Motion Sickness Date of Last Stent Placement:: 10/2008 Past Psychological History: No Psychological Hx Reported Smoking Status: Never smoker Past Alcohol Use History: None Reported Past Drug Use History: None Reported - Past Family History Son(s) Family Medical History: Deep Vein Thrombosis (DVT) Mother Additional Family Medical History / Comment(s): Alzheimer Disease Father Additional Family Medical History / Comment(s): Passed at age 48 due to unknown medical complications. Brother(s) Family Medical History: Cancer Additional Family Medical History / Comment(s): Pancreatic cancer, at age 62. Medications and Allergies Home Medications Medication Instructions Recorded Confirmed Type Atorvastatin [Lipitor] 80 mg PO HS 07/21/14 04/17/21 History Insulin Glargine,Hum.rec.anlog 30 units SQ HS 07/21/14 04/17/21 History [Lantus Solostar Pen] Metoprolol Succinate [Toprol XL] 50 mg PO DAILY 09/27/15 04/17/21 History Calcium Carbonate [Calcium] 1,200 mg PO DAILY 01/31/19 04/17/21 History Insulin Aspart [NovoLOG Flexpen] See Protocol SQ AC-TID 01/31/19 04/17/21 History Clopidogrel Bisulfate [Plavix] 75 mg PO DAILY #30 tab 05/11/19 04/17/21 Rx Isosorbide Dinitrate 30 mg PO HS 06/03/19 04/17/21 History Aspirin 81 mg PO BID 06/08/19 04/17/21 History Benazepril HCl 10 mg PO HS 04/17/21 04/17/21 History Benazepril HCl 20 mg PO DAILY 04/17/21 04/17/21 History Cholecalciferol (Vitamin D3) 125 mcg PO DAILY 04/17/21 04/17/21 History [Vitamin D3 (125 MCG = 5,000 IU)] Empagliflozin [Jardiance] 25 mg PO DAILY 04/17/21 04/17/21 History Pantoprazole Sodium [Protonix] 40 mg PO BID 04/17/21 04/17/21 History Allergies Allergy/AdvReac Type Severity Reaction Status Date / Time No Known Allergies Allergy Verified 04/17/21 18:11 Physical Examination - Vital Signs Vital Signs: Vital Signs Temp Pulse Pulse Resp BP BP Pulse Ox 04/18/21 07:15 97.5 F L 63 14 133/78 99 04/18/21 03:20 64 17 112/66 98 04/17/21 23:10 97 F L 71 17 127/74 97 04/17/21 21:40 98.1 F 63 17 150/78 98 04/17/21 19:01 69 18 149/79 98 04/17/21 15:47 98.2 F 120 H 16 152/69 97 Intake and Output 04/17/21 04/18/21 04/18/21 22:59 06:59 14:59 Other: Voiding Method Toilet Toilet # Voids 1 2 Weight 92.986 kg 94 kg Patient is an elderly female, very pleasant, in no acute distress. Patient is alert awake oriented to time place and person. Speech and language functions are normal. Attention, concentration and fund of knowledge is adequate. On cranial examination, pupils are probably equal (although the right pupil appeared minimally larger at times), both are round and reacting to light, visual jerome are full on confrontation, with no neglect, extraocular muscles are intact with no nystagmus. Face is symmetric, tongue protrudes to the midline. Palatal elevation and sensation normal, hearing and shoulder shrug normal, facial sensation normal. Shoulder shrug normal. On muscle strength testing, there is no pronator drift and the strength is normal in arms and legs distally and proximally. Deep tendon reflexes are symmetric, 1 in the upper extremities, 2 in the lower extremities and plantars downgoing bilaterally. Sensory to touch is equal with no neglect on double simultaneous stimulation. Cerebellar function showed no ataxia for [id number] testing. No dysdiadochokinesia. Tone and bulk of muscles normal. Gait normal. On general examination, there is no carotid bruit or murmur, S1-S2 audible. Abdomen is soft nontender. Chest is clear. Peripheral pulses are present. No edema. Results - Laboratory Findings CBC and BMP: 04/18/21 12:10 04/18/21 12:10 Abnormal Lab Findings: Abnormal Labs 04/17/21 04/17/21 04/17/21 16:44 16:44 22:40 Hct 47.6 H BUN 25 H Glucose 129 H POC Glucose (mg/dL) 128 H Calcium 10.3 H Assessment and Plan Assessment: * Recurrent paresthesias involving right side the body involving face arm and leg. Her symptoms are are suggestive of possible lacunar symptoms, perhaps in the left thalamic region. * Hypertension * Diabetes, well controlled * Hyperlipidemia, well controlled * Obesity Plan: * Patient's CTA of head and neck was reviewed. Vascular surgery has seen the patient. Carotid Doppler revealed no stenosis. * Await hemoglobin A1c, lipid panel, B12, folate. * Await 2-D echo. * Patient's current neurological examination is normal. * If the B12 is normal, would suggest switching from Plavix to Brilinta. * Follow up with neurologist in 2-3 weeks after discharge. * Continue neuro checks. * Telemetry monitoring so far showing sinus rhythm, with sinus bradycardia in 40s, some PVCs and PACs. No other arrhythmia.
[2021-04-18 14:26] LABS: Chol/HDL Ratio 2.66 Ratio; HDL Cholesterol 45.1 mg/dL (40.00-60.00); LDL Cholesterol,Calculated 57.7 mg/dL (0.0-131.0); Triglycerides 86.2 mg/dL (0.00-149.00); VLDL Calculation 17.24 mg/dL (5.00-40.00)
[2021-04-18 16:51] LABS: Glucose,Whole Blood 110 mg/dL (75-99)
--- NOTE | 2021-04-18 17:05 | ECHOF ---
Referral Reason:Thrombus MEASUREMENTS -------- HEIGHT: 157.5 cm WEIGHT: 93.9 kg BP: 112/66 RVIDd: 2.6 cm (< 3.3) IVSd: 1.0 cm (0.6 - 1.1) LVIDd: 5.0 cm (3.9 - 5.3) LVPWd: 1.2 cm (0.6 - 1.1) IVSs: 1.8 cm LVIDs: 2.9 cm LVPWs: 1.4 cm LA Diam: 3.9 cm (2.7 - 3.8) Ao Diam: 3.1 cm (2.0 - 3.7) AV Cusp: 2.1 cm (1.5 - 2.6) MV EXCURSION: 17.701 mm (> 18.000) MV EF SLOPE: 112 mm/s (70 - 150) EPSS: 0.2 cm MV E Jagdeep: 1.10 m/s MV DecT: 184 ms MV A Jagdeep: 0.97 m/s MV E/A Ratio: 1.13 AR PHT: 745 ms RAP: 5.00 mmHg RVSP: 30.27 mmHg FINDINGS -------- Sinus rhythm. This was a technically adequate study. The left ventricular size is normal. There is borderline concentric left ventricular hypertrophy. Overall left ventricular systolic function is normal with, an EF between 60 - 65 %. The right ventricle is normal in size. Normal LA size by volume 22+/-6 ml/m2. The right atrium is normal in size. Interatrial and interventricular septum intact. There is mild aortic regurgitation. The mitral valve leaflets are mildly thickened. Mild mitral annular calcification present. Mild m itral regurgitation is present. Mild thickening of the anterior mitral valve leaflet. There is mild pulmonary hypertension. The right ventricular systolic pressure, as measured by Doppl er, is 30.27mmHg. Trace/mild (physiologic) pulmonic regurgitation. The aortic root size is normal. Normal inferior vena cava with normal inspiratory collapse consistent with estimated right atrial pre ssure of 5 mmHg. There is no pericardial effusion. CONCLUSIONS -------- 1. The left ventricular size is normal. 2. There is borderline concentric left ventricular hypertrophy. 3. Overall left ventricular systolic function is normal with, an EF between 60 - 65 %. 4. There is mild aortic regurgitation. 5. The mitral valve leaflets are mildly thickened. 6. Mild mitral annular calcification present. 7. Mild mitral regurgitation is present. 8. Mild thickening of the anterior mitral valve leaflet. 9. There is mild pulmonary hypertension. 10. Trace/mild (physiologic) pulmonic regurgitation. 11. There is no pericardial effusion. [employer] SUPERVISOR: Kathleen Fields RDCS
[2021-04-18] MEDS: ATORVASTATIN 80 MG TAB PO SCH (20:01)
[2021-04-18 20:44] LABS: Glucose,Whole Blood 100 mg/dL (75-99)
[2021-04-18] MEDS: INSULIN DETEMIR (LEVEMIR) 100 UNIT/ML SYR SQ SCH (20:57)
[2021-04-18] MEDS ORDERED: ISOSORBIDE DINITRATE 10 MG TAB PO SCH (21:00)
[2021-04-19] MEDS: SODIUM CHLORIDE 0.9% 1,000 ML IV SCH ×2 (02:40→12:33)
[2021-04-19 06:24] LABS: Glucose,Whole Blood 102 mg/dL (75-99)
[2021-04-19] MEDS: INSULIN ASPART (NovoLOG) 100 UNIT/ML VIAL SQ SCH ×2 (06:25→12:33)
[2021-04-19] MEDS: PANTOPRAZOLE 40 MG TABLET PO SCH (06:45)
[2021-04-19] MEDS: CHOLECALCIFEROL 25 MCG (1000 IU) TABLET PO SCH (08:36)
[2021-04-19] MEDS: METOPROLOL SUCCINATE (ER) 50 MG TAB.ER.24H PO SCH (08:36)
[2021-04-19] MEDS: ASPIRIN 325 MG TAB PO SCH (08:36)
[2021-04-19] MEDS: CLOPIDOGREL 75 MG TAB PO SCH (08:37)
[2021-04-19] MEDS: HEPARIN SODIUM,PORCINE/PF 5,000 UNIT/0.5 ML SYRINGE SQ SCH (08:37)
[2021-04-19] MEDS ORDERED: EZETIMIBE 10 MG TAB PO SCH (09:30)
[2021-04-19] MEDS ORDERED: CYANOCOBALAMIN 1,000 MCG/ML 1 ML VIAL IM ONE (10:15)
[2021-04-19] MEDS ORDERED: TICAGRELOR 90 MG TAB PO SCH (10:15)
[2021-04-19 12:21] LABS: Glucose,Whole Blood 133 mg/dL (75-99)
--- NOTE | 2021-04-19 13:06 | P.PN ---
Subjective This is a pleasant 70-year-old female past medical history significant for TIA, coronary artery disease status post PCI to the left circumflex in 2008, hypertension, type 2 diabetes, dyslipidemia, obesity. She follows in the office with Dr. Jones. Patient presented to the emergency department for evaluation of right-sided face, arm, and leg numbness and tingling that started on 04/16/21. Patient seen and examined at bedside, no acute distress. Her symptoms never resolved. Echocardiogram revealed EF of 6065 percent, mild aortic regurgitat ion, mild maturity, mild pulmonary hypertension. Laboratory data reviewed. Hgb A1c was 6.8, triglycerides 86, cholesterol 120, LDL 57, HDL 45. PHYSICAL EXAMINATION Blood pressure 113/69, heart rate 63, afebrile, maintaining her saturations on room air CONSTITUTIONAL: No apparent distress. HEENT: Neck supple No JVD. CHEST EXAMINATION: Lungs are clear to auscultation. No chest wall tenderness is noted on palpation or with deep breathing. HEART EXAMINATION: Regular rate and rhythm. S1, S2 heard. No murmurs, gallops or rub. ABDOMEN: Soft, nontender. Positive bowel sounds. EXTREMITIES: 2+ peripheral pulses, no lower extremity edema and no calf tenderness. NEUROLOGIC EXAMINATION: Patient is awake, alert and oriented x3. ASSESSMENT Acute onset right-sided face, arm, and leg numbness and tingling History of TIA History of Coronary artery disease status post PCI to the left circumflex in 2008 Hypertension Type 2 diabetes Dyslipidemia PLAN -Recommend starting study at 10 mg daily and diabetes control -Continue current cardiac medications. -Workup per neurology -Will discuss possible loop recorder placement as an outpatient -From cardiology, patient stable to be discharged home. Follow up with Dr. Jones Nurse Practitioner note has been reviewed, I agree with a documented findings and plan of care. Patient was seen and examined. Objective - Vital Signs Vital signs: Vital Signs Temp 97.8 F 04/19/21 11:39 Pulse 60 04/19/21 11:39 Resp 17 04/19/21 11:39 BP 149/77 04/19/21 11:39 Pulse Ox 99 04/19/21 11:39 Intake & Output 04/18/21 04/19/21 04/19/21 18:59 06:59 18:59 Intake Total 702 Balance 702 Weight 93.6 kg Intake: Oral 702 Other: Voiding Method Toilet # Voids 1 3 - Labs CBC & Chem 7: 04/18/21 12:10 04/18/21 12:10 Labs: Abnormal Lab Results - Last 24 Hours (Table) 04/18/21 04/18/21 04/18/21 Range/Units 12:10 16:43 20:35 POC Glucose (mg/dL) 110 H 100 H (75-99) mg/dL Hemoglobin A1c 6.8 H (4.0-6.0) % 04/19/21 04/19/21 Range/Units 06:01 12:20 POC Glucose (mg/dL) 102 H 133 H (75-99) mg/dL Hemoglobin A1c (4.0-6.0) %
--- NOTE | 2021-04-19 15:03 | P.PN ---
Subjective Progress Note Date: 04/19/21 Patient was seen for a follow-up. Patient offers no new complaints. Still sometimes gets tingling of the right hand and the right facial region. No balance issues. No speech or facial drooping. Objective - Vital Signs Vital signs: Vital Signs Temp 97.8 F 04/19/21 11:39 Pulse 60 04/19/21 11:39 Resp 17 04/19/21 11:39 BP 149/77 04/19/21 11:39 Pulse Ox 99 04/19/21 11:39 Intake & Output 04/18/21 04/19/21 04/19/21 18:59 06:59 18:59 Intake Total 702 Balance 702 Weight 93.6 kg Intake: Oral 702 Other: Voiding Method Toilet # Voids 1 3 - Exam Patient's mental status, speech and language functions are normal. Cranial nerves are normal. No pronator drift. - Labs CBC & Chem 7: 04/18/21 12:10 04/18/21 12:10 Labs: Abnormal Lab Results - Last 24 Hours (Table) 04/18/21 04/18/21 04/18/21 Range/Units 12:10 16:43 20:35 POC Glucose (mg/dL) 110 H 100 H (75-99) mg/dL Hemoglobin A1c 6.8 H (4.0-6.0) % 04/19/21 04/19/21 Range/Units 06:01 12:20 POC Glucose (mg/dL) 102 H 133 H (75-99) mg/dL Hemoglobin A1c (4.0-6.0) % Assessment and Plan Assessment: * Recurrent paresthesias involving right side the body involving face arm and leg. Her symptoms are are suggestive of possible lacunar symptoms, perhaps in the left thalamic region. * Hypertension * Diabetes, well controlled * Hyperlipidemia, well controlled * Obesity Plan: * Patient's CTA of head and neck was reviewed. Vascular surgery has seen the patient. Carotid Doppler revealed no stenosis. * Hemoglobin A1c 6.8, * Lipid panel with cholesterol 120, LDL 57, HDL 45, triglycerides 86. Continue Lipitor 80 mg. * B12 411, which is borderline. Patient was given B12 1000 g IM injection 1. Thereafter she can continue B12 1000 g sublingual daily daily. Folate 8.3, TSH normal.. * 2-D echo revealed normal left ventricular size. Borderline concentric LVH. EF is between 60-65%. Mild aortic regurgitation. Mild mitral annular calcification. Mild mitral regurgitation. * Switch from Plavix to Brilinta 90 mg twice a day. Continue aspirin 81 mg daily. * Patient currently on Protonix 40 mg twice a day for gastric ulcer prophylaxis. * Telemetry monitoring so far showing sinus rhythm, with sinus bradycardia in 40s, some PVCs and PACs. No other arrhythmia. * Follow up with neurologist in 2-3 weeks after discharge. Neurologically clear.
[2021-04-19 15:14] VITALS: BP 145/75; PULSE 65; RESP 16; TEMP 97.6
--- NOTE | 2021-04-19 20:28 | P.DS ---
Providers Date of admission: 04/17/21 19:45 Attending physician: Ervin Zavala MD Consults: 04/17/21 19:47 Consult Physician Routine Consulting Provider: Serjio Landin Consult Reason/Comments: CVA Do you want consulting provider notified?: Yes 04/18/21 10:02 Consult Physician Routine Consulting Provider: Yuriy Jones Consult Reason/Comments: known to patient Do you want consulting provider notified?: Already Contacted Primary care physician: Lukas Hernandez [facility] Course: Diagnoses: Right sided numbness, possible TIA versus stroke Left thyroid nodule 2.2 cm, patient informed and she was to follow up as an outpatient Hypertension History of coronary artery disease Diabetes mellitus History of GERD History of CVA/TIA History of osteoarthritis Hospital course: This is a pleasant 70 years old female with past medical history of Coronary Artery Disease (CAD), Cancer, CVA/TIA, Diabetes Mellitus, GERD, Hypertension, Osteoarthritis , KIDNEY STONES, diarrhea for 6 weeks couple months ago, urinary leakage Patient presents with right-sided numbness with intermittent mild headache which is resolved patient had no weakness and no other neurological deficits. Her workup was unremarkable including normal ejection fraction of 60-65% Carotid duplex negative for significant stenosis and TSH is normal at 0.8. CTA of the brain showing no complete vascular occlusion, mild to moderate right MCA significant narrowing, mild left MCA significant narrowing, mild narrowing in the region of the left vertebral artery, a stent 50% narrowing right greater than left bilateral carotid bifurcation, questionable origin right posterior cerebral artery. Left Thyroid nodule 2.2 cm Patient has been evaluated by vascular surgery consult with recommended no intervention. Neurologist and radiator repairer evaluated the patient, she was on aspirin and Plavix at home last changed to aspirin and purulent. Borderline low B12 has been replaced and started on oral placement upon discharge [employer] Clerk recommended loop recorder which can be done as an outpatient On the day of discharge patient was encouraged to be going home, she still has some numbness in the right side but is improving. No other symptoms. She denies chest pain or dyspnea. No change in urine or bowel habits. No fever. Problems and management plan were discussed with the patient and he verbalized understanding and acceptance Patient was found stable and can be discharged home however he needs follow-up as an outpatient. Patient was instructed to follow up with PCP Dr. Hernandez within one week and patient agrees and states she has appointment with him on 05/01 that and that she follow up with. She is going to discuss his thyroid nodule with him Patient was instructed to follow up with her neurologist Dr. Villafuerte in one week and her radiator repairer Dr. Stacy in 1-2 weeks and she agrees to call and make appointment Physical exam Gen: patient is a AAOx3, no distress CVS: S1-S2, RRR, no murmur Lungs: B/L CTA, no wheezing Abdomen: soft, no distention, no tenderness, positive bowel sounds Extremity: no leg edema or induration Cranial nerves are grossly intact. Motor strength is 5/5 in all extremity. Sensation is intact. Meningeal signs are absent. Gait is normal. Abdomen is on the right side of the face and right arm and leg partially improvement Time spent more than 35 minutes Patient Condition at Discharge: Stable Plan - Discharge Summary Discharge Rx Participant: No New Discharge Prescriptions: New Ezetimibe [Zetia] 10 mg PO DAILY 30 Days #30 tab Ticagrelor [Brilinta] 90 mg PO BID #60 tab Cyanocobalamin [Vitamin B-12] 500 mcg PO DAILY #30 tab Aspirin 81 mg PO DAILY #30 tab Continue Insulin Glargine,Hum.rec.anlog [Lantus Solostar Pen] 30 units SQ HS Atorvastatin [Lipitor] 80 mg PO HS Metoprolol Succinate [Toprol XL] 50 mg PO DAILY Calcium Carbonate [Calcium] 1,200 mg PO DAILY Insulin Aspart [NovoLOG Flexpen] See Protocol SQ AC-TID Isosorbide Dinitrate 30 mg PO HS Pantoprazole Sodium [Protonix] 40 mg PO BID Empagliflozin [Jardiance] 25 mg PO DAILY Cholecalciferol (Vitamin D3) [Vitamin D3 (125 MCG = 5,000 IU)] 125 mcg PO DAILY Discontinued Clopidogrel Bisulfate [Plavix] 75 mg PO DAILY #30 tab Aspirin 81 mg PO BID Benazepril HCl 10 mg PO HS Benazepril HCl 20 mg PO DAILY Discharge Medication List Atorvastatin [Lipitor] 80 mg PO HS 07/21/14 [History] Insulin Glargine,Hum.rec.anlog [Lantus Solostar Pen] 30 units SQ HS 07/21/14 [History] Metoprolol Succinate [Toprol XL] 50 mg PO DAILY 03/17/16 [History] Calcium Carbonate [Calcium] 1,200 mg PO DAILY 01/31/19 [History] Insulin Aspart [NovoLOG Flexpen] See Protocol SQ AC-TID 01/31/19 [History] Isosorbide Dinitrate 30 mg PO HS 06/03/19 [History] Cholecalciferol (Vitamin D3) [Vitamin D3 (125 MCG = 5,000 IU)] 125 mcg PO DAILY 04/17/21 [History] Empagliflozin [Jardiance] 25 mg PO DAILY 04/17/21 [History] Pantoprazole Sodium [Protonix] 40 mg PO BID 04/17/21 [History] Aspirin 81 mg PO DAILY #30 tab 04/19/21 [Rx] Cyanocobalamin [Vitamin B-12] 500 mcg PO DAILY #30 tab 04/19/21 [Rx] Ezetimibe [Zetia] 10 mg PO DAILY 30 Days #30 tab 04/19/21 [Rx] Ticagrelor [Brilinta] 90 mg PO BID #60 tab 04/19/21 [Rx] Follow up Appointment(s)/Referral(s): Lukas Hernandez DO [Primary Care Provider] - 05/01/21 11:40 am (previously scheduled appt. keep this. ) Yuriy Jones MD [STAFF PHYSICIAN] - 2 Weeks (you will need loop recorder as outpatient. message left with Dr Jones's office to schedule appointment with patient. ) Tony Villafuerte MD [Medical Doctor] - 1 Week (patient refuses appointment. stat es will make neurologist appointment. ) Patient Instructions/Handouts: Transient Ischemic Attack (DC), Stroke (DC) Activity/Diet/Wound Care/Special Instructions: heart healthy diet activity is restricted till you see your doctor Please stop taking aspirin 81 mg twice daily, and change it to 81 mg once daily stop taking plavix 75mg daily. Discharge Disposition: HOME SELF-CARE
[2021-04-20] MEDS ORDERED: ASPIRIN 81 MG PO SCH (09:00)
[2021-04-20] MEDS ORDERED: CYANOCOBALAMIN 500 MCG TAB PO SCH (09:00)
--- NOTE | 2021-04-22 13:06 | CDI ---
Documentation Clarification Form Date: 04/22/2021 12:36:00 PM From: Mary Chamorro Admit Date: 04/17/2021 07:45:00 PM Patient Name: Vita Romero Visit Number: [id number] Discharge Date: 04/19/2021 03:25:00 PM ATTENTION: The Clinical Documentation Specialists (CDI) and [facility] Coding Staff appreciate your assistance in clarifying documentation. Please respond to the clarification below the line at the bottom and electronically sign. The CDI & [facility] Coding staff will review the response and follow-up if needed. Please note: Queries are made part of the Legal Health Record. If you have any questions, please contact the author of this message via ITS. Dr. Ervin Zavala TIA is documented in [facility] as possible TIA versus stroke. Per neurology consult "Recurrent parasthesias involving right side of the body involving face arm and leg. Her symptoms are suggestive of possible lacunar symptoms perhaps in the left thalamic region." In your professional opinion, additional clarification is needed to whether patient had TIA or CVA. Patient history/risk factors: History of recurrent parasthesias. Clinical indicators: CT head: Slight decrease in casanova white matter differentiation in the right temporal lobe could be secondary to vascular insult. Carotid US: no significant stenosis seen Echo: EF 60-65% Treatment: Plavix and aspirin Consult: neuro consult could be lucunar in left thalamus area Please clarify, in your professional opinion if patient has: [ ] TIA [ ] Hemorrhagic Stroke [ ] Ischemic Stroke [ ] Sequelae of Cerebrovascular Disease [ ] Vertebro-Basilar Artery Syndrome [ ] Other (please specify): [ ] Etiology unknown or Unable to determine left lacunar TIA vs stroke MTDD
== END 2021-04-19 15:25 | disposition home or self-care (01) | DRG 65 ==
LOC: EC 15:33 → 3SCARD 19:45
PROVIDERS: ADMIT Internal Medicine; ATTEND Internal Medicine
DX: I63.9 Cerebral infarction, unspecified (principal); G45.9 Transient cerebral ischemic attack, unspecified; E04.1 Nontoxic single thyroid nodule; E11.9 Type 2 diabetes mellitus without complications; E66.9 Obesity, unspecified; Z68.37 Body mass index [BMI] 37.0-37.9, adult; E78.5 Hyperlipidemia, unspecified; I10 Essential (primary) hypertension; R19.7 Diarrhea, unspecified; R20.0 Anesthesia of skin; I25.10 Atherosclerotic heart disease of native coronary artery without angina pectoris; I27.20 Pulmonary hypertension, unspecified; J44.9 Chronic obstructive pulmonary disease, unspecified; E53.8 Deficiency of other specified B group vitamins; Z83.2 Family history of diseases of the blood and blood-forming organs and certain disorders involving the immune mechanism; R32 Unspecified urinary incontinence; Z20.822 Contact with and (suspected) exposure to COVID-19; Z79.02 Long term (current) use of antithrombotics/antiplatelets; Z79.82 Long term (current) use of aspirin; Z85.828 Personal history of other malignant neoplasm of skin; Z79.84 Long term (current) use of oral hypoglycemic drugs; I44.0 Atrioventricular block, first degree; Z79.899 Other long term (current) drug therapy; Z80.0 Family history of malignant neoplasm of digestive organs; Z82.0 Family history of epilepsy and other diseases of the nervous system; Z86.73 Personal history of transient ischemic attack (TIA), and cerebral infarction without residual deficits; Z87.442 Personal history of urinary calculi; Z96.653 Presence of artificial knee joint, bilateral; Z98.61 Coronary angioplasty status; Z90.89 Acquired absence of other organs; Z98.51 Tubal ligation status
CPT/HCPCS: 36415; 70450; 70496; 70498; 71046; 80048; 80053; 80061; 82607; 82746; 83036; 84443; 84484; 85025; 85610; 85730; 87635; 93005; 93306; 93880; 96360; 96361; 99285

== ENCOUNTER 2021-05-23 13:56 | Day surgery (SDC) | payer MEDICARE ==
[2021-05-23] MEDS ORDERED: SODIUM CHLORIDE 0.9% 1,000 ML IV SCH (14:00)
[2021-05-23 14:34] LABS: Glucose,Whole Blood 134 mg/dL (75-99)
[2021-05-23 14:36] VITALS: RESP 16; TEMP 97.9
[2021-05-23] MEDS ORDERED: SODIUM CHLORIDE 0.9% 500 ML 500 ML IV ONE (14:37)
[2021-05-23] MEDS ORDERED: LIDOCAINE 1% INJ 10MG/ML (20 ML MDV) ONE (14:55)
[2021-05-23] MEDS ORDERED: LIDOCAINE 1% INJ 10MG/ML (20 ML MDV) SQ ONE (15:04)
--- NOTE | 2021-05-23 15:33 | P.EPPROC ---
- EP Procedure Note Electrophysiology Procedure Note: Diagnosis Cryptogenic stroke Loop monitor implant Primary physicians: Dr. Hernandez Math Interventionist: Dr. Jones Indication: Cryptogenic stroke Patient was brought to the EP lab in a fasting state. Written informed consent was obtained prior to the procedure. The left pectoral area was prepped and draped per protocol. Intravenous antibiotic was administered preoperatively. A subcutaneous Loop monitor was implanted successfully and the wound was closed per protocol. The device was programmed to detect significant kelley- arrhythmic and tachy-arrhythmic events, per protocol. Device and programming details: Programmed for detection of atrial fibrillation Patient underwent EP procedure under conscious sedation/moderate sedation, monitoring of the level of consciousness and physiologic parameters including but not limited to vital signs and oxygenation. Patient tolerated the procedure well without any acute complications. Start time: 1504 Stop time: 1513
--- NOTE | 2021-05-23 15:39 | P.EPPROC ---
- EP Procedure Note Electrophysiology Procedure Note: Dear Dr. David Gorman underwent implantation of a loop monitor. As you know she's had an e pisode of CVA were never documented in atrial fibrillation She has been on guideline directed medical treatment for atherosclerosis to Hopefully this will shed some light in the next few months Thank you for entrusting me with the care of the patient Warm regards Sincerely Yuriy Jones
[2021-05-23 15:49] VITALS: BP 132/62; PULSE 70
== END 2021-05-23 16:07 | disposition home or self-care (01) ==
LOC: CATHEP 13:56
PROVIDERS: ATTEND Internal Medicine Clinical Cardiac Electrophysiology
DX: I63.9 Cerebral infarction, unspecified (principal); I10 Essential (primary) hypertension; Z79.02 Long term (current) use of antithrombotics/antiplatelets; Z79.82 Long term (current) use of aspirin; Z20.822 Contact with and (suspected) exposure to COVID-19; Z79.4 Long term (current) use of insulin; Z79.899 Other long term (current) drug therapy
CPT/HCPCS: 33285; 87635; C1764; J0690; J2001

== ENCOUNTER 2021-09-06 07:09 | Day surgery (SDC) | payer MEDICARE ==
[2021-09-04 11:37] VITALS: BMI 36.3
[~2021-09-06 07:09] MED LIST changes: -LIDOCAINE 1% 20 ML VIAL (10MG/ML) FOR IV START INTRADERMA PRN; -LIDOCAINE 1% INJ 10MG/ML (20 ML MDV) ONE; -PROPOFOL 10 MG/ML 20 ML VIAL IV ONE
[2021-09-06] MEDS ORDERED: LACTATED RINGERS 1,000 ML IV ONE (07:22)
[2021-09-06 07:30] LABS: Glucose,Whole Blood 116 mg/dL (75-99)
[2021-09-06 07:34] VITALS: TEMP 98
[2021-09-06] MEDS ORDERED: fentaNYL (PF) 50 MCG/ML 2 ML AMP ONE (08:06)
[2021-09-06] MEDS ORDERED: PROPOFOL 10 MG/ML 20 ML VIAL IV ONE (08:06)
[2021-09-06] MEDS ORDERED: MIDAZOLAM 2 MG/2 ML VIAL ONE (08:06)
--- NOTE | 2021-09-06 08:20 | P.PCN ---
Date of Procedure: 09/06/21 Procedure(s) Performed: BRIEF HISTORY: Patient is a 70-year-old pleasant white female scheduled for an elective colonoscopy as a part of value should prior history of colon polyps. Last colonoscopy was 5 years ago. PROCEDURE PERFORMED: Colonoscopy with biopsy. PREOPERATIVE DIAGNOSIS: History of colon polyps. IV sedation per Anesthesia. PROCEDURE: After informed consent was obtained, the patient, was brought into the endoscopy unit. IV sedation was administered by Anesthesia under continuous monitoring. Digital rectal examination was normal. Initially the Olympus CF-160 flexible video colonoscope was then inserted in the rectum, gradually advanced into the cecum without any difficulty. Careful examination was performed as the scope was gradually being withdrawn. Ileocecal valve and the appendiceal orifice were visualized and appeared normal. Prep was excellent. Mucosa of the cecum had 3-4 mm sessile polyp removed by cold biopsy. Rest of the, ascending colon, transverse colon, descending colon, sigmoid colon, and rectum appeared normal. At her sigmoid diverticulosis seen. Retroflexion was performed in the rectum and no lesions were seen. The patient tolerated the procedure well. IMPRESSION: 3-4 mm cecal polyp status post cold biopsy Scattered sigmoid diverticulosis RECOMMENDATIONS: Findings of this examination were discussed with the patient as well as a family. She was advised to follow with the biopsy results and if the biopsy result adenoma she can have a repeat colonoscopy in 5 years.
[2021-09-06 08:25] VITALS: RESP 16
[2021-09-06 08:50] VITALS: BP 104/67; PULSE 79
== END 2021-09-06 09:06 | disposition home or self-care (01) ==
LOC: ORWHC2ENDO 07:09
PROVIDERS: ATTEND Internal Medicine Gastroenterology
DX: K57.30 Diverticulosis of large intestine without perforation or abscess without bleeding (principal); D12.0 Benign neoplasm of cecum; Z80.0 Family history of malignant neoplasm of digestive organs; Z86.010 Personal history of colon polyps
CPT/HCPCS: 45380; 88305; J2250; J3010; J2704

== ENCOUNTER 2022-04-01 12:28 | Observation (INO) | payer MEDICARE ==
[2022-04-01 13:06] LABS: Basophils # (A) 0.1 k/uL (0-0.2); Basophils % (A) 1 %; Eosinophils # (A) 0.1 k/uL (0-0.7); Eosinophils % (A) 1 %; HCT 50.9 % (34.0-46.0); HGB 16.5 gm/dL (11.4-16.0); Lymphocytes # (A) 2.2 k/uL (1.0-4.8); Lymphocytes % (A) 22 %; MCH 29.1 pg (25.0-35.0); MCHC 32.5 g/dL (31.0-37.0); MCV 89.6 fL (80.0-100.0); Mean Platelet Volume 6.9; Monocytes # (A) 0.6 k/uL (0-1.0); Monocytes % (A) 6 %; Neutrophils # (A) 6.9 k/uL (1.3-7.7); Neutrophils % (A) 69 %; Platelet Count 216 k/uL (150-450); RBC 5.68 m/uL (3.80-5.40); RDW 12.9 % (11.5-15.5)
[2022-04-01 13:23] LABS: Partial Thromboplastin Time 25.8 sec (22.0-30.0); Prothrombin Time 10.8 sec (9.0-12.0)
[2022-04-01 13:27] LABS: Potassium 4.5 mmol/L (3.5-5.1); Total Bilirubin 1.4 mg/dL (0.2-1.3); Total Protein 6.8 g/dL (6.3-8.2)
--- NOTE | 2022-04-01 13:51 | XR ---
EXAMINATION TYPE: XR chest 2V DATE OF EXAM: 04/01/2022 1:24 PM COMPARISON: Chest radiographs from 04/17/2021. TECHNIQUE: XR chest 2V Frontal and lateral views of the chest. CLINICAL INDICATION:Female, 71 years old with history of Pain; FINDINGS: Lungs/Pleura: There is no evidence of pleural effusion, focal consolidation, or pneumothorax. Pulmonary vascularity: Unremarkable. Heart/mediastinum: Cardiomediastinal silhouette is unremarkable. Atherosclerotic calcifications are seen in the aorta. Musculoskeletal: Multiple level degenerative disc disease changes seen throughout the spine. Other findings: Loop recorder overlies the left chest wall. Surgical clips in the right upper quadran t. IMPRESSION: No acute cardiopulmonary disease/process. No significant change from prior examination.
[2022-04-01] MEDS ORDERED: NITROGLYCERIN SL TABS 0.4 MG TAB SUBLINGUAL PRN (15:01)
[2022-04-01] MEDS ORDERED: ASPIRIN 81 MG PO STA (15:01)
--- NOTE | 2022-04-01 15:01 | ED ---
Chest Pain HPI - General Chief Complaint: Chest Pain Stated Complaint: chest pain Time Seen by Provider: 04/01/22 14:41 Source: patient, RN notes reviewed Mode of arrival: ambulatory Limitations: no limitations - History of Present Illness Initial Comments: 71-year-old female presents emergency Department with chief complaint of chest pain. Patient states symptoms started yesterday have an episodic associate with mild exertion. She states that even light walking she has noticed that she becomes symptomatic which she has left-sided chest pain, becomes diaphoretic. Patient states she does have history of cardiac disease including cardiac stent in 2008, at her cath 3 years ago which showed moderate stenosis. Patient states that symptoms are becoming more concerning, more frequent she states that rest symptoms resolved. - Related Data Home Medications Medication Instructions Recorded Confirmed Atorvastatin [Lipitor] 80 mg PO HS 07/21/14 09/04/21 Insulin Glargine,Hum.rec.anlog 30 units SQ HS 07/21/14 09/04/21 [Lantus Solostar Pen] Metoprolol Succinate [Toprol XL] 50 mg PO QAM 09/27/15 09/04/21 Insulin Aspart [NovoLOG Flexpen] See Protocol SQ AC-TID 01/31/19 09/04/21 Isosorbide Dinitrate 30 mg PO HS 06/03/19 09/04/21 Cholecalciferol (Vitamin D3) 125 mcg PO DAILY 04/17/21 09/04/21 [Vitamin D3 (125 MCG = 5,000 IU)] Empagliflozin [Jardiance] 25 mg PO DAILY 04/17/21 09/04/21 Benazepril HCl 20 mg PO QAM 05/23/21 09/04/21 Cyclobenzaprine [Flexeril] 5 mg PO HS 09/04/21 09/04/21 Pantoprazole [Protonix] 40 mg PO DAILY 09/04/21 09/04/21 Previous Rx's Medication Instructions Recorded Aspirin 81 mg PO DAILY #30 tab 04/19/21 Cyanocobalamin [Vitamin B-12] 500 mcg PO DAILY #30 tab 04/19/21 Ezetimibe [Zetia] 10 mg PO DAILY 30 Days #30 tab 04/19/21 Allergies Allergy/AdvReac Type Severity Reaction Status Date / Time No Known Allergies Allergy Verified 04/01/22 12:36 Review of Systems ROS Statement: Those systems with pertinent positive or pertinent negative responses have been documented in the HPI. ROS Other: All systems not noted in ROS Statement are negative. EKG Findings - EKG Comments: EKG Findings:: EKG performed at 12:46 sinus rhythm with rate of 72 WA 161/74 QT/QTC 352/376 Past Medical History Past Medical History: Coronary Artery Disease (CAD), Cancer, CVA/TIA, Diabetes Mellitus, GERD/Reflux, Hypertension, Osteoarthritis (OA) Additional Past Medical History / Comment(s): SKIN CANCER , KIDNEY STONES, urinary leakage History of Any Multi-Drug Resistant Organisms: None Reported Past Surgical History: Adenoidectomy, Section, Cholecystectomy, Heart Catheterization, Heart Catheterization With Stent, Joint Replacement, Orthopedic Surgery, Tonsillectomy, Tubal Ligation Additional Past Surgical History / Comment(s): CATARACT BILATERAL EYE, TOTAL mallorie KNEE replacement, BILATERAL CARPAL TUNNEL RELEASE,C- SECTION X3, 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 stress test in 10/29 Past Anesthesia/Blood Transfusion Reactions: Motion Sickness Date of Last Stent Placement:: 10/2008 Type of Cardiac Device: Loop Device Placement Date:: loop monitor placed May Past Psychological History: No Psychological Hx Reported Smoking Status: Never smoker Past Alcohol Use History: None Reported Past Drug Use History: None Reported - Past Family History Son(s) Family Medical History: Deep Vein Thrombosis (DVT) Mother Additional Family Medical History / Comment(s): Alzheimer Disease Father Additional Family Medical History / Comment(s): Passed at age 48 due to unknown medical complications. Brother(s) Family Medical History: Cancer Additional Family Medical History / Comment(s): Pancreatic cancer, at age 62. General Exam Limitations: no limitations General appearance: alert, in no apparent distress Head exam: Present: atraumatic, normocephalic, normal inspection Eye exam: Present: normal appearance, PERRL, EOMI. Absent: scleral icterus, conjunctival injection, periorbital swelling ENT exam: Present: normal exam, normal oropharynx, mucous membranes moist Neck exam: Present: normal inspection, full ROM. Absent: tenderness, meningismus, lymphadenopathy Respiratory exam: Present: normal lung sounds bilaterally. Absent: respiratory distress, wheezes, rales, rhonchi, stridor Cardiovascular Exam: Present: regular rate, normal rhythm, normal heart sounds. Absent: systolic murmur, diastolic murmur, rubs, gallop, clicks GI/Abdominal exam: Present: soft, normal bowel sounds. Absent: distended, tenderness, guarding, rebound, rigid Course Vital Signs 04/01/22 12:34 Temperature 97.9 F Pulse Rate 72 Respiratory 20 Rate Blood Pressure 147/69 O2 Sat by Pulse 96 Oximetry Chest Pain MDM - MDM 16-year-old female presented for chest pain. Patient has very concerning symptoms symptoms. Patient's initial workup including labs EKG revealed acute findings cardiac cath from 2019 shows moderate plaque formation. Patient be admitted for cardiac rule out, cardiology evaluation Disposition Clinical Impression: Chest pain Disposition: ADMITTED IP TO THIS HOSP Referrals: Lukas Hernandez DO [Primary Care Provider] - 1-2 days Time of Disposition: 15:00
--- NOTE | 2022-04-01 15:53 | P.HPIM ---
History of Present Illness H&P Date: 04/01/22 History of Presenting Illness: Patient is a very pleasant 71-year-old female with a past medical history of CAD status post stenting in 2008 on aspirin, hypertension, hyperlipidemia, and insulin-dependent diabetes mellitus. She presented to the emergency department with the chief complaint of chest pain. Patient reports over the past 2 days she has noticed increased fatigue and shortness of breath with exertion and accompanied by intermittent episodes of chest pain and diaphoresis. Patient describes this pain as a pressure-like sensation to her left anterior chest and denies any radiation of pain. She denies having any recent illnesses or exposure to known ill contacts, headache, lightheadedness, dizziness, palpitations, shortness of breath at rest, abdominal pain, nausea, vomiting, or experiencing any numbness/tingling/weakness/swelling in her extremities. Za ent underwent full evaluation in the emergency department. EKG was completed showing normal sinus rhythm at 72 bpm with T-wave inversion in lead III. Chest x-ray negative for acute cardiopulmonary process. CBC revealing elevated hemoglobin of 16.5 and hematocrit of 50.9. CMP revealing hyperglycemia with glucose of 214 and slightly elevated total bili of 1.4. Troponin was negative at less than 0.012. Patient admitted under our services with consultation to cardiology. Review of systems: Pertinent positives and negatives as discussed in HPI, a complete review of systems was performed and all other systems are negative. Physical exam: Vital signs reviewed and stable. General: Nontoxic, no distress and appears stated age. Derm: Skin warm and dry, normal coloration for ethnicity. Head: Atraumatic, normocephalic and symmetric. Eyes: EOMs intact, no lid lag, and anicteric sclera Mouth: no lip lesions, mucus membranes moist Cardiovascular: regular rate and rhythm with normal S1S2, systolic murmur, positive posterior tibial pulses bilaterally, and cap refill < 2 seconds. Lungs: Respirations even, regular, and unlabored on room air. Lungs CTA bilaterally, no rhonchi, no rales, no wheezing, and no accessory muscle usage. Abdominal: soft, nontender to palpation, no guarding, no appreciable organomegaly Ext: ROM intact. No gross muscle atrophy, 1+ pitting edema to BLE, no contractures Neuro: Speech clear, face symmetrical and CN II-XII grossly intact with no noted focal neuro deficits Psych: Alert and oriented to person, place, time, and situation. Appropriate and pleasant affect. Assessment and Plan of Care: Chest pain, rule out acute coronary event History of CAD status post stenting in 2008 -Cardiology consult, appreciate further recommendations -Telemetry monitoring -Trend troponins -Cardiac diet, NPO at midnight -Aspirin, atorvastatin, and metoprolol -Lipid profile with a.m. labs. -Echocardiogram Hypertension -Monitor vital signs and continue daily medication regimen with metoprolol, lisinopril, and isosorbide mononitrate. Hyperlipidemia -Continue daily medication regimen with atorvastatin. -Heart healthy diet. The patient is admitted with an anticipated less than 2 midnight stay for evaluation of chest pain CODE STATUS: Full code DVT prophylaxis: Heparin Discussed with: Pt and RN Anticipated discharge date: 1-[address]: Home A total of 47 minutes was spent on the care of this complex patient more than 50% of the time was spent in counseling and care coordination. Past Medical History Past Medical History: Coronary Artery Disease (CAD), Cancer, CVA/TIA, Diabetes Mellitus, GERD/Reflux, Hypertension, Osteoarthritis (OA) Additional Past Medical History / Comment(s): SKIN CANCER , KIDNEY STONES, urinary leakage History of Any Multi-Drug Resistant Organisms: None Reported Past Surgical History: Adenoidectomy, Section, Cholecystectomy, Heart Catheterization, Heart Catheterization With Stent, Joint Replacement, Orthopedic Surgery, Tonsillectomy, Tubal Ligation Additional Past Surgical History / Comment(s): CATARACT BILATERAL EYE, TOTAL mallorie KNEE replacement, BILATERAL CARPAL TUNNEL RELEASE,C- SECTION X3, 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 stress test in 10/29 Past Anesthesia/Blood Transfusion Reactions: Motion Sickness Date of Last Stent Placement:: 10/2008 Type of Cardiac Device: Loop Device Placement Date:: loop monitor placed May Past Psychological History: No Psychological Hx Reported Smoking Status: Never smoker Past Alcohol Use History: None Reported Past Drug Use History: None Reported - Past Family History Son(s) Family Medical History: Deep Vein Thrombosis (DVT) Mother Additional Family Medical History / Comment(s): Alzheimer Disease Father Additional Family Medical History / Comment(s): Passed at age 48 due to unknown medical complications. Brother(s) Family Medical History: Cancer Additional Family Medical History / Comment(s): Pancreatic cancer, at age 62. Medications and Allergies Home Medications Medication Instructions Recorded Confirmed Type Atorvastatin [Lipitor] 80 mg PO HS 07/21/14 04/01/22 History Insulin Glargine,Hum.rec.anlog 30 units SQ HS 07/21/14 04/01/22 History [Lantus Solostar Pen] Metoprolol Succinate [Toprol XL] 50 mg PO DAILY 09/27/15 04/01/22 History Insulin Aspart [NovoLOG Flexpen] See Protocol SQ AC-TID PRN 01/31/19 04/01/22 History Isosorbide Dinitrate 30 mg PO HS 06/03/19 04/01/22 History Empagliflozin [Jardiance] 25 mg PO DAILY 04/17/21 04/01/22 History Ezetimibe [Zetia] 10 mg PO DAILY 30 Days #30 tab 04/19/21 04/01/22 Rx Benazepril HCl 20 mg PO HS 05/23/21 04/01/22 History Pantoprazole [Protonix] 40 mg PO DAILY 09/04/21 04/01/22 History Aspirin 81 mg PO BID 04/01/22 04/01/22 History Cyanocobalamin [Vitamin B-12] 500 mcg PO BID 04/01/22 04/01/22 History Insulin Aspart [NovoLOG Flexpen] 10 units SQ AC-TID 04/01/22 04/01/22 History Allergies Allergy/AdvReac Type Severity Reaction Status Date / Time No Known Allergies Allergy Verified 04/01/22 15:32 Physical Exam Vitals: Vital Signs Temp Pulse Resp BP Pulse Ox 04/01/22 12:34 97.9 F 72 20 147/69 96 Intake and Output 04/01/22 04/01/22 04/01/22 06:59 14:59 22:59 Other: Weight 95.254 kg Results CBC & Chem 7: 04/01/22 12:46 04/01/22 12:46 Labs: Abnormal Lab Results - Last 24 Hours (Table) 04/01/22 04/01/22 Range/Units 12:46 12:46 RBC 5.68 H (3.80-5.40) m/uL Hgb 16.5 H (11.4-16.0) gm/dL Hct 50.9 H (34.0-46.0) % Sodium 136 L (137-145) mmol/L BUN 18 H (7-17) mg/dL Glucose 214 H (74-99) mg/dL Total Bilirubin 1.4 H (0.2-1.3) mg/dL
[2022-04-01] MEDS ORDERED: DEXTROSE 50% SYRINGE 50 ML IVP PRN ×2 (15:54)
[2022-04-01] MEDS ORDERED: NALOXONE 0.4 MG/ML 1 ML VIAL IVP PRN (15:56)
[2022-04-01] MEDS: HEPARIN SODIUM,PORCINE/PF 5,000 UNIT/0.5 ML SYRINGE SQ SCH (16:54)
[2022-04-01 17:03] LABS: Glucose,Whole Blood 142 mg/dL (70-110)
[2022-04-01] MEDS: INSULIN ASPART (NovoLOG) 100 UNIT/ML VIAL SQ SCH ×3 (17:14→20:29)
[2022-04-01 20:03] LABS: Glucose,Whole Blood 194 mg/dL (70-110)
[2022-04-01] MEDS ORDERED: lisinopriL 20 MG TAB PO SCH (21:00)
[2022-04-01] MEDS ORDERED: ISOSORBIDE DINITRATE 10 MG TAB PO SCH (21:00)
[2022-04-01] MEDS ORDERED: INSULIN DETEMIR (LEVEMIR) 100 UNIT/ML SYR SQ SCH (21:00)
[2022-04-01] MEDS ORDERED: ATORVASTATIN 80 MG TAB PO SCH (21:00)
[2022-04-02] MEDS: HEPARIN SODIUM,PORCINE/PF 5,000 UNIT/0.5 ML SYRINGE SQ SCH ×2 (00:58→08:54)
[2022-04-02] MEDS ORDERED: PANTOPRAZOLE 40 MG TABLET PO SCH (07:30)
[2022-04-02 07:41] VITALS: RESP 14; TEMP 97.8
[2022-04-02 08:07] LABS: Glucose,Whole Blood 122 mg/dL (70-110)
[2022-04-02] MEDS ORDERED: ALPRAZolam 0.5 MG TAB PO PRN (08:15)
[2022-04-02] MEDS ORDERED: SODIUM CHLORIDE 0.9% 1,000 ML in EMPTY BAG 1 BAG IV SCH (08:15)
[2022-04-02] MEDS ORDERED: ALPRAZolam 0.25 MG TAB PO PRN (08:15)
--- NOTE | 2022-04-02 08:36 | P.CRDCN ---
History of Present Illness History of present illness: This is a pleasant 70-year-old female past medical history significant for TIA, loop recorder placement in 05/2021, coronary artery disease status post PCI to the left circumflex in 2008, hypertension, type 2 diabetes, dyslipidemia, obesity, GERD. She follows in the office with Dr. Jones. Patient presented to the emergency department for evaluation of chest discomfort. She states her s ymptoms started 2 days ago. She has been having intermittent left sided chest discomfort, that lasts for about 1-2 minutes. Describes it initially as burning, but states she also had left sided tightness and pressure. She thought it may be GERD, took antacid with no relief. Yesterday she was walking and had episode of left sided chest pressure with associated diaphoresis. She does state it does n ot always related to activity. It is non-radiating. However, the first time she states she did feel some discomfort in the left shoulder. No specific alleviating or aggravating factors. She did not try taking nitro. She is unsure if this is similar to when she has had stenting in the past. She denies any associated shortness of breath, nausea, vomiting, palpitations, dizziness, lightheadedness, syncope or near syncope. Denies any abdominal pain, cough, fever, or chills. Denies symptoms of orthopnea or PND. She states she is compliant with her medication. She is a non-smoker, denies alcohol use. Her symptoms persisted and prompt her to come to the ER for evaluation. DIAGNOSTICS * EKG reveals sinus rhythm, heart rate 72, T wave inversion in lead III, no evidence of acute ischemia. Prior EKG in 04/2021 with similar findings. * Telemetry tracings indicate sinus mechanism * Lexiscan stress test in the office in 10/2020 was negative for reversible ischemia * Cardiac catheterization in 2019 revealed patent stent in the circumflex, moderate area of atherosclerotic plaque in the mid LAD which seemed unchanged compared to prior cardiac catheterization 2014 * Most recent echocardiogram 04/2021 EF 6065 percent, mild aortic regurgitation, mild mitral regurgitation, mild pulmonary hypertension * Laboratory reviewed, troponin negative 3, sodium 136, potassium 4.5, BUN 18, serum creatinine 0.9, hemoglobin A1c 7.6, hemoglobin 16.5 * Current home medications include aspirin 81 mg twice a day, atorvastatin 80 mg nightly, temazepam 20 mg nightly, study at 10 mg daily, Imdur 30 mg nightly, metoprolol succinate 50 mg daily REVIEW OF SYSTEMS At the time of my exam: CONSTITUTIONAL: Denies fever or chills.+diaphoresis CARDIOVASCULAR: +chest pain, Denies shortness of breath, orthopnea, PND or p alpitations. RESPIRATORY: Denies cough. GASTROINTESTINAL: Denies abdominal pain, diarrhea, constipation, nausea or vomiting. MUSCULOSKELETAL: Denies myalgias. NEUROLOGIC: Denies numbness, Denies tingling, Denies headacbe or weakness. ENDOCRINE: Denies fatigue, weight change, polydipsia or polyurina. GENITOURINARY: Denies burning, hematuria or urgency with micturation. HEMATOLOGIC: Denies history of anemia or bleeding. PHYSICAL EXAMINATION Blood pressure 120/74, heart rate 64, afebrile, saturations 98% on room air CONSTITUTIONAL: No apparent distress. HEENT: Head is normocephalic. Pupils are equal, round. Sclerae anicteric. Mucous membranes of the mouth are moist. No JVD. No carotid bruit. CHEST EXAMINATION: Lungs are clear to auscultation. No chest wall tenderness is noted on palpation or with deep breathing. HEART EXAMINATION: Regular rate and rhythm. S1, S2 heard. No murmurs, gallops or rub. ABDOMEN: Soft, nontender. Positive bowel sounds. EXTREMITIES: 2+ peripheral pulses, no lower extremity edema and no calf tenderness. NEUROLOGIC EXAMINATION: Patient is awake, alert and oriented x3. ASSESSMENT Chest discomfort with diaphoresis, concerning for Unstable Angina History of TIA History of Coronary artery disease status post PCI to the left circumflex in 2008 Hypertension Type 2 diabetes Dyslipidemia PLAN -2D echocardiogram -Plan for cardiac catheterization this morning with Dr. Leyva, patient is agreeable. -Continue current cardiac medications -Keep NPO -I have discussed the risks, benefits and alternative therapies for the above- mentioned procedure and for both sedation/analgesia as well as necessary blood product administration, if indicated, as they pertain to this patient. The patient has indicated understanding and acceptance of the risks and procedures discussed. Questions have been answered appropriately and she is agreeable to move forward with the above-stated procedure. -Further recommendations based on clinical course Nurse Practitioner note has been reviewed, I agree with a documented findings and plan of care. Patient was seen and examined. Past Medical History Past Medical History: Coronary Artery Disease (CAD), Cancer, CVA/TIA, Diabetes Mellitus, GERD/Reflux, Hypertension, Osteoarthritis (OA) Additional Past Medical History / Comment(s): SKIN CANCER , KIDNEY STONES, urinary leakage History of Any Multi-Drug Resistant Organisms: None Reported Past Surgical History: Adenoidectomy, Section, Cholecystectomy, Heart Catheterization, Heart Catheterization With Stent, Joint Replacement, Orthopedic Surgery, Tonsillectomy, Tubal Ligation Additional Past Surgical History / Comment(s): CATARACT BILATERAL EYE, TOTAL mallorie KNEE replacement, BILATERAL CARPAL TUNNEL RELEASE,C- SECTION X3, 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 stress test in 10/29 Past Anesthesia/Blood Transfusion Reactions: Motion Sickness Date of Last Stent Placement:: 10/2008 Type of Cardiac Device: Loop Device Placement Date:: loop monitor placed May Past Psychological History: No Psychological Hx Reported Smoking Status: Never smoker Past Alcohol Use History: None Reported Past Drug Use History: None Reported - Past Family History Son(s) Family Medical History: Deep Vein Thrombosis (DVT) Mother Additional Family Medical History / Comment(s): Alzheimer Disease Father Additional Family Medical History / Comment(s): Passed at age 48 due to unknown medical complications. Brother(s) Family Medical History: Cancer Additional Family Medical History / Comment(s): Pancreatic cancer, at age 62. Medications and Allergies Home Medications Medication Instructions Recorded Confirmed Type Atorvastatin [Lipitor] 80 mg PO HS 07/21/14 04/01/22 History Insulin Glargine,Hum.rec.anlog 30 units SQ HS 07/21/14 04/01/22 History [Lantus Solostar Pen] Metoprolol Succinate [Toprol XL] 50 mg PO DAILY 09/27/15 04/01/22 History Insulin Aspart [NovoLOG Flexpen] See Protocol SQ AC-TID PRN 01/31/19 04/01/22 History Isosorbide Dinitrate 30 mg PO HS 06/03/19 04/01/22 History Empagliflozin [Jardiance] 25 mg PO DAILY 04/17/21 04/01/22 History Ezetimibe [Zetia] 10 mg PO DAILY 30 Days #30 tab 04/19/21 04/01/22 Rx Benazepril HCl 20 mg PO HS 05/23/21 04/01/22 History Pantoprazole [Protonix] 40 mg PO DAILY 09/04/21 04/01/22 History Aspirin 81 mg PO BID 04/01/22 04/01/22 History Cyanocobalamin [Vitamin B-12] 500 mcg PO BID 04/01/22 04/01/22 History Insulin Aspart [NovoLOG Flexpen] 10 units SQ AC-TID 04/01/22 04/01/22 History Allergies Allergy/AdvReac Type Severity Reaction Status Date / Time No Known Allergies Allergy Verified 04/01/22 15:32 Physical Exam Vitals: Vital Signs Temp Pulse Pulse Resp BP BP Pulse Ox 04/02/22 00:58 97.5 F L 66 17 119/68 96 04/01/22 18:44 97.6 F 68 17 152/75 97 04/01/22 17:06 71 18 168/73 97 04/01/22 12:34 97.9 F 72 20 147/69 96 Intake and Output 04/01/22 04/02/22 04/02/22 22:59 06:59 14:59 Other: # Voids 1 1 Weight 95.254 kg Results 04/01/22 12:46 04/01/22 12:46 Cardiac Enzymes 04/01/22 04/01/22 04/01/22 Range/Units 12:46 12:46 15:28 AST 33 (14-36) U/L Troponin I <0.012 <0.012 (0.000-0.034) ng/mL 04/01/22 Range/Units 18:38 AST (14-36) U/L Troponin I <0.012 (0.000-0.034) ng/mL Coagulation 04/01/22 Range/Units 12:46 PT 10.8 (9.0-12.0) sec APTT 25.8 (22.0-30.0) sec CBC 04/01/22 Range/Units 12:46 WBC 10.0 (3.8-10.6) k/uL RBC 5.68 H (3.80-5.40) m/uL Hgb 16.5 H (11.4-16.0) gm/dL Hct 50.9 H (34.0-46.0) % Plt Count 216 (150-450) k/uL Comprehensive Metabolic Panel 04/01/22 Range/Units 12:46 Sodium 136 L (137-145) mmol/L Potassium 4.5 (3.5-5.1) mmol/L Chloride 103 (98-107) mmol/L Carbon Dioxide 22 (22-30) mmol/L BUN 18 H (7-17) mg/dL Creatinine 0.99 (0.52-1.04) mg/dL Glucose 214 H (74-99) mg/dL Calcium 10.0 (8.4-10.2) mg/dL AST 33 (14-36) U/L ALT 32 (4-34) U/L Alkaline Phosphatase 104 (38-126) U/L Total Protein 6.8 (6.3-8.2) g/dL Albumin 4.0 (3.5-5.0) g/dL Current Medications Generic Name Dose Route Start Last Admin Trade Name Freq PRN Reason Stop Dose Admin Aspirin 325 mg 04/02/22 09:00 Aspirin 325 Mg Tab PO DAILY PAOLA Atorvastatin Calcium 80 mg 04/01/22 21:00 04/01/22 20:30 Atorvastatin 80 Mg Tab PO 80 mg HS PAOLA Administration Dextrose/Water 25 ml 04/01/22 15:54 Dextrose 50% Syringe 50 Ml IVP PER PROTOCOL PRN Hypoglycemia Protocol Dextrose/Water 50 ml 04/01/22 15:54 Dextrose 50% Syringe 50 Ml IVP PER PROTOCOL PRN Hypoglycemia Protocol Ezetimibe 10 mg 04/02/22 09:00 Ezetimibe 10 Mg Tab PO DAILY PAOLA Heparin Sodium (Porcine) 5,000 unit 04/01/22 16:00 04/02/22 00:58 Heparin Sodium,Porcine/Pf 5,000 Unit/0.5 Ml Syringe SQ 5,000 unit Q8HR PAOLA Administration Insulin Aspart 10 unit 04/01/22 17:30 04/01/22 17:14 Insulin Aspart (Novolog) 100 Unit/Ml Vial SQ 10 unit AC-TID PAOLA Administration Insulin Aspart 0 unit 04/01/22 17:30 04/01/22 20:29 Insulin Aspart (Novolog) 100 Unit/Ml Vial SQ 1 unit ACHS PAOLA Administration Protocol Insulin Detemir 30 unit 04/01/22 21:00 04/01/22 20:30 Insulin Detemir (Levemir) 100 Unit/Ml Syr SQ 30 unit HS PAOLA Administration Isosorbide Dinitrate 30 mg 04/01/22 21:00 04/01/22 20:30 Isosorbide Dinitrate 10 Mg Tab PO 30 mg HS PAOLA Administration Lisinopril 20 mg 04/01/22 21:00 04/01/22 20:30 Lisinopril 20 Mg Tab PO 20 mg HS PAOLA Administration Metoprolol Succinate 50 mg 04/02/22 09:00 Metoprolol Succinate (Er) 50 Mg Tab.Er.24h PO DAILY PAOLA Naloxone HCl 0.2 mg 04/01/22 15:56 Naloxone 0.4 Mg/Ml 1 Ml Vial IVP Q2M PRN Opioid Reversal Nitroglycerin 0.4 mg 04/01/22 15:01 Nitroglycerin Sl Tabs 0.4 Mg Tab SUBLINGUAL Q5M PRN Chest Pain Pantoprazole Sodium 40 mg 04/02/22 07:30 Pantoprazole 40 Mg Tablet PO DAILY@0730 PAOLA Intake and Output 04/01/22 04/02/22 04/02/22 22:59 06:59 14:59 Other: # Voids 1 1 Weight 95.254 kg 04/01/22 12:46 04/01/22 12:46
[2022-04-02] MEDS: INSULIN ASPART (NovoLOG) 100 UNIT/ML VIAL SQ SCH ×4 (08:45→13:06)
[2022-04-02] MEDS ORDERED: EZETIMIBE 10 MG TAB PO SCH (09:00)
[2022-04-02] MEDS ORDERED: ASPIRIN 325 MG TAB PO SCH (09:00)
[2022-04-02] MEDS ORDERED: METOPROLOL SUCCINATE (ER) 50 MG TAB.ER.24H PO SCH (09:00)
[2022-04-02 09:15] LABS: HCT 47.6 % (37.2-46.3); HGB 15.9 g/dL (12.0-15.0); MCH 29.4 pg (27.0-32.0); MCHC 33.4 g/dL (32.0-37.0); MCV 88.1 fL (80.0-97.0); Mean Platelet Volume 9.4 fL (9.5-12.2); NRBC Per 100 WBC 0 /100 WBCS (0.0-0.0); Platelet Count 228 X 10*3/uL (140-440); WBC 9.35 X 10*3/uL (4.50-10.00)
[2022-04-02 09:17] LABS: ALT 30 U/L (8-44); AST 28 U/L (13-35); African American GFR (CKD) 85.4 (60.0-200.0); Albumin 4.1 g/dL (3.8-4.9); Albumin/Globulin Ratio 1.64 (1.60-3.17); Alkaline Phosphatase 82 U/L (41-126); Blood Urea Nitrogen 19.2 mg/dL (9.0-27.0); Calcium 9.8 mg/dL (8.7-10.3); Carbon Dioxide 26.6 mmol/L (20.0-27.5); Chloride 103 mmol/L (96-109); Globulin 2.5 g/dL (1.6-3.3); Glucose 138 mg/dL (70-110); LDL Cholesterol,Calculated 31.6 mg/dL (0.0-131.0); Non-African American GFR(CKD) 73.7 (60.0-200.0); Potassium 4.2 mmol/L (3.5-5.5); Sodium 139 mmol/L (135-145); Total Protein 6.6 g/dL (6.2-8.2)
[2022-04-02] MEDS ORDERED: VERAPAMIL 2.5 MG/ML 2 ML AMP ONE (10:12)
[2022-04-02] MEDS ORDERED: fentaNYL (PF) 50 MCG/ML 2 ML AMP ONE (10:25)
[2022-04-02] MEDS ORDERED: fentaNYL (PF) 50 MCG/ML 2 ML AMP IV ONE (10:34)
[2022-04-02] MEDS ORDERED: MIDAZOLAM 2 MG/2 ML VIAL IV ONE (10:34)
[2022-04-02] MEDS ORDERED: LIDOCAINE 1% INJ 10MG/ML (30 ML VIAL-PF) SQ ONE (10:37)
[2022-04-02] MEDS ORDERED: VERAPAMIL 2.5 MG/ML 2 ML AMP INTRAARTER ONE (10:42)
[2022-04-02] MEDS ORDERED: HEPARIN SODIUM 1,000 UN/ML (10ML VL) IV ONE (10:43)
[2022-04-02] MEDS ORDERED: SODIUM CHLORIDE 0.9% 1,000 ML IV ONE (10:44)
[2022-04-02] MEDS ORDERED: IOPAMIDOL-370 125ML BTL INJ ONE (10:54)
[2022-04-02] MEDS ORDERED: RX INFO: IV CONTRAST WAS GIVEN 1 EACH MISC MISCELLANE PRN ×2 (11:06→11:30)
--- NOTE | 2022-04-02 11:10 | CA ---
Transthoracic Echo Report Name: Vita Romero Age: 71 Gender: F : 1950 Exam Date: 04/02/2022 07:46 Exam Location: [facility] Ht (in): 62 Wt (lb): 210 Ordering Physician: Brady Turner Attending/Referring Phys: [id number], Johnny Key Account Manager Kathleen Fields, JOSEFA Procedure CPT: Indications: Chest Pain Cardiac Hx: Technical Quality: Fair Contrast 1: Total Dose (mL): Contrast 2: Total Dose (mL): MEASUREMENTS (Male / Female) Normal Values 2D ECHO LV Diastolic Diameter PLAX 4.6 cm 4.2 - 5.9 / 3.9 - 5.3 cm LV Systolic Diameter PLAX 2.5 cm IVS Diastolic Thickness 1.2 cm 0.6 - 1.0 / 0.6 - 0.9 cm LVPW Diastolic Thickness 1.4 cm 0.6 - 1.0 / 0.6 - 0.9 cm LV Relative Wall Thickness 0.6 RV Internal Dim ED PLAX 2.7 cm LA Systolic Diameter LX 3.9 cm 3.0 - 4.0 / 2.7 - 3.8 cm LA Volume 52.3 cm??? 18 - 58 / 22 - 52 cm??? M-MODE Aortic Root Diameter MM 3.2 cm MV E Point Septal Separation 0.4 cm AV Cusp Separation MM 2.4 cm DOPPLER AV Peak Velocity 131.0 cm/s AV Peak Gradient 6.9 mmHg AI Peak Velocity 234.8 cm/s AI Peak Gradient 22.1 mmHg AI Pressure Half Time 721.8 ms MV Area PHT 3.6 cm??? Mitral E Point Velocity 82.6 cm/s Mitral A Point Velocity 78.3 cm/s Mitral E to A Ratio 1.1 MV Deceleration Time 211.1 ms MV E' Velocity 5.9 cm/s Mitral E to MV E' Ratio 14.0 TR Peak Velocity 238.8 cm/s TR Peak Gradient 22.8 mmHg Right Ventricular Systolic Press 27.8 mmHg FINDINGS Left Ventricle Left ventricular ejection fraction is estimated at 60-65 %. Left ventricular cavity size normal. Mildly increased septal wall thickness. Moderately increased posterior wall thickness. Right Ventricle Normal right ventricular size and function. Right ventricular systolic pressure within normal limits. Right Atrium Normal right atrial size. Left Atrium Normal left atrial size. No evidence for an atrial septal defect. Mitral Valve Mitral valve thickened. Mitral annular calcification. Trace to mild mitral regurgitation. Aortic Valve Trileaflet aortic valve. No aortic valve stenosis or regurgitation. Tricuspid Valve Trace to mild tricuspid regurgitation. Pulmonic Valve Mild pulmonic regurgitation. Pericardium Normal pericardium no pericardial effusion. Aorta Normal size aortic root and proximal ascending aorta. CONCLUSIONS Left ventricular systolic function is normal Previewed by: Dr. Yanick Leyva MD (Electronically Signed) Final Date: 02 April 2022 11:09
[2022-04-02] MEDS ORDERED: SODIUM CHLORIDE 0.9% 1,000 ML IV SCH ×2 (11:15→11:30)
[2022-04-02 12:52] LABS: Glucose,Whole Blood 128 mg/dL (70-110)
--- NOTE | 2022-04-02 14:38 | P.DS ---
Providers Date of admission: 04/01/22 15:08 Expected date of discharge: 04/02/22 Attending physician: Amina Peguero MD Consults: 04/01/22 15:01 Consult Physician Urgent Consulting Provider: Yuriy Jones Consult Reason/Comments: chest pain Do you want consulting provider notified?: Yes Primary care physician: [facility] Course: Discharge Diagnosis: Chest pain, acute coronary event ruled out. No medication changes made. Patient to continue daily cardiac medication regimen with aspirin, atorvastatin, metoprolol, isosorbide mononitrate, and Zetia. History of CAD status post stenting in 2008 Hypertension. Monitor vital signs and continue daily medication regimen with metoprolol, lisinopril, and isosorbide mononitrate. Hyperlipidemia. Continue daily medication regimen with atorvastatin and Zetia. Hospital Course: Patient is a very pleasant 71-year-old female with a past medical history of CAD status post stenting in 2008 on aspirin, hypertension, hyperlipidemia, and insulin-dependent diabetes mellitus. She presented to the emergency department with the chief complaint of chest pain. Patient reports over the past 2 days she has noticed increased fatigue and shortness of breath with exertion and accompanied by intermittent episodes of chest pain and diaphoresis. Patient describes this pain as a pressure-like sensation to her left anterior chest and denies any radiation of pain. She denies having any recent illnesses or exposure to known ill contacts, headache, lightheadedness, dizziness, palpitations, shortness of breath at rest, abdominal pain, nausea, vomiting, or experiencing any numbness/tingling/weakness/swelling in her extremities. Jasson connors underwent full evaluation in the emergency department. EKG was completed showing normal sinus rhythm at 72 bpm with T-wave inversion in lead III. Chest x-ray negative for acute cardiopulmonary process. CBC revealing elevated hemoglobin of 16.5 and hematocrit of 50.9. CMP revealing hyperglycemia with glucose of 214 and slightly elevated total bili of 1.4. Troponin was negative at less than 0.012. Patient admitted under our services with consultation to cardiology. Troponins trended and all negative at less than 0.0123 draws. Lipid profile unremarkable. Echocardiogram completed revealing preserved EF of 60-65% with no significant structural or valvular abnormalities. Patient was evaluated by cardiology and taken for cardiac cath. Cardiology ruling out obstructive coronary artery disease and clearing patient for follow-up outpatient in our office. Patient is medically stable at this time and currently free from any complaints including chest pain, dizziness, lightheadedn ess, palpitations, or shortness of breath. Patient stable for discharge home and to follow up outpatient with PCP and cardiology. Physical exam: Vital signs reviewed and stable. General: Nontoxic, no distress and appears stated age. Derm: Skin warm and dry, normal coloration for ethnicity. Head: Atraumatic, normocephalic and symmetric. Eyes: EOMs intact, no lid lag, and anicteric sclera Mouth: no lip lesions, mucus membranes moist Cardiovascular: regular rate and rhythm with normal S1S2, systolic murmur, positive posterior tibial pulses bilaterally, and cap refill < 2 seconds. Lungs: Respirations even, regular, and unlabored on room air. Lungs CTA bilaterally, no rhonchi, no rales, no wheezing, and no accessory muscle usage. Abdominal: soft, nontender to palpation, no guarding, no appreciable organomegaly Ext: ROM intact. No gross muscle atrophy, 1+ pitting edema to BLE, no contractures Neuro: Speech clear, face symmetrical and CN II-XII grossly intact with no noted focal neuro deficits Psych: Alert and oriented to person, place, time, and situation. Appropriate and pleasant affect. A total of 34 minutes of time were spent preparing this complex discharge summary. Pt was discharged on 04/02/22 at 2:08 PM. Patient Condition at Discharge: Stable Plan - Discharge Summary New Discharge Prescriptions: Continue Insulin Glargine,Hum.rec.anlog [Lantus Solostar Pen] 30 units SQ HS Atorvastatin [Lipitor] 80 mg PO HS Metoprolol Succinate [Toprol XL] 50 mg PO DAILY Insulin Aspart [NovoLOG Flexpen] See Protocol SQ AC-TID PRN PRN Reason: high blood sugar Isosorbide Dinitrate 30 mg PO HS Ezetimibe [Zetia] 10 mg PO DAILY 30 Days #30 tab Benazepril HCl 20 mg PO HS Pantoprazole [Protonix] 40 mg PO DAILY Cyanocobalamin [Vitamin B-12] 500 mcg PO BID Insulin Aspart [NovoLOG Flexpen] 10 units SQ AC-TID Empagliflozin [Jardiance] 25 mg PO DAILY Aspirin 81 mg PO BID Discharge Medication List Atorvastatin [Lipitor] 80 mg PO HS 07/21/14 [History] Insulin Glargine,Hum.rec.anlog [Lantus Solostar Pen] 30 units SQ HS 07/21/14 [History] Metoprolol Succinate [Toprol XL] 50 mg PO DAILY 09/27/15 [History] Insulin Aspart [NovoLOG Flexpen] See Protocol SQ AC-TID PRN 01/31/19 [History] Isosorbide Dinitrate 30 mg PO HS 06/03/19 [History] Empagliflozin [Jardiance] 25 mg PO DAILY 04/17/21 [History] Ezetimibe [Zetia] 10 mg PO DAILY 30 Days #30 tab 04/19/21 [Rx] Benazepril HCl 20 mg PO HS 05/23/21 [History] Pantoprazole [Protonix] 40 mg PO DAILY 09/04/21 [History] Aspirin 81 mg PO BID 04/01/22 [History] Cyanocobalamin [Vitamin B-12] 500 mcg PO BID 04/01/22 [History] Insulin Aspart [NovoLOG Flexpen] 10 units SQ AC-TID 04/01/22 [History] Follow up Appointment(s)/Referral(s): Yuriy Jones MD [STAFF PHYSICIAN] - 04/10/22 10:45 am (Follow up in the office for a site check as scheduled for you) Lukas Hernandez DO [Primary Care Provider] - 1-2 days Patient Instructions/Handouts: *Surgery [facility] - After Heart Catheterization - Outdoor Emergency Care Technician Instructions, Chest Pain (DC), Noncardiac Chest Pain (DC) Activity/Diet/Wound Care/Special Instructions: Activity: As tolerated. Take breaks as needed. Diet: Heart healthy and carb consistent diet. Avoid salts, or foods with hidden salts such as canned or boxed foods and frozen dinners. Extra salt makes your heart work harder and traps the fluid in your body for longer. Special Instructions: Take all of your medications as directed and remember to keep all of your doctor's appointments and follow-up as needed. Thank you for allowing us to participate in your care, it was truly a pleasure having you for our patient!!! Discharge Disposition: HOME SELF-CARE
[2022-04-02 14:54] VITALS: BP 113/70; PULSE 68
[2022-04-03] MEDS ORDERED: HEPARIN SODIUM,PORCINE 2,500 UNIT in SODIUM CHLORIDE 0.9% 250 ML IRRIGATION PRN (07:00)
[2022-04-03] MEDS ORDERED: HEPARIN SODIUM,PORCINE 10,000 UNIT in SODIUM CHLORIDE 0.9% 1,000 ML IRRIGATION PRN (07:00)
== END 2022-04-02 16:46 | disposition home or self-care (01) ==
LOC: EC 12:28 → 6NMEDSUR 15:08
PROVIDERS: ADMIT Internal Medicine; ATTEND Internal Medicine
DX: R07.89 Other chest pain (principal); I25.10 Atherosclerotic heart disease of native coronary artery without angina pectoris; E11.65 Type 2 diabetes mellitus with hyperglycemia; K21.9 Gastro-esophageal reflux disease without esophagitis; I10 Essential (primary) hypertension; E78.5 Hyperlipidemia, unspecified; Z85.828 Personal history of other malignant neoplasm of skin; Z86.73 Personal history of transient ischemic attack (TIA), and cerebral infarction without residual deficits; Z87.442 Personal history of urinary calculi; Z95.5 Presence of coronary angioplasty implant and graft; Z96.653 Presence of artificial knee joint, bilateral; Z79.4 Long term (current) use of insulin; Z79.82 Long term (current) use of aspirin; Z79.84 Long term (current) use of oral hypoglycemic drugs; Z79.899 Other long term (current) drug therapy; Z80.0 Family history of malignant neoplasm of digestive organs; Z82.0 Family history of epilepsy and other diseases of the nervous system; Z83.2 Family history of diseases of the blood and blood-forming organs and certain disorders involving the immune mechanism
CPT/HCPCS: 96372 ×3; 99285; 36415; 93005; 93306; 93458; 80061; 80053 ×2; 84484; 85025; 85027; 85610; 85730; 83036; 71046; G0378 ×2; C1769; C1894; J2250; J2001; J3010; J1644 ×3; Q9967

== ENCOUNTER 2022-05-17 14:19 | Emergency (ER) | payer MEDICARE ==
[2022-05-17 14:37] VITALS: TEMP 98.6
[2022-05-17] MEDS ORDERED: TOPICAL SKIN ADHESIVE 1 EACH AMP TOPICAL ONE (15:29)
[2022-05-17] MEDS ORDERED: HYDROcodone/APAP 7.5-325MG 1 EACH TAB PO ONE (15:31)
--- NOTE | 2022-05-17 15:35 | ED ---
Fall HPI - General Chief Complaint: Fall Stated Complaint: Fall Time Seen by Provider: 05/17/22 15:00 Source: patient Mode of arrival: wheelchair - History of Present Illness Initial Comments: 71-year-old female who states she tripped at a local gym when she was at an event she fell striking her right side of her face and right shoulder on the ground. She denies a loss of consciousness no head neck or back pain she does complain of pain in the right shoulder. No loss of function to the upper or lower extremities except for the pain in the right upper extremity. She states the pain is 8-9/10 severity when she tries to move it at rest this about 5-6/10. No complain some knee other injuries no blurry vision nausea vomiting no other symptoms no other concerns voiced. MD Complaint: fall - Related Data Home Medications Medication Instructions Recorded Confirmed Atorvastatin [Lipitor] 80 mg PO HS 07/21/14 04/01/22 Insulin Glargine,Hum.rec.anlog 30 units SQ HS 07/21/14 04/01/22 [Lantus Solostar Pen] Metoprolol Succinate [Toprol XL] 50 mg PO DAILY 09/27/15 04/01/22 Insulin Aspart [NovoLOG Flexpen] See Protocol SQ AC-TID PRN 01/31/19 04/01/22 Isosorbide Dinitrate 30 mg PO HS 06/03/19 04/01/22 Empagliflozin [Jardiance] 25 mg PO DAILY 04/17/21 04/01/22 Benazepril HCl 20 mg PO HS 05/23/21 04/01/22 Pantoprazole [Protonix] 40 mg PO DAILY 09/04/21 04/01/22 Aspirin 81 mg PO BID 04/01/22 04/01/22 Cyanocobalamin [Vitamin B-12] 500 mcg PO BID 04/01/22 04/01/22 Insulin Aspart [NovoLOG Flexpen] 10 units SQ AC-TID 04/01/22 04/01/22 Previous Rx's Medication Instructions Recorded Ezetimibe [Zetia] 10 mg PO DAILY 30 Days #30 tab 04/19/21 HYDROcodone/APAP 7.5-325MG [[place] 1 tab PO Q4-6H PRN #12 tab 05/17/22 7.5-325] Allergies Allergy/AdvReac Type Severity Reaction Status Date / Time No Known Allergies Allergy Verified 05/17/22 14:35 Review of Systems ROS Statement: Those systems with pertinent positive or pertinent negative responses have been documented in the HPI. ROS Other: All systems not noted in ROS Statement are negative. Past Medical History Past Medical History: Coronary Artery Disease (CAD), Cancer, CVA/TIA, Diabetes Mellitus, GERD/Reflux, Hypertension, Osteoarthritis (OA) Additional Past Medical History / Comment(s): SKIN CANCER , KIDNEY STONES, urinary leakage History of Any Multi-Drug Resistant Organisms: None Reported Past Surgical History: Adenoidectomy, Section, Cholecystectomy, Heart Catheterization, Heart Catheterization With Stent, Joint Replacement, Orthopedic Surgery, Tonsillectomy, Tubal Ligation Additional Past Surgical History / Comment(s): CATARACT BILATERAL EYE, TOTAL mallorie KNEE replacement, BILATERAL CARPAL TUNNEL RELEASE,C- SECTION X3, 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 stress test in 10/29 Past Anesthesia/Blood Transfusion Reactions: Motion Sickness Date of Last Stent Placement:: 10/2008 Type of Cardiac Device: Loop Device Placement Date:: loop monitor placed May Past Psychological History: No Psychological Hx Reported Smoking Status: Never smoker Past Alcohol Use History: None Reported Past Drug Use History: None Reported - Past Family History Son(s) Family Medical History: Deep Vein Thrombosis (DVT) Mother Additional Family Medical History / Comment(s): Alzheimer Disease Father Additional Family Medical History / Comment(s): Passed at age 48 due to unknown medical complications. Brother(s) Family Medical History: Cancer Additional Family Medical History / Comment(s): Pancreatic cancer, at age 62. General Exam - General Exam Comments Initial Comments: This is a well-developed well-nourished awake alert oriented 3 female with a Joe Coma Scale of 15 Limitations: physical limitation General appearance: alert, anxious Head exam: Present: normocephalic, other (Approximately 2.570 laceration seen over the right mid to lateral eyebrow superior portion no active bleeding no st ep-off no crepitation no evidence of any foreign body in the wound.) Eye exam: Present: normal appearance, PERRL, EOMI. Absent: scleral icterus, conjunctival injection, periorbital swelling ENT exam: Present: normal exam, mucous membranes moist Neck exam: Present: normal inspection, full ROM, other. Absent: tenderness, me ningismus, lymphadenopathy Respiratory exam: Present: normal lung sounds bilaterally. Absent: respiratory distress, wheezes, rales, rhonchi, stridor, chest wall tenderness Cardiovascular Exam: Present: regular rate, normal rhythm, normal heart sounds. Absent: systolic murmur, diastolic murmur, rubs, gallop, clicks Extremities exam: Present: tenderness, normal capillary refill, other (Tenderness palpation of the right shoulder no definitive step-off or crepitation at this time however. Range of motion diminished secondary to pain. Distal to the shoulder no definitive tenderness palpation no sensorimotor or vascular deficits. ). Absent: full ROM Back exam: Present: normal inspection, full ROM. Absent: tenderness Neurological exam: Present: alert, oriented X3, CN II-XII intact Psychiatric exam: Present: normal affect, normal mood Skin exam: Present: warm, dry, normal color. Absent: intact (Laceration as stated above.), rash Course Vital Signs 05/17/22 14:35 Temperature 98.6 F Pulse Rate 86 Respiratory 18 Rate Blood Pressure 145/69 O2 Sat by Pulse 98 Oximetry - Reevaluation(s) Reevaluation #1: 05/17/22 16:47 We did discuss the events as far as the fall and physical exam findings at this time. We did discuss possibility of doing a CAT scan the patient has declined at this time. Procedures - Laceration Laceration #1 Consent Obtained: verbal consent Indication: laceration Site: face Size (cm): 25 Description: linear Depth: simple, single layer Pre-repair: wound explored Size of Sutures: other Patient Tolerated Procedure: well (2.5 cm right eyebrow laceration repaired using isocyanate glue. The wound approximated well. I did cleaned using Betadine prior.) Medical Decision Making - Medical Decision Making Patient does demonstrate a fracture of the proximal humerus/humeral head she was placed in a sling she was given pain medication I did repair the laceration using a Dermabond like glue. She tolerated this part well. She'll be discharged with follow-up with Dr. Atkinson who has seen her in the past. - Radiology Data Radiology results: image reviewed (I did review the right shoulder x-ray image. There is a fracture the proximal humerus/humeral head no definitive evidence of subluxation. Does appear to be somewhat impacted..) Disposition Clinical Impression: Fall, Laceration of right eyebrow, Closed fracture of right proximal humerus Disposition: HOME SELF-CARE Condition: Good Instructions (If sedation given, give patient instructions): Fall Prevention for Older Adults (ED), Facial Laceration (ED), Proximal Humerus Fracture (ED) Additional Instructions: Continue with the sling as directed, ice pack when necessary for up to 20 minutes, orthopedic follow-up Prescriptions: HYDROcodone/APAP 7.5-325MG [[place] 7.5-325] 1 tab PO Q4-6H PRN #12 tab PRN Reason: Pain Is patient prescribed a controlled substance at d/c from ED?: Yes When asked, does pt state using other controlled substances?: No If prescribed controlled substance>3 days was MAPS reviewed?: Prescribed <3 Days If opioid is for acute pain is fill amount 7 days or less?: Yes If Rx opioid, was Start Talking consent form obtained?: Yes Referrals: Lukas Hernandez DO [Primary Care Provider] - 1-2 days Saravanan Atkinson MD [STAFF PHYSICIAN] - 1-2 days Decision Date: 05/17/22 Decision Time: 16:51
--- NOTE | 2022-05-17 16:27 | XR ---
Right shoulder. History pain following trauma. COMPARISON: None. TECHNIQUE: 3 views the right shoulder were obtained. Please: The osseous structures are diffusely osteopenic. There are multiple mildly displaced fractures of both anatomic and surgical neck of the humerus invol ving both the greater and lesser tuberosities. The AC joint is intact. There is no clavicular fracture. IMPRESSION: Mildly displaced comminuted fracture of the proximal humerus.
--- NOTE | 2022-05-17 16:28 | XR ---
Right humerus. HISTORY: Pain findings trauma. COMPARISON: None. TECHNIQUE: 2 views right humerus were obtained. These: There is a comminuted displaced fracture the proximal right wrist involving humeral head and surgical neck. Remainder of the humerus is intact. IMPRESSION: Comminuted fracture of the right humeral head as described above.
[2022-05-17] MEDS ORDERED: KETOROLAC 15 MG/ML 1 ML VIAL IM STA (16:42)
[2022-05-17 17:30] VITALS: BP 167/87; PULSE 78; RESP 19
== END 2022-05-17 17:29 | disposition home or self-care (01) ==
LOC: EC 14:19
DX: S51.011A Laceration without foreign body of right elbow, initial encounter (principal); S42.201A Unspecified fracture of upper end of right humerus, initial encounter for closed fracture; I25.10 Atherosclerotic heart disease of native coronary artery without angina pectoris; I63.9 Cerebral infarction, unspecified; E11.9 Type 2 diabetes mellitus without complications; K21.9 Gastro-esophageal reflux disease without esophagitis; I10 Essential (primary) hypertension; M19.90 Unspecified osteoarthritis, unspecified site; Z79.83 Long term (current) use of bisphosphonates; Z79.4 Long term (current) use of insulin; Z79.891 Long term (current) use of opiate analgesic; Z79.84 Long term (current) use of oral hypoglycemic drugs; Z79.811 Long term (current) use of aromatase inhibitors; W01.0XXA Fall on same level from slipping, tripping and stumbling without subsequent striking against object, initial encounter
CPT/HCPCS: 99284; 96372; 73030; 73060; 12011; J1885

== ENCOUNTER → 2022-05-26 | Outpatient (CLI) | payer MEDICARE ==
--- NOTE | 2022-05-26 09:20 | CT ---
EXAMINATION TYPE: CT shoulder RT wo con DATE OF EXAM: 05/26/2022 COMPARISON: Radiograph 05/17/2022 HISTORY: 71-year-old female patient, S4 2.41A, Fall, Humeral head fx TECHNIQUE: Contiguous axial scanning of the right shoulder without IV contrast. Coronal and sagittal reconstructions performed. 3-D reconstructions generated on a dedicated workstation. CT DLP: 375 mGycm Automated exposure control for dose reduction was used. FINDINGS: Comminuted fracture proximal right humerus redemonstrated. There is a surgical neck component impacte d by 2.7 cm. There is a greater tuberosity component displaced by 1.2 cm. Humeral articular surface c omponent is mildly subluxed inferiorly. There is a 6 mm step off along a superior margin extending t o the superior aspect of the glenohumeral joint. Moderate degenerative change AC joint. Overall preserved volume of the rotator cuff musculature. Nodularity of the thyroid gland with underlying nodules possibly measuring up to 2.3 cm. Thyroid ultr asound evaluation to further evaluate. IMPRESSION: 1. AT LEAST 3 PART FRACTURE PROXIMAL RIGHT HUMERUS DESCRIBED ABOVE. 2. MODERATE AC JOINT OA.
== END | disposition home or self-care (01) ==
LOC: RADCTMAIN 07:45
PROVIDERS: ATTEND Orthopaedic Surgery Hand Surgery
DX: S42.231A 3-part fracture of surgical neck of right humerus, initial encounter for closed fracture (principal); M19.011 Primary osteoarthritis, right shoulder; X58.XXXA Exposure to other specified factors, initial encounter

== ENCOUNTER 2024-10-26 07:38 | Inpatient (IN) | payer MEDICARE ==
--- NOTE | 2024-10-26 07:51 | ED ---
Chest Pain HPI - General Chief Complaint: Chest Pain Stated Complaint: chest pain Time Seen by Provider: 10/26/24 07:45 Source: patient, RN notes reviewed Mode of arrival: ambulatory Limitations: no limitations - History of Present Illness Initial Comments: 74-year-old female presents emergency department with chief complaint had a sudden onset of pressure, squeezing type discomfort in her left side of her chest she became very cold, clammy at that time she states she does not feel well at this time she admits she had prior cardiac stent approximately 5 years ago she has a history of hyperlipidemia diabetes and hypertension which she takes medication for she took 1 baby aspirin this morning. Patient denies any fevers chills no cough or other symptoms no history of DVT or PE denies any leg pain leg swelling - Related Data Home Medications Medication Instructions Recorded Confirmed Atorvastatin [Lipitor] 80 mg PO HS 07/21/14 04/01/22 Insulin Glargine,Hum.rec.anlog 30 units SQ HS 07/21/14 04/01/22 [Lantus Solostar Pen] Metoprolol Succinate [Toprol XL] 50 mg PO DAILY 09/27/15 04/01/22 Insulin Aspart [NovoLOG Flexpen] See Protocol SQ AC-TID PRN 01/31/19 04/01/22 Isosorbide Dinitrate 30 mg PO HS 06/03/19 04/01/22 Empagliflozin [Jardiance] 25 mg PO DAILY 04/17/21 04/01/22 Benazepril HCl 20 mg PO HS 05/23/21 04/01/22 Pantoprazole [Protonix] 40 mg PO DAILY 09/04/21 04/01/22 Aspirin 81 mg PO BID 04/01/22 04/01/22 Cyanocobalamin [Vitamin B-12] 500 mcg PO BID 04/01/22 04/01/22 Insulin Aspart [NovoLOG Flexpen] 10 units SQ AC-TID 04/01/22 04/01/22 Previous Rx's Medication Instructions Recorded Ezetimibe [Zetia] 10 mg PO DAILY 30 Days #30 tab 04/19/21 HYDROcodone/APAP 7.5-325MG [Winston 1 tab PO Q4-6H PRN #12 tab 05/17/22 7.5-325] Allergies Allergy/AdvReac Type Severity Reaction Status Date / Time No Known Allergies Allergy Verified 10/26/24 07:44 Review of Systems ROS Statement: Those systems with pertinent positive or pertinent negative responses have been documented in the HPI. ROS Other: All systems not noted in ROS Statement are negative. EKG Findings - EKG Comments: EKG Findings:: EKG performed at 7: 52 sinus rhythm rate of 77 NM 164 QRS 96 QT/QTc 365 - EKG Results: EKG: interpreted by ERMD Past Medical History Past Medical History: Coronary Artery Disease (CAD), Cancer, CVA/TIA, Diabetes Mellitus, GERD/Reflux, Hypertension, Osteoarthritis (OA) Additional Past Medical History / Comment(s): SKIN CANCER , KIDNEY STONES, urinary leakage History of Any Multi-Drug Resistant Organisms: None Reported Past Surgical History: Adenoidectomy, Section, Cholecystectomy, Heart Catheterization, Heart Catheterization With Stent, Joint Replacement, Orthopedic Surgery, Tonsillectomy, Tubal Ligation Additional Past Surgical History / Comment(s): CATARACT BILATERAL EYE, TOTAL mallorie KNEE replacement, BILATERAL CARPAL TUNNEL RELEASE,C- SECTION X3, 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 stress test in 10/29 Past Anesthesia/Blood Transfusion Reactions: Motion Sickness Date of Last Stent Placement:: 10/2008 Type of Cardiac Device: Loop Device Placement Date:: loop monitor placed May Past Psychological History: No Psychological Hx Reported Smoking Status: Never smoker Past Alcohol Use History: None Reported Past Drug Use History: None Reported - Past Family History Son(s) Family Medical History: Deep Vein Thrombosis (DVT) Mother Additional Family Medical History / Comment(s): Alzheimer Disease Father Additional Family Medical History / Comment(s): Passed at age 48 due to unknown medical complications. Brother(s) Family Medical History: Cancer Additional Family Medical History / Comment(s): Pancreatic cancer, at age 62. General Exam Limitations: no limitations General appearance: alert, in no apparent distress Head exam: Present: atraumatic, normocephalic, normal inspection Eye exam: Present: normal appearance, PERRL, EOMI. Absent: scleral icterus, conjunctival injection, periorbital swelling ENT exam: Present: normal exam, normal oropharynx, mucous membranes moist Neck exam: Present: normal inspection, full ROM. Absent: tenderness, meningismus, lymphadenopathy Respiratory exam: Present: normal lung sounds bilaterally. Absent: respiratory distress, wheezes, rales, rhonchi, stridor Cardiovascular Exam: Present: regular rate, normal rhythm, normal heart sounds. Absent: systolic murmur, diastolic murmur, rubs, gallop, clicks Extremities exam: Present: normal inspection, full ROM, normal capillary refill. Absent: tenderness, pedal edema, joint swelling, calf tenderness Neurological exam: Present: alert, oriented X3 Skin exam: Present: warm, dry, intact, normal color. Absent: rash Course Vital Signs 10/26/24 10/26/24 10/26/24 07:40 08:01 08:13 Temperature 97.5 F L Pulse Rate 82 75 Pulse Rate [ 85 S3B Multi Sensor Operator ] Respiratory 18 20 Rate Blood Pressure 169/71 150/86 O2 Sat by Pulse 99 98 Oximetry 10/26/24 09:00 Temperature Pulse Rate 75 Pulse Rate [ S3B Multi Sensor Operator ] Respiratory 20 Rate Blood Pressure 133/66 O2 Sat by Pulse 98 Oximetry Chest Pain MDM - MDM Was pt. sent in by a medical professional or institution (, PA, VENUE COORDINATOR, urgent care, hospital, or fci...) When possible be specific @ -No Did you speak to anyone other than the patient for history (EMS, parent, family, police, friend...)? What history was obtained from this source @ -No Did you review nursing and triage notes (agree or disagree)? Why? @ -I reviewed and agree with nursing and triage notes Were old charts reviewed (outside hosp., previous admission, EMS record, old EKG, old radiological studies, urgent care reports/EKG's, fci records)? Report findings @ -No old charts were reviewed Differential Diagnosis (chest pain, altered mental status, abdominal pain women, abdominal pain men, vaginal bleeding, weakness, fever, dyspnea, syncope, headache, dizziness, GI bleed, back pain, seizure, CVA, palpatations, mental health, musculoskeletal)? @ -Differential Chest Pain: Stable Angina, Unstable Angina, STEMI, NSTEMI Aortic Dissection, Pneumothorax, Musculoskeletal, Esophageal Spasm GERD, Cholecystitis, Pancreatitis, Zoster, this is not meant to be an all-inclusive list. EKG interpreted by me (3pts min.). @ -As above X-rays interpreted by me (1pt min.). @ -Chest x-ray shows no acute cardiopulmonary process. CT interpreted by me (1pt min.). @ -None done U/S interpreted by me (1pt. min.). @ -None done What testing was considered but not performed or refused? (CT, X-rays, U/S, labs)? Why? @ -None What meds were considered but not given or refused? Why? @ -None Did you discuss the management of the patient with other professionals (professionals i.e. DrGreg, PA, VENUE COORDINATOR, lab, RT, psych nurse, social media editor, jacquard fixer, teacher, chief digital officer, high risk case manager)? Give summary @ -Dr. Zapata for admission Was smoking cessation discussed for >3mins.? @ -No Was critical care preformed (if so, how long)? @ -No Were there social determinants of health that impacted care today? How? (Homelessness, low income, unemployed, alcoholism, drug addiction, transportation, low edu. Level, literacy, decrease access to med. care, snf, rehab)? @ -No Was there de-escalation of care discussed even if they declined (Discuss DNR or withdrawal of care, Hospice)? DNR status @ -No What co-morbidities impacted this encounter? (DM, HTN, Smoking, COPD, CAD, Cancer, CVA, ARF, Chemo, Hep., AIDS, mental health diagnosis, sleep apnea, morbid obesity)? @ -CAD hypertension hyperlipidemia diabetes Was patient admitted / discharged? Hospital course, mention meds given and route, prescriptions, significant lab abnormalities, going to OR and other pertinent info. @ -Admitted patient's initial workup including labs EKG and chest x-ray is unremarkable patient will be admitted for echocardiogram, cardiology evaluation and repeat troponins. Undiagnosed new problem with uncertain prognosis? @ -No Drug Therapy requiring intensive monitoring for toxicity (Heparin, Nitro, Insulin, Cardizem)? @ -No Were any procedures done? @ -No Diagnosis/symptom? @ -Chest pain Acute, or Chronic, or Acute on Chronic? @ -Acute Uncomplicated (without systemic symptoms) or Complicated (systemic symptoms)? @ -Complicated Side effects of treatment? @ -No Exacerbation, Progression, or Severe Exacerbation? @ -No Poses a threat to life or bodily function? How? (Chest pain, [place], [place], pneumonia, PE, COPD, DKA, ARF, appy, cholecystitis, CVA, Diverticulitis, Homicidal, Suicidal, threat to staff... and all critical care pts) @ -[Yes ACS risk to cardiac function Disposition Clinical Impression: Chest pain Disposition: ADMITTED IP TO THIS HOSP Condition: Fair Referrals: Lukas Hernandez DO [Primary Care Provider] - 1-2 days Time of Disposition: 09:30
[2024-10-26] MEDS: ASPIRIN 81 MG PO STA (08:05)
--- NOTE | 2024-10-26 08:27 | XR ---
EXAMINATION TYPE: XR chest 2V DATE OF EXAM: 10/26/2024 8:21 AM COMPARISON: 04/01/2022 CLINICAL INDICATION: Female, 74 years old with history of Chest Pain, , TECHNIQUE: Frontal and lateral views FINDINGS: Heart normal size. Aorta and pulmonary vasculature within normal limits. Loop recorder device project s over the left side of the heart. No consolidation or pleural effusion. Old healed, impacted fractur e deformity proximal right humerus, noted to be new from 2021. IMPRESSION: No acute cardiopulmonary process. Interval impacted fracture deformity of the proximal right humerus. Appears to be old now. Clinically correlate. [facility], Workstation: [facility], 10/26/2024 8:24 AM
[2024-10-26 08:57] LABS: Basophils # (A) 0.01 10*3/uL (0.00-0.10); Basophils % (A) 0.1 %; Eosinophils # (A) 0.11 10*3/uL (0.04-0.35); Eosinophils % (A) 1.6 %; HCT 42.2 % (37.2-46.3); Lymphocytes # (A) 1.96 10*3/uL (0.90-5.00); Lymphocytes % (A) 29.2 %; MCH 29.7 pg (27.0-32.0); MCHC 33.2 g/dL (32.0-37.0); MCV 89.4 fL (80.0-97.0); Monocytes # (A) 0.67 10*3/uL (0.20-1.00); Neutrophils # (A) 3.94 10*3/uL (1.80-7.70); Neutrophils % (A) 58.8 %; Platelet Count 239 10*3/uL (140-440); RBC 4.72 10*6/uL (4.10-5.20); RDW 13.1 % (11.5-14.5); WBC 6.71 10*3/uL (4.50-10.00)
[2024-10-26 09:09] LABS: INR 0.9 (<1.2); Partial Thromboplastin Time 27.1 sec (22.0-30.0); Prothrombin Time 10.6 sec (10.0-12.5)
[2024-10-26 09:11] LABS: ALT 19 U/L (4-34); AST 27 U/L (14-36); African American GFR (CKD) >90 (>60 ml/min/1.73 sqM); Alkaline Phosphatase 80 U/L (38-126); Anion Gap 6 mmol/L; Blood Urea Nitrogen 14 mg/dL (7-17); Calcium 10.4 mg/dL (8.4-10.2); Carbon Dioxide 27 mmol/L (22-30); Chloride 103 mmol/L (98-107); Glucose 168 mg/dL (74-99); Non-African American GFR(CKD) >90 (>60 ml/min/1.73 sqM); Potassium 4.7 mmol/L (3.5-5.1); Sodium 136 mmol/L (137-145); Total Bilirubin 1.7 mg/dL (0.2-1.3); Total Protein 6.8 g/dL (6.3-8.2)
[2024-10-26 09:19] LABS: NT-Pro-B-Type Natriuretic Pept 234 pg/mL
[2024-10-26] MEDS ORDERED: NITROGLYCERIN SL TABS 0.4 MG TAB SUBLINGUAL PRN (09:28)
--- NOTE | 2024-10-26 11:22 | CA ---
Transthoracic Echo Report Name: Vita Romero Age: 74 Gender: F : 1950 Exam Date: 10/26/2024 10:26 Exam Location: [facility] Ht (in): 62 Wt (lb): 150 Ordering Physician: Brady Turner Attending/Referring Phys: [id number], Johnny Surgical Dressing Maker Kathleen Fields RDCS Procedure CPT: Indications: Chest Pain Cardiac Hx: Technical Quality: Fair Contrast 1: Total Dose (mL): Contrast 2: Total Dose (mL): MEASUREMENTS (Male / Female) Normal Values 2D ECHO LV Diastolic Diameter PLAX 4.3 cm 4.2 - 5.9 / 3.9 - 5.3 cm LV Systolic Diameter PLAX 3.0 cm IVS Diastolic Thickness 0.9 cm 0.6 - 1.0 / 0.6 - 0.9 cm LVPW Diastolic Thickness 1.1 cm 0.6 - 1.0 / 0.6 - 0.9 cm LV Relative Wall Thickness 0.5 RV Internal Dim ED PLAX 3.3 cm LA Systolic Diameter LX 3.4 cm 3.0 - 4.0 / 2.7 - 3.8 cm LV Diastolic Volume MOD 4C 72.5 cm??? LV Systolic Volume MOD 4C 37.2 cm??? LV Ejection Fraction MOD 4C 48.7 % LV Cardiac Index MOD 4C 1578.3 cm???/min???m??? LV Diastolic Length 4C 8.3 cm LV Systolic Length 4C 6.1 cm LV Diastolic Volume MOD 2C 86.8 cm??? LV Systolic Volume MOD 2C 36.2 cm??? LV Ejection Fraction MOD 2C 58.3 % LV Cardiac Index MOD 2C 2261.8 cm???/min???m??? LV Diastolic Length 2C 8.0 cm LV Systolic Length 2C 5.9 cm LA Volume 55.3 cm??? 18 - 58 / 22 - 52 cm??? LA Volume Index 31.7 cm???/m??? 16 - 28 cm???/m??? M-MODE Aortic Root Diameter MM 3.0 cm AV Cusp Separation MM 2.0 cm DOPPLER AV Peak Velocity 139.8 cm/s AV Peak Gradient 7.8 mmHg AI Peak Velocity 262.4 cm/s AI Peak Gradient 27.5 mmHg AI Pressure Half Time 1041.7 ms MV Area PHT 4.9 cm??? Mitral E Point Velocity 114.0 cm/s Mitral A Point Velocity 110.6 cm/s Mitral E to A Ratio 1.0 MV Deceleration Time 154.7 ms TR Peak Velocity 237.1 cm/s TR Peak Gradient 22.5 mmHg Right Ventricular Systolic Press 27.5 mmHg FINDINGS Left Ventricle Left ventricular ejection fraction is estimated at 55-60 %. Left ventricular cavity size normal. Mildly increased posterior wall thickness. Normal left ventricular wall motion. Right Ventricle Normal right ventricular size and function. . Right ventricular systolic pressure within normal limits. Right Atrium Normal right atrial size. No right atrial thrombus or mass seen. Left Atrium Mildly increased left atrial volume. No spontaneous echo contrast seen in the left atrium. Mitral Valve Mitral valve thickened. Mitral annular calcification. No mitral stenosis, regurgitation or prolapse. Aortic Valve Trileaflet aortic valve. Aortic valve sclerosis. Mild aortic regurgitation. Tricuspid Valve Structurally normal tricuspid valve. No tricuspid stenosis or prolapse. Mild tricuspid regurgitation. Pulmonic Valve Pulmonic valve not well visualized. No pulmonic regurgitation. Pericardium No pericardial effusion. Aorta Normal size aortic root and proximal ascending aorta. CONCLUSIONS LVEF 55% Mild concentric LVH No obvious regional wall motion abnormality Mild aortic regurgitation Mild tricuspid regurgitation No significant chamber size abnormality Previewed by: Dr Elijah Hastings (Electronically Signed) Final Date: 26 October 2024 11:21
--- NOTE | 2024-10-26 11:46 | P.CRDCN ---
History of Present Illness Consult date: 10/26/24 Consult reason: chest pain History of present illness: This is a 74-year-old female patient of Dr. Jones with past medical history of coronary artery disease with previous stenting, hypertension, dyslipidemia, diabetes mellitus type 2, TIA, obesity. We have been asked to evaluate the patient for chest pain. Patient states that she developed a sharp brief episode of chest pain and then her whole body felt like nerves and she developed a cold sweat. Symptoms are gone at this time. She is ambulating in the hallway without chest pain. Patient states that she has lost 130 pounds with the use of Mounjaro, diet and exercise. Blood pressure 135/66, heart rate 65, pulse ox 98% on room air. Patient has been resumed on her home cardiac medications. Discussed option for stress test and patient states that she has had a chemical stress test in the past but since she is lost weight she feels that she is capable of doing walking treadmill stress test. -EKG: Sinus rhythm with no acute ST-T wave changes. -Chest x-ray: No acute process. -Laboratory studies: CBC unremarkable. INR and D-dimer normal. Sodium 136, creatinine 0.55. Blood sugar 168. Magnesium 2.0. Troponin negative x 2. proBNP 234. -Home cardiac medications: Aspirin 81 mg twice daily, atorvastatin 80 mg at bedtime, benazepril 20 mg at bedtime, Zetia 10 mg daily, Imdur 30 mg twice daily, metoprolol succinate 50 mg daily, patient also on Mounjaro. -Echocardiogram performed 10/26/2024: EF 55%, mild concentric LVH. Mild aortic regurgitation, mild tricuspid regurgitation. - Cardiac catheterization performed 04/01/2022 revealed LVEDP 15 mmHg, patent left circumflex stent, LAD with mild nonobstructive disease. -PCI of the left circumflex was performed 10/2008 -Echocardiogram performed 04/02/2022 revealed EF 60 to 65%, RVSP 27 mmHg. -Devices: Veduca loop recorder placed 05/23/2021 for monitoring after prior TIA -Lexiscan stress test performed 11/01/2020 negative Lexiscan stress test. Normal perfusion study. Normal gated images with ejection fraction 55%. Review Of Systems: At the time of my exam: CONSTITUTIONAL: Denies fever or chills. HEENT: Denies blurred vision, vision changes, or eye pain. Denies hemoptysis CARDIOVASCULAR: Denies chest pain. Denies orthopnea. Denies PND. Denies palpitations RESPIRATORY: Denies shortness of breath. GASTROINTESTINAL: Denies abdominal pain. Denies nausea or vomiting. HEMATOLOGIC: Denies bleeding disorders. GENITOURINARY: Denies any blood in urine. SKIN: Denies puritis. Denies rash. Physical examination: Gen: This is 74-year-old female in no acute distress. VS: reviewed HEENT: Head is atraumatic, normocephalic. Pupils equal, round. Sclerae is anicteric. NECK: Supple. No JVD. LUNGS: Clear to auscultation. No wheezes or rhonchi. No intercostal retractions. HEART: Regular rate and rhythm. No murmur. ABDOMEN: Soft No tenderness. EXTREMITIES: No pedal edema. No calf tenderness. NEUROLOGICAL: Patient is awake, alert and oriented x3. Assessment: Atypical chest pain, acute coronary syndrome ruled out History of coronary artery disease with previous stenting in 2008 Hypertension Dyslipidemia Diabetes mellitus type 2 History of TIA Obesity with weight loss using Mounjaro, exercise and diet Plan: Resume patient's home cardiac medications Obtain TSH, A1c, lipid panel Schedule patient for stress echocardiogram today If stress test is unremarkable, patient is cleared for discharge and may follow- up in the office with Dr. Jones in 1 to 2 weeks. Thank you kindly for this consultation. Nurse practitioner note has been reviewed, I agree with documented findings and plan of care. Patient was seen and examined. Past Medical History Past Medical History: Coronary Artery Disease (CAD), Cancer, CVA/TIA, Diabetes Mellitus, GERD/Reflux, Hypertension, Osteoarthritis (OA) Additional Past Medical History / Comment(s): SKIN CANCER , KIDNEY STONES, urinary leakage History of Any Multi-Drug Resistant Organisms: None Reported Past Surgical History: Adenoidectomy, Section, Cholecystectomy, Heart Catheterization, Heart Catheterization With Stent, Joint Replacement, Orthopedic Surgery, Tonsillectomy, Tubal Ligation Additional Past Surgical History / Comment(s): CATARACT BILATERAL EYE, TOTAL mallorie KNEE replacement, BILATERAL CARPAL TUNNEL RELEASE,C- SECTION X3, 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 stress test in 10/29 Past Anesthesia/Blood Transfusion Reactions: Motion Sickness Date of Last Stent Placement:: 10/2008 Type of Cardiac Device: Loop Device Placement Date:: loop monitor placed May Past Psychological History: No Psychological Hx Reported Smoking Status: Never smoker Past Alcohol Use History: None Reported Past Drug Use History: None Reported - Past Family History Son(s) Family Medical History: Deep Vein Thrombosis (DVT) Mother Additional Family Medical History / Comment(s): Alzheimer Disease Father Additional Family Medical History / Comment(s): Passed at age 48 due to unknown medical complications. Brother(s) Family Medical History: Cancer Additional Family Medical History / Comment(s): Pancreatic cancer, at age 62. Medications and Allergies Home Medications Medication Instructions Recorded Confirmed Type Atorvastatin [Lipitor] 80 mg PO HS 07/21/14 10/26/24 History Metoprolol Succinate [Toprol XL] 50 mg PO DAILY 09/27/15 10/26/24 History Ezetimibe [Zetia] 10 mg PO DAILY 30 Days #30 tab 04/19/21 10/26/24 Rx Benazepril HCl 20 mg PO HS 05/23/21 10/26/24 History Pantoprazole [Protonix] 40 mg PO AC-BRKFST 09/04/21 10/26/24 History Aspirin 81 mg PO BID 04/01/22 10/26/24 History Cyanocobalamin [Vitamin B-12] 500 mcg PO BID 04/01/22 10/26/24 History Cholecalciferol [Vitamin D3 (25 50 mcg PO BID 10/26/24 10/26/24 History Mcg = 1000 Iu)] Isosorbide Mononitrate ER [Imdur] 30 mg PO BID 10/26/24 10/26/24 History Pioglitazone [Actos] 30 mg PO DAILY 10/26/24 10/26/24 History Tirzepatide [Mounjaro] 10 mg SQ PATEL 10/26/24 10/26/24 History metFORMIN HCL ER [Glucophage XR] 1,000 mg PO DAILY 10/26/24 10/26/24 History metFORMIN HCL ER [Glucophage XR] 500 mg PO HS 10/26/24 10/26/24 History Allergies Allergy/AdvReac Type Severity Reaction Status Date / Time No Known Allergies Allergy Verified 10/26/24 09:35 Physical Exam Vitals: Vital Signs Temp Pulse Pulse Resp BP Pulse Ox 10/26/24 10:28 65 16 135/66 98 10/26/24 10:00 68 20 130/68 98 10/26/24 09:00 75 20 133/66 98 10/26/24 08:13 85 10/26/24 08:01 75 20 150/86 98 10/26/24 07:40 97.5 F L 82 18 169/71 99 Intake and Output 10/25/24 10/26/24 10/26/24 22:59 06:59 14:59 Other: Weight 68.039 kg Results 10/26/24 07:49 10/26/24 07:49 Cardiac Enzymes 10/26/24 10/26/24 10/26/24 Range/Units 07:49 07:49 10:48 AST 27 (14-36) U/L Troponin I <0.012 <0.012 (0.000-0.034) ng/mL Coagulation 10/26/24 Range/Units 07:49 PT 10.6 (10.0-12.5) sec APTT 27.1 (22.0-30.0) sec CBC 10/26/24 Range/Units 07:49 WBC 6.71 (4.50-10.00) 10*3/uL RBC 4.72 (4.10-5.20) 10*6/uL Hgb 14.0 (12.0-15.0) g/dL Hct 42.2 (37.2-46.3) % Plt Count 239 (140-440) 10*3/uL Comprehensive Metabolic Panel 10/26/24 Range/Units 07:49 Sodium 136 L (137-145) mmol/L Potassium 4.7 (3.5-5.1) mmol/L Chloride 103 (98-107) mmol/L Carbon Dioxide 27 (22-30) mmol/L BUN 14 (7-17) mg/dL Creatinine 0.55 (0.52-1.04) mg/dL Glucose 168 H (74-99) mg/dL Calcium 10.4 H (8.4-10.2) mg/dL AST 27 (14-36) U/L ALT 19 (4-34) U/L Alkaline Phosphatase 80 (38-126) U/L Total Protein 6.8 (6.3-8.2) g/dL Albumin 4.0 (3.5-5.0) g/dL Current Medications Generic Name Dose Route Start Last Admin Trade Name Ranchoq PRN Reason Stop Dose Admin Aspirin 325 mg 10/27/24 09:00 Aspirin 325 Mg Tab PO DAILY [facility] Atorvastatin Calcium 80 mg 10/26/24 21:00 Atorvastatin 80 Mg Tab PO HS [facility] Cholecalciferol 50 mcg 10/26/24 21:00 Cholecalciferol 25 Mcg (1000 Iu) Tablet PO BID [facility] Cyanocobalamin 500 mcg 10/26/24 21:00 Cyanocobalamin 500 Mcg Tab PO BID [facility] Ezetimibe 10 mg 10/26/24 10:30 Ezetimibe 10 Mg Tab PO DAILY [facility] Enoxaparin Sodium 40 mg 10/26/24 10:30 Enoxaparin 40 Mg/0.4 Ml Syringe SQ DAILY [facility] Isosorbide Mononitrate 30 mg 10/26/24 10:30 Isosorbide Mononitrate Er 30 Mg Tab.Er.24h PO BID [facility] Lisinopril 20 mg 10/26/24 21:00 Lisinopril 20 Mg Tab PO HS [facility] Metformin HCl 500 mg 10/26/24 17:30 Metformin 500 Mg Tab PO W/SUPPER [facility] Metformin HCl 1,000 mg 10/26/24 10:30 Metformin 500 Mg Tab PO DAILY [facility] Metoprolol Succinate 50 mg 10/26/24 10:30 Metoprolol Succinate (Er) 50 Mg Tab.Er.24h PO DAILY [facility] Nitroglycerin 0.4 mg 10/26/24 09:28 Nitroglycerin Sl Tabs 0.4 Mg Tab SUBLINGUAL Q5M PRN Chest Pain Tirzepatide [ 1 each 10/30/24 09:00 Mounjaro] 10 Mg/0.5 SQ Ml Pen.Injctr PATEL [facility] Pantoprazole Sodium 40 mg 10/26/24 10:30 Pantoprazole 40 Mg Tablet PO AC-BRKFST [facility] Pioglitazone HCl 30 mg 10/26/24 10:30 Pioglitazone 30 Mg Tab PO DAILY [facility] Intake and Output 10/25/24 10/26/24 10/26/24 22:59 06:59 14:59 Other: Weight 68.039 kg Patient Weight 10/27/24 06:59 Weight 68.039 kg 10/26/24 07:49 10/26/24 07:49
[2024-10-26] MEDS: PANTOPRAZOLE 40 MG TABLET PO SCH (13:32)
[2024-10-26] MEDS: EZETIMIBE 10 MG TAB PO SCH (13:32)
[2024-10-26] MEDS: PIOGLITAZONE 30 MG TAB PO SCH (13:32)
[2024-10-26] MEDS: ISOSORBIDE MONONITRATE ER 30 MG TAB.ER.24H PO SCH (13:32)
[2024-10-26] MEDS: metFORMIN 500 MG TAB PO SCH ×2 (13:32→18:36)
[2024-10-26] MEDS: ENOXAPARIN 40 MG/0.4 ML SYRINGE SQ SCH (13:33)
[2024-10-26] MEDS: METOPROLOL SUCCINATE (ER) 50 MG TAB.ER.24H PO SCH (13:33)
[2024-10-26 17:31] LABS: Chol/HDL Ratio 2.16 Ratio; LDL Cholesterol,Calculated 46.6 mg/dL (0.0-131.0); VLDL Calculation 14.68 mg/dL (5.00-40.00)
--- NOTE | 2024-10-26 18:26 | P.HPIM ---
History of Present Illness H&P Date: 10/26/24 Chief Complaint: Chest pain This is a very pleasant 74-year-old patient of Dr. Hernandez. Chronic stable medical conditions include coronary artery disease with stent in 2008, diabetes, GERD, hypertension, osteoarthritis, urinary incontinence. Patient follows with her lens silverer Dr. Yuriy Jones. Patient has been taking Mounjaro for close to year. Has lost 100 pounds. Patient this morning developed shopped left-sided chest pain. May have lasted about 10 minutes. But also broke out into a cold sweat. Started feeling out of sorts with discomfort with the arms. Decided to come in. Pain did not radiate. No dizziness no lightheadedness. Review of systems: GEN.: None EYES: None HEENT: None NECK: None RESPIRATORY: None CARDIOVASCULAR: As above GASTROINTESTINAL: None GENITOURINARY: Incontinence MUSCULOSKELETAL: Joint pains LYMPHATICS: None HEMATOLOGICAL: None PSYCHIATRY: None NEUROLOGICAL: None Social history: Does not smoke or drink alcohol. Lives with the Physical examination: VITAL SIGNS: 97.5, 75, 20, 150 x 86, 98% room air GENERAL: BMI 27.4, sitting up in the chair awake comfortable EYES: Pupils equal. Conjunctiva normal. HEENT: External appearance of nose and ears normal, oral cavity grossly normal. NECK: JVD not raised; masses not palpable. HEART: First and second heart sounds are normal; no edema. LUNGS: Respiratory rate normal; clear to auscultation. ABDOMEN: Soft, nontender, liver spleen not palpable, no masses palpable. PSYCH: Alert and oriented x3; mood and affect normal. Musculoskeletal: OA NEUROLOGICAL: Cranial nerves grossly intact; no facial asymmetry, power and sensation grossly intact. LYMPHATICS: No lymph nodes palpable in the axilla and neck INVESTIGATIONS, reviewed in the clinical context: October 26, 2024: White count 6.7 hemoglobin 14 platelets 239 sodium 136 potassium 4.7 creatinine 0.55 HbA1c 7 Troponin I less than 0.012 x 3 proBNP 234 LDL 46.6 e EKG tracing personally reviewed by me-normal sinus rhythm. Some ST depressions in inferolateral leads Chest x-ray film personally reviewed by me-some hyperinflation Assessment and plan: -Possible unstable angina in a patient with known coronary artery disease Aspirin. Toprol-XL. Cardiology consulted. Stress test. -Coronary artery disease with a stent, in [address] Yuriy Jones/lens silverer Aspirin. Lipitor. Toprol-XL -Diabetes mellitus type 2, oral hypoglycemic Mounjaro. Metformin. Actos. -GERD Protonix -Essential hypertension Toprol-XL benazepril -Primary osteoarthritis Tylenol as needed -Urinary stress incontinence -Patient has lost over 100 pounds. Used to be morbidly obese. Has been on Mounjaro. - Full code Past Medical History Past Medical History: Coronary Artery Disease (CAD), Cancer, CVA/TIA, Diabetes Mellitus, GERD/Reflux, Hypertension, Osteoarthritis (OA) Additional Past Medical History / Comment(s): SKIN CANCER , KIDNEY STONES, urinary leakage History of Any Multi-Drug Resistant Organisms: None Reported Past Surgical History: Adenoidectomy, Section, Cholecystectomy, Heart Catheterization, Heart Catheterization With Stent, Joint Replacement, Orthopedic Surgery, Tonsillectomy, Tubal Ligation Additional Past Surgical History / Comment(s): CATARACT BILATERAL EYE, TOTAL mallorie KNEE replacement, BILATERAL CARPAL TUNNEL RELEASE,C- SECTION X3, 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 stress test in 10/29 Past Anesthesia/Blood Transfusion Reactions: Motion Sickness Date of Last Stent Placement:: 10/2008 Type of Cardiac Device: Loop Device Placement Date:: loop monitor placed May Past Psychological History: No Psychological Hx Reported Smoking Status: Never smoker Past Alcohol Use History: None Reported Past Drug Use History: None Reported - Past Family History Son(s) Family Medical History: Deep Vein Thrombosis (DVT) Mother Additional Family Medical History / Comment(s): Alzheimer Disease Father Additional Family Medical History / Comment(s): Passed at age 48 due to unknown medical complications. Brother(s) Family Medical History: Cancer Additional Family Medical History / Comment(s): Pancreatic cancer, at age 62. Medications and Allergies Home Medications Medication Instructions Recorded Confirmed Type Atorvastatin [Lipitor] 80 mg PO HS 07/21/14 10/26/24 History Metoprolol Succinate [Toprol XL] 50 mg PO DAILY 09/27/15 10/26/24 History Ezetimibe [Zetia] 10 mg PO DAILY 30 Days #30 tab 04/19/21 10/26/24 Rx Benazepril HCl 20 mg PO HS 05/23/21 10/26/24 History Pantoprazole [Protonix] 40 mg PO AC-BRKFST 09/04/21 10/26/24 History Aspirin 81 mg PO BID 04/01/22 10/26/24 History Cyanocobalamin [Vitamin B-12] 500 mcg PO BID 04/01/22 10/26/24 History Cholecalciferol [Vitamin D3 (25 50 mcg PO BID 10/26/24 10/26/24 History Mcg = 1000 Iu)] Isosorbide Mononitrate ER [Imdur] 30 mg PO BID 10/26/24 10/26/24 History Pioglitazone [Actos] 30 mg PO DAILY 10/26/24 10/26/24 History Tirzepatide [Mounjaro] 10 mg SQ PATEL 10/26/24 10/26/24 History metFORMIN HCL ER [Glucophage XR] 1,000 mg PO DAILY 10/26/24 10/26/24 History metFORMIN HCL ER [Glucophage XR] 500 mg PO HS 10/26/24 10/26/24 History Allergies Allergy/AdvReac Type Severity Reaction Status Date / Time No Known Allergies Allergy Verified 10/26/24 09:35 Physical Exam Vitals: Vital Signs Temp Pulse Pulse Resp BP Pulse Ox 10/26/24 10:00 68 20 130/68 98 10/26/24 09:00 75 20 133/66 98 10/26/24 08:13 85 10/26/24 08:01 75 20 150/86 98 10/26/24 07:40 97.5 F L 82 18 169/71 99 Intake and Output 10/25/24 10/26/24 10/26/24 22:59 06:59 14:59 Other: Weight 68.039 kg Results CBC & Chem 7: 10/26/24 07:49 10/26/24 07:49 Labs: Abnormal Lab Results - Last 24 Hours (Table) 10/26/24 10/26/24 Range/Units 07:49 07:49 MPV 9.0 L (9.5-12.2) fL Sodium 136 L (137-145) mmol/L Glucose 168 H (74-99) mg/dL Calcium 10.4 H (8.4-10.2) mg/dL Total Bilirubin 1.7 H (0.2-1.3) mg/dL
[2024-10-26] MEDS: ATORVASTATIN 80 MG TAB PO SCH (21:43)
[2024-10-26] MEDS: CHOLECALCIFEROL 25 MCG (1000 IU) TABLET PO SCH (21:43)
[2024-10-26] MEDS: CYANOCOBALAMIN 500 MCG TAB PO SCH (21:43)
[2024-10-26] MEDS: lisinopriL 20 MG TAB PO SCH (21:43)
[2024-10-27 08:33] VITALS: TEMP 97.8
[2024-10-27] MEDS ORDERED: NITROGLYCERIN SL TABS 0.4 MG TAB SUBLINGUAL PRN (09:33)
[2024-10-27] MEDS ORDERED: ALPRAZolam 0.5 MG TAB PO PRN (09:33)
[2024-10-27] MEDS ORDERED: ALPRAZolam 0.25 MG TAB PO PRN (09:33)
--- NOTE | 2024-10-27 10:18 | CA ---
Stress Echo Report Vita Romero Age: 74 Gender: F : 1950 Exam Date: 10/26/2024 12:12 Exam Location: [facility] Ht (in): 62 Wt (lb): 150 Ordering Physician: Elijah Hastings MD ([id number]) Referring Physician: ROSARIO,, Slip Box Changer: DARRIAN Technologist Procedure CPT: Indication: cardiomyopathy, Angina pectoris, unspecified ICD-9 Codes: I209 Rhythm: Patient History: CHEST PAIN, DIFFICULTY IN BREATHING, PALPITATIONS, HTN, DIABETIC, HYPERCHOLESTEROLEMIA, PRIOR HEART CATH WITH STENT Cardiac Medications: Medications in past 24 hours: Contrast: Definity Stress Results Protocol: Madhu Total dose(mL): 2 Exercise Duration (min:sec): 2:[address] Depression (mm): Angina Score: Sandy Score: METS: 4.2 Resting HR: 98 Resting BP: 142 / 58 Peak HR: 140 Peak BP: 163 / 70 Max Predicted HR: 145 97 % Max Predicted HR Target HR: 123 Double Product: [id number] Stress Summary: BP Response: Reason for Termination: MAX EXERTION/TARGET HR Cardiac Symptoms: NO SYMPTOMS ECG Analysis Resting ECG: Normal sinus rhythm Stress ECG: No significant ST-T wave changes diagnostic for ischemia Arrhythmia: Occasional PVCs noticed during the stress test. No sustained arrhythmias Echo Analysis Resting Echo: Normal global and segmental systolic function with no resting regional wall motion abnormality Peak Echo Analysis: Mid to distal anteroseptal and apical wall hypokinesia noticed with stress. MEASUREMENTS (Male/Female) Normal Values CONCLUSIONS Poor exercise capacity only achieving 4.2 METS Normal hemodynamic and clinical response to treadmill exercise Abnormal echocardiographic response to treadmill exercise, concerning for stress-induced ischemia in LAD territory Nonischemic ECG response to treadmill exercise Dr Elijah Hastings (Electronically Signed) Final Date: 27 October 2024 10:17
[2024-10-27] MEDS: SODIUM CHLORIDE 0.9% 1,000 ML IV ONE (10:30)
[2024-10-27] MEDS: MIDAZOLAM 2 MG/2 ML VIAL IVP ONE ×3 (10:34→14:24)
[2024-10-27] MEDS: fentaNYL (PF) 50 MCG/ML 2 ML AMP IVP ONE (10:34)
[2024-10-27] MEDS: LIDOCAINE 1% INJ 10MG/ML (20 ML MDV) SQ ONE ×2 (10:34→14:13)
[2024-10-27] MEDS: VERAPAMIL SYRINGE (5 MG/10 ML) INTRAARTER ONE ×2 (10:36→13:29)
[2024-10-27] MEDS: HEPARIN SODIUM,PORCINE (1 ML) 2,500 UNIT in SODIUM CHLORIDE 0.9% 250 ML IRRIGATION PRN (10:38)
[2024-10-27] MEDS: HEPARIN SODIUM,PORCINE 10,000 UNIT in SODIUM CHLORIDE 0.9% 1,000 ML IRRIGATION PRN (10:38)
[2024-10-27] MEDS: HEPARIN SODIUM 1,000 UN/ML (10ML VL) IV ONE (10:38)
[2024-10-27] MEDS: NITROGLYCERIN 1000MCG/10ML SYRINGE INTRACORON ONE (10:48)
--- NOTE | 2024-10-27 11:06 | P.CARDCATH ---
Date of Procedure: 10/27/24 Description of Procedure: DIAGNOSTIC CORONARY ANGIOGRAPHY and LEFT HEART CATH REPORT PROCEDURES PERFORMED: Left heart catheterization Selective coronary angiography Moderate conscious sedation 21 mins Right radial access INDICATION: Abnormal stress test BRIEF HPI: 74-year-old female with past medical history of PCI to RCA, also history of moderate nonobstructive disease in the RCA from heart cath in 2019 presented the hospital because of substernal chest pressure. She had a treadmill echo stress test which showed poor exercise capacity nonischemic ECG however stress echo did show stress-induced hypokinesia in mid to distal anteroseptal wall suggestive of stress-induced ischemia in the LAD territory. For this she was scheduled for a heart catheterization procedure CONSENT: I have explained the procedural steps of above-mentioned procedures in layman's terms to the patient. I discussed the risks (including but not limited to stroke, emergent vascular or cardiac surgery or ), benefits and alternative therapies for the above-mentioned procedure. I discussed the risks of sedation/analgesia and blood product administration (if indicated). The patient has indicated understanding and acceptance of these risks. Conscious Sedation: Patient's ECG, heart rate, blood pressure, pulse oximetry were monitored throughout the duration of procedure under my direct supervision. 1 mg Versed and 50 mcg Fentanyl were used for induction of moderate conscious sedation. Total duration of moderate concious sedation 21 minutes. PROCEDURAL DETAILS: Patient was prepped and draped in sterile fashion. 1% lidocaine was infiltrated over the right radial artery. Right radial access was obtained via modified seldinger technique. Medications: 5mg of verapamil was administed in the radial sheet. 5000 Units of Heparin was administed once the catheter reached the aortic root Wires and Catheter used: J wire was advanced under fluroscopy to get to aortic root. 5 salvadorean JR 4 diagnostic catheter was utilized obtain left ventricular pressure and pressure gradint across aortic valve. 5 salvadorean JR 4 diagnostic catheter was used to selectively engage the right coronary ostium. 5 salvadorean JL 3.5 diagnostic catheter was utilized to selectively engage the left coronary ostium. 100 mcg of nitroglycerin was administered intracoronary, and repeat LAD images were obtained. Angiographic images were reviewed in detail. Catheter and wire were removed. Radial sheet was flushed. TECHNICAL DETAILS Total radiation: 57 mGy Total fluro time: 2 minutes Total contrast used: Isovue [60 ml] Complications: [none] Estimated Blood loss: less than 15 ml HEMODYNAMICS: Aortic Pressure: 110/60 mmHg. LV pressure: 110/1 mmHg. LVEDP 7 mmHg. There was no significant gradient across the aortic valve. SELECTIVE CORONARY ARTERIOGRAPHY: LEFT MAIN: The left main is short and large caliber vessel. It bifurcates into the LAD and circumflex. Left main appears angiographically normal. LEFT ANTERIOR DESCENDING CORONARY ARTERY: LAD is large caliber reaches up to the apex. Proximal LAD appears angiographically patent with mild calcific luminal irregularities. Mid LAD appears to have calcified tubular 50 to 60% disease. Distal LAD has mild luminal irregularities. LAD gives rise to small diagonal 1, diagonal 2 and diagonal 3 which appears angiographically patent. LEFT CIRCUMFLEX CORONARY ARTERY: It is nondominant vessel. LCx is medium caliber and appears angiographically patent. In proximal segment it gives rise to an OM1 which is small caliber vessel tortuous and appears patent. Ostium and proximal OM1 has 30-40% disease. Mid LCx gives rise to small OM 2 branch which appears patent. RIGHT CORONARY ARTERY: Dominant vessel. RCA is large caliber vessel. Proximal RCA has a prior stent which appears patent. Distal edge of the prior stent appears to have 40% disease which is mildly progressed when compared to heart cath from 2019. Distal RCA has mild luminal irregularities. Distally it bifurcates into PDA and PL branches which are medium caliber and appears angiographically patent. IMPRESSION: 50 to 60% mid LAD calcific disease 40% mid RCA calcific disease Patent prior stent in proximal RCA Normal LVEDP PLAN: Plan for IFR assessment of mid LAD lesion because of abnormal stress test findings in the corresponding myocardial territory Further recommendations to follow Performing Physician Elijah Hastings MD, FACC, RPVI Thank you for allowing [facility] to participate in this patient's care. Feel free to reach out in case of any followup questions.
[2024-10-27] MEDS: IOPAMIDOL-370 100ML BTL INJ ONE (11:08)
[2024-10-27 11:19] LABS: Glucose,Whole Blood 120 mg/dL (70-110)
--- NOTE | 2024-10-27 12:36 | P.PN ---
Subjective Progress Note Date: 10/27/24 Consult reason: chest pain History of present illness: This is a 74-year-old female patient of Dr. Jones with past medical history of coronary artery disease with previous stenting, hypertension, dyslipidemia, diabetes mellitus type 2, TIA, obesity. We have been asked to evaluate the patient for chest pain. Patient states that she developed a sharp brief episode of chest pain and then her whole body felt like nerves and she developed a cold sweat. Symptoms are gone at this time. She is ambulating in the hallway without chest pain. Patient states that she has lost 130 pounds with the use of Mounjaro, diet and exercise. Blood pressure 135/66, heart rate 65, pulse ox 98% on room air. Patient has been resumed on her home cardiac medications. Discussed option for stress test and patient states that she has had a chemical stress test in the past but since she is lost weight she feels that she is capable of doing walking treadmill stress test. -EKG: Sinus rhythm with no acute ST-T wave changes. -Chest x-ray: No acute process. -Laboratory studies: CBC unremarkable. INR and D-dimer normal. Sodium 136, creatinine 0.55. Blood sugar 168. Magnesium 2.0. Troponin negative x 2. proBNP 234. -Home cardiac medications: Aspirin 81 mg twice daily, atorvastatin 80 mg at bedtime, benazepril 20 mg at bedtime, Zetia 10 mg daily, Imdur 30 mg twice daily, metoprolol succinate 50 mg daily, patient also on Mounjaro. -Echocardiogram performed 10/26/2024: EF 55%, mild concentric LVH. Mild aortic regurgitation, mild tricuspid regurgitation. - Cardiac catheterization performed 04/01/2022 revealed LVEDP 15 mmHg, patent left circumflex stent, LAD with mild nonobstructive disease. -PCI of the left circumflex was performed 10/2008 -Echocardiogram performed 04/02/2022 revealed EF 60 to 65%, RVSP 27 mmHg. -Devices: PPI loop recorder placed 05/23/2021 for monitoring after prior TIA -Lexiscan stress test performed 11/01/2020 negative Lexiscan stress test. Normal perfusion study. Normal gated images with ejection fraction 55%. 10/27 Yesterday, patient underwent a stress echocardiogram which revealed poor exercise capacity only achieving 4.2 METS. Normal hemodynamic and clinical response to treadmill exercise. Abnormal echocardiogram response to treadmill exercise concerning for stress-induced ischemia in LAD territory. Nonischemic EKG response to treadmill exercise. Results reviewed with the patient with recommendations for cardiac catheterization which she is agreeable to move forward with this today. Blood pressure 122/60, heart rate 79, pulse ox 100% on room air. TSH 2.17. A1c 7.0, triglycerides 73, cholesterol 114, LDL 46. Physical examination: Gen: This is 74-year-old female in no acute distress. VS: reviewed HEENT: Head is atraumatic, normocephalic. Pupils equal, round. Sclerae is anicteric. NECK: Supple. No JVD. LUNGS: Clear to auscultation. No wheezes or rhonchi. No intercostal retractions. HEART: Regular rate and rhythm. No murmur. ABDOMEN: Soft No tenderness. EXTREMITIES: No pedal edema. No calf tenderness. NEUROLOGICAL: Patient is awake, alert and oriented x3. Assessment: Atypical chest pain, acute coronary syndrome ruled out History of coronary artery disease with previous stenting in 2008 Hypertension Dyslipidemia Diabetes mellitus type 2 History of TIA Obesity with weight loss using Mounjaro, exercise and diet Plan: Continue patient's home cardiac medications Schedule patient for cardiac catheterization today with Dr. Hastings At the time of discharge, patient will follow-up with Dr. Jones in 1 to 2 weeks. Nurse practitioner note has been reviewed, I agree with documented findings and plan of care. Patient was seen and examined. Objective - Vital Signs Vital signs: Vital Signs Temp 97.8 F 10/27/24 08:00 Pulse 53 L 10/27/24 08:00 Resp 16 10/27/24 08:00 BP 112/71 10/27/24 08:00 Pulse Ox 91 L 10/27/24 08:00 FiO2 Intake & Output 10/26/24 10/27/24 10/27/24 18:59 06:59 18:59 Intake Total 236 Balance 236 Weight 68.039 kg Intake: Oral 236 Other: Voiding Method Toilet # Voids 3 2 - Labs CBC & Chem 7: 10/26/24 07:49 10/26/24 07:49 Labs: Abnormal Lab Results - Last 24 Hours (Table) 10/26/24 Range/Units 07:49 Hemoglobin A1c 7.0 H (<=6.0) %
[2024-10-27] MEDS: SODIUM CHLORIDE 0.9% 1,000 ML IV SCH ×2 (13:08→20:09)
[2024-10-27] MEDS: LIDOCAINE 1% INJ 10MG/ML (30 ML VIAL-PF) SQ ONE (13:20)
[2024-10-27] MEDS: HEPARIN SODIUM 1,000 UN/ML (10ML VL) IVP ONE (13:29)
[2024-10-27] MEDS: TICAGRELOR 90 MG TAB PO ONE (13:30)
[2024-10-27] MEDS: IOPAMIDOL-300 100ML BTL INJ ONE (14:08)
[2024-10-27] MEDS: fentaNYL (PF) 50 MCG/1 ML VIAL IVP ONE (14:24)
[2024-10-27] MEDS: MORPHINE SULFATE 4 MG/ML SYRINGE IVP ONE (14:52)
[2024-10-27] MEDS ORDERED: ATROPINE SULFATE 0.1 MG/ML 10ML SYRINGE IV PRN (15:11)
[2024-10-27] MEDS ORDERED: RX INFO: IV CONTRAST WAS GIVEN 1 EACH MISC MISCELLANE PRN (15:11)
[2024-10-27] MEDS ORDERED: ZOLPIDEM 5 MG TAB PO PRN (15:11)
[2024-10-27] MEDS ORDERED: MAG HYDROX/AL HYDROX/SIMETH 30 ML CUP PO PRN (15:11)
[2024-10-27] MEDS: ASPIRIN 325 MG TAB PO STA (16:28)
[2024-10-27] MEDS: ATORVASTATIN 80 MG TAB PO STA (16:28)
[2024-10-27 16:30] LABS: Glucose,Whole Blood 95 mg/dL (70-110)
[2024-10-27] MEDS: ASPIRIN 325 MG TAB PO SCH (18:29)
[2024-10-27] MEDS: TICAGRELOR 90 MG TAB PO SCH (20:06)
[2024-10-27 20:20] LABS: Glucose,Whole Blood 116 mg/dL (70-110)
--- NOTE | 2024-10-27 21:15 | P.PCN ---
Date of Procedure: 10/27/24 Operative Findings: Percutaneous coronary intervention Performing physician Asif Fowler MD Procedure performed 1. Successful stenting of the LAD using 3.0 x 23 mm and 3.0 x 38 mm and 4.0 x 15 mm Xience KEELEY with an excellent angiographic results on reduction of stenosis from 80% to 0% 2. Adjunctive use of IFR and IVUS and lithotripsy balloon 3. Selective right common femoral artery angiogram and ultrasound-guided access of the right common femoral artery Indication Symptomatic 74-year-old female patient who was admitted to the hospital with a chest discomfort and underwent stress echocardiogram came in to be abnormal showing an anterior ischemia. Subsequently she underwent a heart catheterizati on by Dr. Hastings and that revealed intermediate to severe disease involving the LAD. In the light of that an IFR of the LAD was performed with possible PCI Approach Right radial artery and right common femoral artery Complications None Level of sedation Moderate with sedation length of 120 minutes Procedure description After obtaining informed consent the patient was brought to the cardiac Farm Machinery Engine Mechanic. Initially we decided to start with doing IFR of the LAD. After zeroing to the apical wire and equalized in between the palmar wire and guiding catheter which was JL 3.5 guiding catheter the left main was engaged and subsequently the LAD was wired with IFR came to be abnormal 0.70. At that point I decided to intervene on the LAD. I did leave the Doppler wire in place and subsequently I placed another wire in the LAD and that was the whisper wire.. After that I did balloon angioplasty of the LAD using a 3 mm noncompliant balloon which did not open fully. Before the balloon angioplasty was performed I attempting advancing IVUS of the LAD but IVUS went only to the proximal LAD and did not cross the actual lesion with proximal to mid LAD diameter came to be around 3 mm and proximally around 4 mm with heavily calcified vessel and arc of calcium exceeding 270 degree. At that point I decided to do a lithotripsy balloon. The lithotripsy balloon was not advanced over either wire in the left anterior descending artery because of lack of guide support. Attempting advancing the lithotripsy balloon using GuideLiner was also unsuccessful. I did attempt advancing 3 mm NC balloon but that was also unsuccessful and at that point I realized that I need to have a better guide support and better support overall and for that reason I aborted the right radial approach and I accessed the right common femoral artery using micropuncture technique under ultrasound guidance micropuncture wire passed easily and I placed a 7 Portuguese 23 cm sheath at the right common femoral artery and subsequently I was able to engage the LAD using an XB 357 Portuguese guiding catheter. I did wired the LAD again using a run- through wire and I advanced a guide liner. After that I was able to advance the lithotripsy balloon to the LAD. I did balloon angioplasty of the LAD and subsequently I did advance a 3.0 x 38 mm stent to the mid LAD where the stent was positioned under fluoroscopy guidance and deployed under fluoroscopy guidance. For the proximal LAD I was able to advance 4.0 x 15 mm stents. Both the stent were postdilated using 4 mm noncompliant balloon with an angiogram after that showed distal edge dissection of the stent in the mid LAD which I decided to cover using another 3.0 x 23 mm stents. The area of overlap between the 2 stents was dilated using stent balloon. Final angiogram showed good angiographic results and the procedure was completed with no complication. I did remove the guide and the wire and I did selective right common femoral artery angiogram before the procedure was completed Postprocedure management Dual antiplatelet therapy using aspirin and Brilinta for at least 6 months Aggressive cholesterol control Risk factors modification Follow-up with the patient
[2024-10-28 03:52] VITALS: RESP 18
[2024-10-28 05:58] LABS: Glucose,Whole Blood 129 mg/dL (70-110)
[2024-10-28 06:37] LABS: Basophils # (A) 0.02 10*3/uL (0.00-0.10); Basophils % (A) 0.3 %; Eosinophils # (A) 0.04 10*3/uL (0.04-0.35); Eosinophils % (A) 0.5 %; HCT 33.2 % (37.2-46.3); HGB 11.2 g/dL (12.0-15.0); Lymphocytes # (A) 1.46 10*3/uL (0.90-5.00); Lymphocytes % (A) 18.6 %; MCH 30.2 pg (27.0-32.0); MCHC 33.7 g/dL (32.0-37.0); MCV 89.5 fL (80.0-97.0); Mean Platelet Volume 9.2 fL (9.5-12.2); Monocytes # (A) 0.75 10*3/uL (0.20-1.00); Monocytes % (A) 9.6 %; Neutrophils # (A) 5.56 10*3/uL (1.80-7.70); Neutrophils % (A) 70.7 %; Platelet Count 229 10*3/uL (140-440); RBC 3.71 10*6/uL (4.10-5.20); RDW 13.1 % (11.5-14.5); WBC 7.85 10*3/uL (4.50-10.00)
[2024-10-28 07:00] LABS: African American GFR (CKD) >90 (>60 ml/min/1.73 sqM); Anion Gap 3 mmol/L; Blood Urea Nitrogen 15 mg/dL (7-17); Calcium 9.4 mg/dL (8.4-10.2); Carbon Dioxide 28 mmol/L (22-30); Chloride 104 mmol/L (98-107); Glucose 120 mg/dL (74-99); Non-African American GFR(CKD) 88 (>60 ml/min/1.73 sqM); Potassium 4.1 mmol/L (3.5-5.1); Sodium 135 mmol/L (137-145)
[2024-10-28] MEDS: ASPIRIN 81 MG PO SCH (08:43)
--- NOTE | 2024-10-28 09:48 | P.PN ---
Progress Note - Text Progress Note Date: 10/27/24 Chief Complaint: Chest pain This is a very pleasant 74-year-old patient of Dr. Hernandez. Chronic stable medical conditions include coronary artery disease with stent in 2008, diabetes, GERD, hypertension, osteoarthritis, urinary incontinence. Patient follows with her stock clipper Dr. Yuriy oJnes. Patient has been taking Mounjaro for close to year. Has lost 100 pounds. Patient this morning developed shopped left-sided chest pain. May have lasted about 10 minutes. But also broke out into a cold sweat. Started feeling out of sorts with discomfort with the arms. Decided to come in. Pain did not radiate. No dizziness no lightheadedness. Chief Complaint: Chest pain This is a very pleasant 74-year-old patient of Dr. Hernandez. Chronic stable medical conditions include coronary artery disease with stent in 2008, diabetes, GERD, hypertension, osteoarthritis, urinary incontinence. Patient follows with her stock clipper Dr. Yuriy Jones. Patient has been taking Mounjaro for close to year. Has lost 100 pounds. Patient this morning developed shopped left-sided chest pain. May have lasted about 10 minutes. But also broke out into a cold sweat. Started feeling out of sorts with discomfort with the arms. Decided to come in. Pain did not radiate. No dizziness no lightheadedness. October 27: Patient underwent cardiac catheterization with a stent to the LAD/KEELEY. IFR and IVUS and lithotripsy balloon was used. Postprocedure laying in bed. Comfortable. No chest pain. Earlier stress echocardiogram was negative Social history: Does not smoke or drink alcohol. Lives with the Physical examination: VITAL SIGNS: 97.8, 80, 17, 125 x 62, 99% room GENERAL: Laying in bed, comfortable EYES: Pupils equal. Conjunctiva normal. HEENT: External appearance of nose and ears normal, oral cavity grossly normal. NECK: JVD not raised; masses not palpable. HEART: First and second heart sounds are normal; no edema. LUNGS: Respiratory rate normal; clear to auscultation. ABDOMEN: Soft, nontender, liver spleen not palpable, no masses palpable. PSYCH: Alert and oriented x3; mood and affect normal. Musculoskeletal: OA INVESTIGATIONS, reviewed in the clinical context: Stress echocardiogram: Poor exercise capacity. Normal hemodynamic and clinical response to treadmill exercise. Abnormal echocardiographic response to treadmill exercise. October 26, 2024: White count 6.7 hemoglobin 14 platelets 239 sodium 136 potassium 4.7 creatinine 0.55 HbA1c 7 Troponin I less than 0.012 x 3 proBNP 234 LDL 46.6 e EKG tracing personally reviewed by me-normal sinus rhythm. Some ST depressions in inferolateral leads Chest x-ray film personally reviewed by me-some hyperinflation Assessment and plan: -Possible unstable angina in a patient with known coronary artery disease Aspirin. Toprol-XL. Cardiology consulted. Stress test. -Cardiac catheterization with the 50-60% mid LAD calcific disease. 40% mid RCA calcific disease. iFR done. Stent done to LAD/KEELEY Coronary artery disease with a stent, in [address] Yuriy Jones/stock clipper Aspirin. Lipitor. Toprol-XL Brilinta added -Diabetes mellitus type 2, oral hypoglycemic Mounjaro. Metformin. Actos. -GERD Protonix -Essential hypertension Toprol-XL benazepril -Primary osteoarthritis Tylenol as needed -Urinary stress incontinence -Patient has lost over 100 pounds. Used to be morbidly obese. Has been on Mounjaro. - Full code Discussed with patient Past Medical History Past Medical History: Coronary Artery Disease (CAD), Cancer, CVA/TIA, Diabetes Mellitus, GERD/Reflux, Hypertension, Osteoarthritis (OA) Additional Past Medical History / Comment(s): SKIN CANCER , KIDNEY STONES, urinary leakage History of Any Multi-Drug Resistant Organisms: None Reported Past Surgical History: Adenoidectomy, Section, Cholecystectomy, Heart Catheterization, Heart Catheterization With Stent, Joint Replacement, Orthopedic Surgery, Tonsillectomy, Tubal Ligation Additional Past Surgical History / Comment(s): CATARACT BILATERAL EYE, TOTAL mallorie KNEE replacement, BILATERAL CARPAL TUNNEL RELEASE,C- SECTION X3, 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 stress test in 10/29 Past Anesthesia/Blood Transfusion Reactions: Motion Sickness Date of Last Stent Placement:: 10/2008 Type of Cardiac Device: Loop Device Placement Date:: loop monitor placed May Past Psychological History: No Psychological Hx Reported Smoking Status: Never smoker Past Alcohol Use History: None Reported Past Drug Use History: None Reported Social history: Does not smoke or drink alcohol. Lives with the Physical examination: VITAL SIGNS: 97.5, 75, 20, 150 x 86, 98% room air GENERAL: BMI 27.4, sitting up in the chair awake comfortable EYES: Pupils equal. Conjunctiva normal. HEENT: External appearance of nose and ears normal, oral cavity grossly normal. NECK: JVD not raised; masses not palpable. HEART: First and second heart sounds are normal; no edema. LUNGS: Respiratory rate normal; clear to auscultation. ABDOMEN: Soft, nontender, liver spleen not palpable, no masses palpable. PSYCH: Alert and oriented x3; mood and affect normal. Musculoskeletal: OA NEUROLOGICAL: Cranial nerves grossly intact; no facial asymmetry, power and sensation grossly intact. LYMPHATICS: No lymph nodes palpable in the axilla and neck INVESTIGATIONS, reviewed in the clinical context: October 26, 2024: White count 6.7 hemoglobin 14 platelets 239 sodium 136 potassium 4.7 creatinine 0.55 HbA1c 7 Troponin I less than 0.012 x 3 proBNP 234 LDL 46.6 e EKG tracing personally reviewed by me-normal sinus rhythm. Some ST depressions in inferolateral leads Chest x-ray film personally reviewed by me-some hyperinflation Assessment and plan: -Possible unstable angina in a patient with known coronary artery disease Aspirin. Toprol-XL. Cardiology consulted. Stress test. -Coronary artery disease with a stent, in [address] Yuriy Jones/stock clipper Aspirin. Lipitor. Toprol-XL -Diabetes mellitus type 2, oral hypoglycemic Mounjaro. Metformin. Actos. -GERD Protonix -Essential hypertension Toprol-XL benazepril -Primary osteoarthritis Tylenol as needed -Urinary stress incontinence -Patient has lost over 100 pounds. Used to be morbidly obese. Has been on Mounjaro. - Full code Past Medical History Past Medical History: Coronary Artery Disease (CAD), Cancer, CVA/TIA, Diabetes Mellitus, GERD/Reflux, Hypertension, Osteoarthritis (OA) Additional Past Medical History / Comment(s): SKIN CANCER , KIDNEY STONES, urinary leakage History of Any Multi-Drug Resistant Organisms: None Reported Past Surgical History: Adenoidectomy, Section, Cholecystectomy, Heart Catheterization, Heart Catheterization With Stent, Joint Replacement, Orthopedic Surgery, Tonsillectomy, Tubal Ligation Additional Past Surgical History / Comment(s): CATARACT BILATERAL EYE, TOTAL mallorie KNEE replacement, BILATERAL CARPAL TUNNEL RELEASE,C- SECTION X3, 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 stress test in 10/29 Past Anesthesia/Blood Transfusion Reactions: Motion Sickness Date of Last Stent Placement:: 10/2008 Type of Cardiac Device: Loop Device Placement Date:: loop monitor placed May Past Psychological History: No Psychological Hx Reported Smoking Status: Never smoker Past Alcohol Use History: None Reported Past Drug Use History: None Reported
[2024-10-28 10:24] VITALS: BMI 27.8
[2024-10-28 11:20] LABS: Glucose,Whole Blood 219 mg/dL (70-110)
--- NOTE | 2024-10-28 11:49 | P.PN ---
Subjective This is a 74-year-old female patient of Dr. Jones with past medical history of coronary artery disease with previous stenting, hypertension, dyslipidemia, diabetes mellitus type 2, TIA, obesity. We have been asked to evaluate the patient for chest pain. Patient states that she developed a sharp brief episode of chest pain and then her whole body felt like nerves and she developed a cold sweat. Symptoms are gone at this time. She is ambulating in the hallway without chest pain. Patient states that she has lost 130 pounds with the use of Mounjaro, diet and exercise. Blood pressure 135/66, heart rate 65, pulse ox 98% on room air. Patient has been resumed on her home cardiac medications. Discussed option for stress test and patient states that she has had a chemical stress test in the past but since she is lost weight she feels that she is capable of doing walking treadmill stress test. -EKG: Sinus rhythm with no acute ST-T wave changes. -Chest x-ray: No acute process. -Laboratory studies: CBC unremarkable. INR and D-dimer normal. Sodium 136, creatinine 0.55. Blood sugar 168. Magnesium 2.0. Troponin negative x 2. pro BNP 234. -Home cardiac medications: Aspirin 81 mg twice daily, atorvastatin 80 mg at bedtime, benazepril 20 mg at bedtime, Zetia 10 mg daily, Imdur 30 mg twice daily, metoprolol succinate 50 mg daily, patient also on Mounjaro. -Echocardiogram performed 10/26/2024: EF 55%, mild concentric LVH. Mild aortic regurgitation, mild tricuspid regurgitation. - Cardiac catheterization performed 04/01/2022 revealed LVEDP 15 mmHg, patent left circumflex stent, LAD with mild nonobstructive disease. -PCI of the left circumflex was performed 10/2008 -Echocardiogram performed 04/02/2022 revealed EF 60 to 65%, RVSP 27 mmHg. -Devices: [employer] loop recorder placed 05/23/2021 for monitoring after prior TIA -Lexiscan stress test performed 11/01/2020 negative Lexiscan stress test. Normal perfusion study. Normal gated images with ejection fraction 55%. 10/27 Yesterday, patient underwent a stress echocardiogram which revealed poor exercise capacity only achieving 4.2 METS. Normal hemodynamic and clinical resp onse to treadmill exercise. Abnormal echocardiogram response to treadmill exercise concerning for stress-induced ischemia in LAD territory. Nonischemic EKG response to treadmill exercise. Results reviewed with the patient with recommendations for cardiac catheterization which she is agreeable to move forward with this today. Blood pressure 122/60, heart rate 79, pulse ox 100% on room air. TSH 2.17. A1c 7.0, triglycerides 73, cholesterol 114, LDL 46. 10/28 Patient seen and examined. Patient underwent catheterization with LAD stenosis and underwent stenting from a femoral site. No further chest pain or pressure. No significant dyspnea. No hematoma at her groin site. Physical examination: Gen: This is 74-year-old female in no acute distress. VS: reviewed HEENT: Head is atraumatic, normocephalic. Pupils equal, round. Sclerae is anicteric. NECK: Supple. No JVD. LUNGS: Clear to auscultation. No wheezes or rhonchi. No intercostal retractions. HEART: Regular rate and rhythm. No murmur. ABDOMEN: Soft No tenderness. EXTREMITIES: No pedal edema. No calf tenderness. NEUROLOGICAL: Patient is awake, alert and oriented x3. Assessment: Atypical chest pain, acute coronary syndrome ruled out History of coronary artery disease with previous stenting in 2008 Hypertension Dyslipidemia Diabetes mellitus type 2 History of TIA Obesity with weight loss using Mounjaro, exercise and diet CAD status post PCI of LAD 10/27 Plan: Patient status post PCI. No significant hematoma and appears stable. Stable for discharge home on aspirin and Brilinta. Follow-up in the office in 1 to 2 w eeks. Objective - Vital Signs Vital signs: Vital Signs Temp 97.8 F 10/27/24 20:00 Pulse 80 10/28/24 08:00 Resp 18 10/28/24 08:00 BP 99/61 10/28/24 08:00 Pulse Ox 96 10/28/24 11:12 FiO2 Intake & Output 10/27/24 10/28/24 10/28/24 18:59 06:59 18:59 Intake Total 100 120 Output Total 200 Balance -100 120 Weight 69.2 kg 69.2 kg Intake: IV 100 Oral 120 Output: Urine 200 Other: Voiding Method Toilet Toilet Toilet Bedpan Bedpan # Voids 2 - Labs CBC & Chem 7: 10/28/24 05:19 10/28/24 05:19 Labs: Abnormal Lab Results - Last 24 Hours (Table) 10/27/24 10/28/24 10/28/24 Range/Units 20:17 05:19 05:19 RBC 3.71 L (4.10-5.20) 10*6/uL Hgb 11.2 L (12.0-15.0) g/dL Hct 33.2 L (37.2-46.3) % MPV 9.2 L (9.5-12.2) fL Sodium 135 L (137-145) mmol/L Glucose 120 H (74-99) mg/dL POC Glucose (mg/dL) 116 H (70-110) mg/dL 10/28/24 10/28/24 Range/Units 05:57 11:16 RBC (4.10-5.20) 10*6/uL Hgb (12.0-15.0) g/dL Hct (37.2-46.3) % MPV (9.5-12.2) fL Sodium (137-145) mmol/L Glucose (74-99) mg/dL POC Glucose (mg/dL) 129 H 219 H (70-110) mg/dL
[2024-10-28 11:52] VITALS: BP 120/67; PULSE 91
--- NOTE | 2024-10-28 19:40 | P.DS ---
Providers Date of admission: 10/26/24 09:29 Expected date of discharge: 10/28/24 Attending physician: Stevo Zapata Consults: 10/26/24 09:29 Consult Physician Urgent Consulting Provider: Asif Fowler Consult Reason/Comments: chest pain Do you want consulting provider notified?: Yes 10/27/24 15:11 Consult Physician Routine Consulting Provider: [facility] Consult Reason/Comments: Post Interventional Patient Do you want consulting provider notified?: Already Contacted Primary care physician: [facility] Course: Chief Complaint: Chest pain This is a very pleasant 74-year-old patient of Dr. Hernandez. Chronic stable medical conditions include coronary artery disease with stent in 2008, diabetes, GERD, hypertension, osteoarthritis, urinary incontinence. Patient follows with her electric system operator Dr. Yuriy Jones. Patient has been taking Mounjaro for close to year. Has lost 100 pounds. Patient this morning developed shopped left-sided chest pain. May have lasted about 10 minutes. But also broke out into a cold sweat. Started feeling out of sorts with discomfort with the arms. Decided to come in. Pain did not radiate. No dizziness no lightheadedness. Chief Complaint: Chest pain This is a very pleasant 74-year-old patient of Dr. Hernandez. Chronic stable medical conditions include coronary artery disease with stent in 2008, diabetes, GERD, hypertension, osteoarthritis, urinary incontinence. Patient follows with her electric system operator Dr. Yuriy Jones. Patient has been taking Mounjaro for close to year. Has lost 100 pounds. Patient this morning developed shopped left-sided chest pain. May have lasted about 10 minutes. But also broke out into a cold sweat. Started feeling out of sorts with discomfort with the arms. Decided to come in. Pain did not radiate. No dizziness no lightheadedness. October 27: Patient underwent cardiac catheterization with a stent to the LAD/KEELEY. IFR and IVUS and lithotripsy balloon was used. Postprocedure laying in bed. Comfortable. No chest pain. Earlier stress echocardiogram was negative October 28: Doing well. No cardiac symptoms. Up and about. Questions answered. Told patient to hold off of Mounjaro until she follows up with pharmacovigilance safety expert Dr. Vito Badillo. Social history: Does not smoke or drink alcohol. Lives with the Physical examination: VITAL SIGNS: 91, 18, 120 x 67, 98% room GENERAL: Sitting at the edge of the bed, comfortable EYES: Pupils equal. Conjunctiva normal. HEENT: External appearance of nose and ears normal, oral cavity grossly normal. NECK: JVD not raised; masses not palpable. HEART: First and second heart sounds are normal; no edema. LUNGS: Respiratory rate normal; clear to auscultation. ABDOMEN: Soft, nontender, liver spleen not palpable, no masses palpable. PSYCH: Alert and oriented x3; mood and affect normal. Musculoskeletal: OA INVESTIGATIONS, reviewed in the clinical context: October 28: White count 7.8 hemoglobin 11.2 platelets 229 potassium 4.1 creatinine 0.63 Stress echocardiogram: Poor exercise capacity. Normal hemodynamic and clinical response to treadmill exercise. Abnormal echocardiographic response to treadmill exercise. 2D echo: EF 55%. October 26, 2024: White count 6.7 hemoglobin 14 platelets 239 sodium 136 potassium 4.7 creatinine 0.55 HbA1c 7 Troponin I less than 0.012 x 3 proBNP 234 LDL 46.6 e EKG tracing personally reviewed by me-normal sinus rhythm. Some ST depressions in inferolateral leads Chest x-ray film personally reviewed by me-some hyperinflation Assessment and plan: -Possible unstable angina in a patient with known coronary artery disease Aspirin. Toprol-XL. Cardiology consulted. Stress test. -Cardiac catheterization with the 50-60% mid LAD calcific disease. 40% mid RCA calcific disease. iFR done. Stent done to LAD/KEELEY Coronary artery disease with a stent, in [address] Yuriy Jones/electric system operator Aspirin. Lipitor. Toprol-XL Brilinta added -Diabetes mellitus type 2, oral hypoglycemic Mounjaro. Metformin. Actos. -GERD Protonix -Essential hypertension Toprol-XL benazepril -Primary osteoarthritis Tylenol as needed -Urinary stress incontinence -Patient has lost over 100 pounds. Used to be morbidly obese. Has been on Mounjaro. - Full code Disposition: Home Past Medical History Past Medical History: Coronary Artery Disease (CAD), Cancer, CVA/TIA, Diabetes Mellitus, GERD/Reflux, Hypertension, Osteoarthritis (OA) Additional Past Medical History / Comment(s): SKIN CANCER , KIDNEY STONES, urinary leakage History of Any Multi-Drug Resistant Organisms: None Reported Past Surgical History: Adenoidectomy, Section, Cholecystectomy, Heart Catheterization, Heart Catheterization With Stent, Joint Replacement, Orthopedic Surgery, Tonsillectomy, Tubal Ligation Additional Past Surgical History / Comment(s): CATARACT BILATERAL EYE, TOTAL mallorie KNEE replacement, BILATERAL CARPAL TUNNEL RELEASE,C- SECTION X3, 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 stress test in 10/29 Past Anesthesia/Blood Transfusion Reactions: Motion Sickness Date of Last Stent Placement:: 10/2008 Type of Cardiac Device: Loop Device Placement Date:: loop monitor placed May Past Psychological History: No Psychological Hx Reported Smoking Status: Never smoker Past Alcohol Use History: None Reported Past Drug Use History: None Reported Social history: Does not smoke or drink alcohol. Lives with the Physical examination: VITAL SIGNS: 97.5, 75, 20, 150 x 86, 98% room air GENERAL: BMI 27.4, sitting up in the chair awake comfortable EYES: Pupils equal. Conjunctiva normal. HEENT: External appearance of nose and ears normal, oral cavity grossly normal. NECK: JVD not raised; masses not palpable. HEART: First and second heart sounds are normal; no edema. LUNGS: Respiratory rate normal; clear to auscultation. ABDOMEN: Soft, nontender, liver spleen not palpable, no masses palpable. PSYCH: Alert and oriented x3; mood and affect normal. Musculoskeletal: OA NEUROLOGICAL: Cranial nerves grossly intact; no facial asymmetry, power and sensation grossly intact. LYMPHATICS: No lymph nodes palpable in the axilla and neck INVESTIGATIONS, reviewed in the clinical context: October 26, 2024: White count 6.7 hemoglobin 14 platelets 239 sodium 136 potassium 4.7 creatinine 0.55 HbA1c 7 Troponin I less than 0.012 x 3 proBNP 234 LDL 46.6 e EKG tracing personally reviewed by me-normal sinus rhythm. Some ST depressions in inferolateral leads Chest x-ray film personally reviewed by me-some hyperinflation Assessment and plan: -Possible unstable angina in a patient with known coronary artery disease Aspirin. Toprol-XL. Cardiology consulted. Stress test. -Coronary artery disease with a stent, in [address] Yuriy Jones/electric system operator Aspirin. Lipitor. Toprol-XL -Diabetes mellitus type 2, oral hypoglycemic Mounjaro. Metformin. Actos. -GERD Protonix -Essential hypertension Toprol-XL benazepril -Primary osteoarthritis Tylenol as needed -Urinary stress incontinence -Patient has lost over 100 pounds. Used to be morbidly obese. Has been on Mounjaro. - Full code Past Medical History Past Medical History: Coronary Artery Disease (CAD), Cancer, CVA/TIA, Diabetes Mellitus, GERD/Reflux, Hypertension, Osteoarthritis (OA) Additional Past Medical History / Comment(s): SKIN CANCER , KIDNEY STONES, urinary leakage History of Any Multi-Drug Resistant Organisms: None Reported Past Surgical History: Adenoidectomy, Section, Cholecystectomy, Heart Catheterization, Heart Catheterization With Stent, Joint Replacement, Orthopedic Surgery, Tonsillectomy, Tubal Ligation Additional Past Surgical History / Comment(s): CATARACT BILATERAL EYE, TOTAL mallorie KNEE replacement, BILATERAL CARPAL TUNNEL RELEASE,C- SECTION X3, 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 stress test in 10/29 Past Anesthesia/Blood Transfusion Reactions: Motion Sickness Date of Last Stent Placement:: 10/2008 Type of Cardiac Device: Loop Device Placement Date:: loop monitor placed May Past Psychological History: No Psychological Hx Reported Smoking Status: Never smoker Past Alcohol Use History: None Reported Past Drug Use History: None Reported Plan - Discharge Summary New Discharge Prescriptions: New Nitroglycerin Sl Tabs [Nitrostat] 0.4 mg SUBLINGUAL Q5M PRN #30 tab PRN Reason: Chest Pain Aspirin 81 mg PO DAILY tab Ticagrelor [Brilinta] 90 mg PO BID #60 tab Continue Atorvastatin [Lipitor] 80 mg PO HS Metoprolol Succinate [Toprol XL] 50 mg PO DAILY Ezetimibe [Zetia] 10 mg PO DAILY 30 Days #30 tab Benazepril HCl 20 mg PO HS Pantoprazole [Protonix] 40 mg PO AC-BRKFST Cyanocobalamin [Vitamin B-12] 500 mcg PO BID metFORMIN HCL ER [Glucophage XR] 1,000 mg PO DAILY Isosorbide Mononitrate ER [Imdur] 30 mg PO BID Cholecalciferol [Vitamin D3 (25 Mcg = 1000 Iu)] 50 mcg PO BID metFORMIN HCL ER [Glucophage XR] 500 mg PO HS Pioglitazone [Actos] 30 mg PO DAILY Discontinued Aspirin 81 mg PO BID No Action Tirzepatide [Mounjaro] 10 mg SQ PATEL Discharge Medication List Atorvastatin [Lipitor] 80 mg PO HS 07/21/14 [History] Metoprolol Succinate [Toprol XL] 50 mg PO DAILY 09/27/15 [History] Ezetimibe [Zetia] 10 mg PO DAILY 30 Days #30 tab 04/19/21 [Rx] Benazepril HCl 20 mg PO HS 05/23/21 [History] Pantoprazole [Protonix] 40 mg PO AC-BRKFST 09/04/21 [History] Cyanocobalamin [Vitamin B-12] 500 mcg PO BID 04/01/22 [History] Cholecalciferol [Vitamin D3 (25 Mcg = 1000 Iu)] 50 mcg PO BID 10/26/24 [History] Isosorbide Mononitrate ER [Imdur] 30 mg PO BID 10/26/24 [History] Pioglitazone [Actos] 30 mg PO DAILY 10/26/24 [History] Tirzepatide [Mounjaro] 10 mg SQ PATEL 10/26/24 [History] metFORMIN HCL ER [Glucophage XR] 1,000 mg PO DAILY 10/26/24 [History] metFORMIN HCL ER [Glucophage XR] 500 mg PO HS 10/26/24 [History] Aspirin 81 mg PO DAILY tab 10/28/24 [Rx] Nitroglycerin Sl Tabs [Nitrostat] 0.4 mg SUBLINGUAL Q5M PRN #30 tab 10/28/24 [Rx] Ticagrelor [Brilinta] 90 mg PO BID #60 tab 10/28/24 [Rx] Follow up Appointment(s)/Referral(s): Yuriy Jones MD [STAFF PHYSICIAN] - 1 Week (Appt 11/04/24 11:15am) Lukas Hernandez DO [Primary Care Provider] - 1-2 days (Appt 11/01 11:20am) Activity/Diet/Wound Care/Special Instructions: hold mounjaro until ok with pharmacovigilance safety expert Discharge Disposition: HOME WITH HOME HEALTH SERVICES
[2024-10-30] MEDS ORDERED: Tirzepatide [Mounjaro] 10 MG/0.5 ML Pen.Injctr SQ SCH (09:00)
== END 2024-10-28 13:39 | disposition home health service (06) | DRG 324 ==
LOC: EC 07:38 → 6NMEDSUR 09:29 → UNDOADMOB 09:29 → 3SCARD 09:30 → 6NMEDSUR 09:48 → 3SCARD 10-27 15:16 → UNDODISOB 10-28 13:39
PROVIDERS: ADMIT Hospitalist; ATTEND Hospitalist
PROC: 02F03ZZ Fragmentation in Coronary Artery, One Artery, Percutaneous Approach (ICD-10-PCS; 2024-10-27)
PROC: B240ZZ3 Ultrasonography of Single Coronary Artery, Intravascular (ICD-10-PCS; 2024-10-27)
PROC: 4A023N7 Measurement of Cardiac Sampling and Pressure, Left Heart, Percutaneous Approach (ICD-10-PCS; principal; 2024-10-27 13:00)
PROC: B2111ZZ Fluoroscopy of Multiple Coronary Arteries using Low Osmolar Contrast (ICD-10-PCS; 2024-10-27 13:00)
PROC: 4A033BC Measurement of Arterial Pressure, Coronary, Percutaneous Approach (ICD-10-PCS; 2024-10-27 13:00)
PROC: 027036Z Dilation of Coronary Artery, One Artery with Three Drug-eluting Intraluminal Devices, Percutaneous Approach (ICD-10-PCS; 2024-10-27 13:00)
DX: I25.110 Atherosclerotic heart disease of native coronary artery with unstable angina pectoris (principal); E11.9 Type 2 diabetes mellitus without complications; I10 Essential (primary) hypertension; E66.9 Obesity, unspecified; I35.1 Nonrheumatic aortic (valve) insufficiency; Z68.27 Body mass index [BMI] 27.0-27.9, adult; M19.90 Unspecified osteoarthritis, unspecified site; K21.9 Gastro-esophageal reflux disease without esophagitis; N39.3 Stress incontinence (female) (male); Z86.73 Personal history of transient ischemic attack (TIA), and cerebral infarction without residual deficits; Z79.85 Long-term (current) use of injectable non-insulin antidiabetic drugs
CPT/HCPCS: 36415; 71046; 80048; 80053; 80061; 83036; 83735; 83880; 84443; 84484; 85025; 85379; 85610; 85730; 92972; 92978; 93005; 93306; 93351; 93458; 93799; 94760; 99285